=== PATIENT | female | born 1950 | race Caucasian/White ===

== ENCOUNTER 2021-08-05 08:34 | Outpatient (CLI) | payer MEDICARE | END 2021-08-05 08:35 | disposition home or self-care (01) | LOC: CSHWCC 08:34 | PROVIDERS: ATTEND Nurse Practitioner Family | DX: I83.12 Varicose veins of left lower extremity with inflammation (principal); S90.562D Insect bite (nonvenomous), left ankle, subsequent encounter; E11.622 Type 2 diabetes mellitus with other skin ulcer; L97.321 Non-pressure chronic ulcer of left ankle limited to breakdown of skin; L97.821 Non-pressure chronic ulcer of other part of left lower leg limited to breakdown of skin; E11.65 Type 2 diabetes mellitus with hyperglycemia; D64.9 Anemia, unspecified; E78.2 Mixed hyperlipidemia; G99.0 Autonomic neuropathy in diseases classified elsewhere; I10 Essential (primary) hypertension; I89.0 Lymphedema, not elsewhere classified; R60.0 Localized edema | CPT/HCPCS: 97139; G0463; 99213 ==

== ENCOUNTER 2021-08-06 14:22 | Outpatient (CLI) | payer MEDICARE | END 2021-08-06 14:23 | disposition home or self-care (01) | LOC: CSHULT 14:22 | PROVIDERS: ATTEND Student in an Organized Health Care Education/Training Program | DX: R60.0 Localized edema (principal) ==

== ENCOUNTER 2021-08-19 11:27 | Outpatient (CLI) | payer MEDICARE | END 2021-08-19 11:28 | disposition home or self-care (01) | LOC: CSHWCC 11:27 | PROVIDERS: ATTEND Nurse Practitioner Family | DX: I83.12 Varicose veins of left lower extremity with inflammation (principal); S80.822D Blister (nonthermal), left lower leg, subsequent encounter; S90.562D Insect bite (nonvenomous), left ankle, subsequent encounter; L97.321 Non-pressure chronic ulcer of left ankle limited to breakdown of skin; L97.821 Non-pressure chronic ulcer of other part of left lower leg limited to breakdown of skin; D64.9 Anemia, unspecified; E11.65 Type 2 diabetes mellitus with hyperglycemia; E78.2 Mixed hyperlipidemia; G99.0 Autonomic neuropathy in diseases classified elsewhere; I10 Essential (primary) hypertension; I89.0 Lymphedema, not elsewhere classified; R60.0 Localized edema ==

== ENCOUNTER 2021-09-20 09:00 | Emergency (ER) | payer MEDICARE ==
[2021-09-20 09:35] LABS: #Eosinphils 0.5 10x3/uL (0.0-0.5); #Monocytes 0.6 10x3/uL (0.0-1.1); #Neutrophils 3.8 10x3/uL (1.5-8.4); %Basophils 0.7 % (0.0-2.0); %Eosinophils 9.1 % (0.0-6.0); %Lymphocytes 11.4 % (18.0-47.0); %Neutrophils 68.6 % (40.0-75.0); Hemoglobin 9.6 g/dL (12.0-15.5); Mean Corpuscular HGB CONC 30.9 g/dL (32.0-36.0); Mean Corpuscular Hemoglobin 27.3 pg (27.0-33.0); Mean Corpuscular Volume 88.4 fl (81.6-98.3); Platelet Count 249 10x3/uL (150-450); RBC Distribution Width 16.2 % (11.5-14.5); Red Blood Cell (RBC) Count 3.52 10x6/uL (3.90-5.03); White Blood Cell (WBC) Count 5.5 10x3/uL (3.5-10.5)
[2021-09-20 09:50] LABS: ALT (SGPT) 17 U/L (8-55); AST (SGOT) 17 U/L (5-34); Albumin 3.3 g/dL (3.4-4.8); Alkaline Phosphatase 85 U/L (40-110); Anion Gap 16 mmol/L (10-20); BUN (Urea Nitrogen) 40 mg/dL (9.8-20.1); Bilirubin, Total 0.4 mg/dL (0.2-1.2); Calc. Creatinine Clearance 0 mL/min (70-130); Calcium 8.9 mg/dL (7.8-10.44); Carbon Dioxide 26 mmol/L (23-31); Chloride 104 mmol/L (98-107); Globulin 3.7 g/dL (2.4-3.5); Glucose 88 mg/dL (80-115); Potassium 3.7 mmol/L (3.5-5.1); Sodium 142 mmol/L (136-145)
== END 2021-09-20 10:30 | disposition home or self-care (01) ==
LOC: CSHERS 09:00
DX: I83.891 Varicose veins of right lower extremity with other complications (principal); E78.5 Hyperlipidemia, unspecified; E03.9 Hypothyroidism, unspecified; I10 Essential (primary) hypertension; E11.9 Type 2 diabetes mellitus without complications
CPT/HCPCS: 36415; 80053; 85025; 99283

== ENCOUNTER 2022-01-28 13:05 | Outpatient (CLI) | payer MEDICARE | END 2022-01-28 13:06 | disposition home or self-care (01) | LOC: CSHWCC 13:05 | PROVIDERS: ATTEND Nurse Practitioner Family | DX: I87.333 Chronic venous hypertension (idiopathic) with ulcer and inflammation of bilateral lower extremity (principal); L97.812 Non-pressure chronic ulcer of other part of right lower leg with fat layer exposed; L97.822 Non-pressure chronic ulcer of other part of left lower leg with fat layer exposed; R60.0 Localized edema; R21 Rash and other nonspecific skin eruption | CPT/HCPCS: 29581; 87206 ==

== ENCOUNTER 2022-02-11 09:53 | Outpatient (CLI) | payer MEDICARE | END 2022-02-11 09:54 | disposition home or self-care (01) | LOC: CSHWCC 09:53 | PROVIDERS: ATTEND Nurse Practitioner Family | DX: I87.332 Chronic venous hypertension (idiopathic) with ulcer and inflammation of left lower extremity (principal); L97.822 Non-pressure chronic ulcer of other part of left lower leg with fat layer exposed; R60.0 Localized edema ==

== ENCOUNTER 2022-02-25 08:19 | Outpatient (CLI) | payer MEDICARE | END 2022-02-25 08:20 | disposition home or self-care (01) | LOC: CSHWCC 08:19 | PROVIDERS: ATTEND Nurse Practitioner Family | DX: I87.333 Chronic venous hypertension (idiopathic) with ulcer and inflammation of bilateral lower extremity (principal); L97.812 Non-pressure chronic ulcer of other part of right lower leg with fat layer exposed; L97.822 Non-pressure chronic ulcer of other part of left lower leg with fat layer exposed; R60.0 Localized edema ==

== ENCOUNTER 2022-03-10 03:11 | Inpatient (IN) | payer MEDICARE ==
[2022-03-10] MEDS ORDERED: Ketorolac Tromethamine 30 MG/ML VIAL ONE (03:37)
[2022-03-10] MEDS ORDERED: Cefepime 2 GM VIAL ONE (03:46)
[2022-03-10] MEDS ORDERED: NOREPINEPHRINE 8 MG/250 ML-D5W 250 ML ONE (05:07)
[2022-03-10] MEDS ORDERED: NOREPINEPHRINE 8 MG/250 ML-D5W 250 ML IVPB SCH ×3 (07:15→16:15)
[2022-03-10 07:24] VITALS: BMI 43.2
[2022-03-10] MEDS ORDERED: VANCOMYCIN 2 GRAM/400 ML BAG 2 GM in Premix Bag 1 BAG IVPB SCH ×2 (07:45→08:00)
[2022-03-10] MEDS ORDERED: Aspirin Chewable 81 MG TAB PO SCH (08:00)
[2022-03-10 08:02] LABS: SARS-CoV-2 NAA Rapid Test Not Detected (NotDetected)
[2022-03-10 08:04] LABS: Bilirubin Neg (Negative); Blood, Urine 10 (Negative); Clarity Clear (Clear); Glucose, Urine (Dipstick) >=1000 mg/dL (Negative); Ketone, Urine 5 mg/dL (Negative); Leukocyte Negative (Negative); Nitrite Negative (Negative); Protein, Urine (Dipstick) 30 mg/dl (Neg-Trace); Urobilinogen Normal mg/dL (Less than 2)
[2022-03-10 08:05] LABS: Bacteria/HPF None Seen HPF (None Seen); RBC/HPF 0-3 HPF (0-3); Squamous Epithelial 0-3 HPF (0-3); WBC/HPF 0-3 HPF (0-3)
[2022-03-10 08:20] LABS: ALT (SGPT) 17 U/L (8-55); AST (SGOT) 24 U/L (5-34); Albumin 3.6 g/dL (3.4-4.8); Alkaline Phosphatase 96 U/L (40-110); Anion Gap 22 mmol/L (10-20); BUN (Urea Nitrogen) 34 mg/dL (9.8-20.1); Calc. Creatinine Clearance 61 mL/min (70-130); Calcium 9.6 mg/dL (7.8-10.44); Carbon Dioxide 22 mmol/L (23-31); Chloride 96 mmol/L (98-107); Estimated GFR 33; Globulin 3.9 g/dL (2.4-3.5); Glucose 266 mg/dL (83-110); Protein, Total 7.5 g/dL (5.8-8.1); Sodium 136 mmol/L (136-145)
[2022-03-10 08:21] LABS: Critical Call Chemistry NOT CRITICAL BUT CAL
[2022-03-10 08:23] LABS: Magnesium 1.7 mg/dL (1.6-2.6)
[2022-03-10 08:35] LABS: Glucose 246 mg/dL (83-110)
[2022-03-10 08:50] LABS: CKMB 7.7 ng/mL (0-6.6)
[2022-03-10 08:50] LABS: PTT 26.5 sec (22.0-33.0); Prothrombin Time 10.7 sec (9.5-12.1)
[2022-03-10] MEDS ORDERED: Furosemide 40 MG/4 ML VIAL SLOW IVP SCH (09:00)
[2022-03-10] MEDS ORDERED: Enoxaparin Sodium 40 MG/0.4 ML SYRINGE SC SCH (09:00)
[2022-03-10] MEDS: Lactated Ringer's 1,000 ML IV SCH ×2 (09:08→22:02)
[2022-03-10] MEDS: Pantoprazole 40 MG VIAL IVP SCH (09:08)
[2022-03-10] MEDS ORDERED: Communication Order-Pharmacy FS SCH (09:15)
[2022-03-10 09:34] LABS: CKMB 19.4 ng/mL (0-6.6)
[2022-03-10] MEDS ORDERED: Dextrose 50% Abboject 50 ML SYRINGE SLOW IVP PRN (09:38)
[2022-03-10] MEDS ORDERED: Dextrose 5% in Water 1,000 ML IV PRN (09:38)
[2022-03-10 10:17] LABS: Mean Corpuscular Volume 81.2 fl (81.6-98.3); Red Blood Cell (RBC) Count 3.83 10x6/uL (3.90-5.03); White Blood Cell (WBC) Count 18.5 10x3/uL (3.5-10.5)
[2022-03-10 10:18] LABS: MDiff Complete? YES; Manual Diff?? YES; Mean Corpuscular HGB CONC 32.2 g/dL (32.0-36.0); Mean Corpuscular Hemoglobin 26.1 pg (27.0-33.0); Mean Platelet Volume 8.7 fl (7.4-10.4); Platelet Count 394 10x3/uL (150-450); RBC Distribution Width 19.3 % (11.5-14.5)
[2022-03-10] MEDS ORDERED: Nitroglycerin 50 MG/250 ML BOT 250 ML ONE (10:56)
[2022-03-10] MEDS ORDERED: Heparin 10,000 UNITS/ 10 ML VIAL ONE (10:56)
[2022-03-10] MEDS ORDERED: Bivalirudin 250 MG VIAL ONE (10:57)
[2022-03-10] MEDS ORDERED: Adenosine 6 MG/2 ML VIAL ONE (10:57)
[2022-03-10] MEDS ORDERED: Verapamil 5 MG/2 ML VIAL ONE (10:57)
[2022-03-10] MEDS ORDERED: Lidocaine 1% 20 ML MDV ONE (10:58)
[2022-03-10] MEDS ORDERED: Midazolam HCl 2 mg/2 ml Vial ONE (10:59)
[2022-03-10] MEDS ORDERED: Fentanyl 100 MCG/2 ML VIAL ONE (10:59)
[2022-03-10 11:46] LABS: Band 26 % (5-11); Eosinophils 1 % (0-10); Lymphocytes 1 % (21-51); Monocytes 5 % (0-10); Neutrophil 65 % (42-75); Platelet Morphology Comment Appears Adequate; Reactive Lymphocytes 1 % (0-10)
[2022-03-10 11:47] LABS: Anisocytosis SLIGHT = 6-15 cells (100X) (0-5/hpf); Hypochromia SLIGHT = 6-15 cells (100X) (0-5/hpf); Macrocytosis SLIGHT = 6-15 cells (100X) (0-5/hpf); Microcytosis SLIGHT = 6-15 cells (100X) (0-5/hpf); Polychromasia SLIGHT = 2-3 cells (100X) (0-2/hpf)
[2022-03-10 11:48] LABS: Schistocytes SLIGHT = 2-5 cells (100X) (0-1/hpf); Toxic Granulation SLIGHT; Vacuoles SLIGHT
[2022-03-10] MEDS ORDERED: Nitroglycerin 0.4 MG TAB (25 Tab Bottle) SL PRN (11:54)
[2022-03-10] MEDS ORDERED: Sodium Chloride 0.9% 200 ML IV PRN (11:54)
[2022-03-10] MEDS ORDERED: Acetaminophen/Codeine 30-300mg Tablet PO PRN ×2 (11:54)
[2022-03-10] MEDS ORDERED: Vancomycin HCl 750 MG in Sodium Chloride 0.9% 250 ML 250 ML IVPB SCH (12:00)
[2022-03-10] MEDS: DOBUTamine 500 mg/250 ml 250 ML IVPB SCH ×2 (12:18→18:07)
[2022-03-10] MEDS: HumaLOG 300 UNITS/3 ML VIAL SC PRN (12:36)
[2022-03-10] MEDS ORDERED: Iopamidol 300 61% 100 ML VIAL FS ONE (13:48)
[2022-03-10 13:55] LABS: Lactic Acid 1.6 mmol/L (0.5-2.2)
[2022-03-10] MEDS: Gabapentin 100 MG CAP PO SCH ×2 (15:24→20:42)
[2022-03-10] MEDS: Pramipexole Di-HCl 1 MG TAB PO SCH ×2 (15:24→20:44)
[2022-03-10] MEDS: Cefepime 1 GM in Sodium Chloride 0.9% 100 ML IVPB SCH (15:26)
[2022-03-10 18:17] LABS: Actual Bicarbonate (HCO3a) 24.8 mEq/L (22-28); Base Excess (BEa) 0.4 mEq/L (-2.0 to +3.0); CO2 Tension 38.6 mmHg (35.0-45.0); Calcium, Ionized (arterial) 1.08 mmol/L (1.12-1.30); Carboxyhemoglobin (COHb) 0.1 gm% (0.0-3.0); Hemoglobin (Hb) 10.2 g/dL (12.0-16.0); O2 Tension (PaO2), arterial 179.9 mmHg (> 70.0); Puncture Site RRA; pH, Arterial 7.43 (7.35-7.45)
[2022-03-11] MEDS: DOBUTamine 500 mg/250 ml 250 ML IVPB SCH ×2 (00:10→08:19)
[2022-03-11] MEDS: Cefepime 1 GM in Sodium Chloride 0.9% 100 ML IVPB SCH ×2 (03:17→15:57)
[2022-03-11 03:37] LABS: #Monocytes 0.7 10x3/uL (0.0-1.1); #Neutrophils 10.4 10x3/uL (1.5-8.4); %Basophils 0.3 % (0.0-2.0); %Eosinophils 0.3 % (0.0-6.0); %Lymphocytes 3.5 % (18.0-47.0); %Monocytes 5.8 % (0.0-10.0); %Neutrophils 89.8 % (40.0-75.0); Mean Corpuscular HGB CONC 31.1 g/dL (32.0-36.0); Mean Corpuscular Hemoglobin 25.9 pg (27.0-33.0); Mean Corpuscular Volume 83.2 fl (81.6-98.3); Mean Platelet Volume 8.7 fl (7.4-10.4); Platelet Count 277 10x3/uL (150-450); RBC Distribution Width 19.4 % (11.5-14.5); Red Blood Cell (RBC) Count 3.09 10x6/uL (3.90-5.03); White Blood Cell (WBC) Count 11.6 10x3/uL (3.5-10.5)
[2022-03-11 03:52] LABS: ALT (SGPT) 47 U/L (8-55); AST (SGOT) 96 U/L (5-34); Albumin 2.9 g/dL (3.4-4.8); Alkaline Phosphatase 86 U/L (40-110); Anion Gap 15 mmol/L (10-20); BUN (Urea Nitrogen) 34 mg/dL (9.8-20.1); Bilirubin, Total 0.5 mg/dL (0.2-1.2); Calc. Creatinine Clearance 60 mL/min (70-130); Calcium 8.7 mg/dL (7.8-10.44); Carbon Dioxide 26 mmol/L (23-31); Chloride 98 mmol/L (98-107); Estimated GFR 32; Globulin 3.3 g/dL (2.4-3.5); Glucose 150 mg/dL (83-110); Potassium 3.6 mmol/L (3.5-5.1); Protein, Total 6.2 g/dL (5.8-8.1); Sodium 135 mmol/L (136-145)
[2022-03-11] MEDS: Pantoprazole 40 MG VIAL IVP SCH (08:07)
[2022-03-11] MEDS: Atorvastatin Calcium 40 MG TAB PO SCH (08:07)
[2022-03-11] MEDS: Aspirin Chewable 81 MG TAB PO SCH (08:07)
[2022-03-11] MEDS: Gabapentin 100 MG CAP PO SCH ×3 (08:08→21:03)
[2022-03-11] MEDS: Pramipexole Di-HCl 1 MG TAB PO SCH ×3 (08:08→21:03)
[2022-03-11] MEDS: Lactated Ringer's 1,000 ML IV SCH (08:09)
[2022-03-11] MEDS: Enoxaparin Sodium 40 MG/0.4 ML SYRINGE SC SCH (09:06)
[2022-03-11] MEDS ORDERED: VANCOMYCIN 1.25 GM/250 ML BAG 1.25 GM in Premix Bag 1 BAG IVPB SCH (10:00)
[2022-03-11] MEDS: HumaLOG 300 UNITS/3 ML VIAL SC PRN ×2 (11:36→16:09)
[2022-03-11] MEDS: diphenhydrAMINE 30 GM TUBE TOP PRN (16:43)
[2022-03-11] MEDS: Mag-Al 1200 mg/1200 mg/30 ML UDCUP PO SCH (23:02)
[2022-03-11 23:27] LABS: Anion Gap 13 mmol/L (10-20); BUN (Urea Nitrogen) 31 mg/dL (9.8-20.1); Calc. Creatinine Clearance 73 mL/min (70-130); Calcium 9.1 mg/dL (7.8-10.44); Carbon Dioxide 26 mmol/L (23-31); Chloride 98 mmol/L (98-107); Estimated GFR 40; Glucose 145 mg/dL (83-110); Magnesium 1.7 mg/dL (1.6-2.6); Potassium 3.3 mmol/L (3.5-5.1); Sodium 134 mmol/L (136-145)
[2022-03-12] MEDS ORDERED: Potassium Chloride 20 MEQ TAB PO SCH (00:15)
[2022-03-12] MEDS ORDERED: Magnesium Sulfate/D5W 1 GM/100 ML BAG IVPB SCH (00:15)
[2022-03-12] MEDS: Mag-Al 1200 mg/1200 mg/30 ML UDCUP PO SCH (03:20)
[2022-03-12] MEDS: Cefepime 1 GM in Sodium Chloride 0.9% 100 ML IVPB SCH ×2 (03:22→17:03)
[2022-03-12 03:48] LABS: ALV-art Gradient 132.125 mmHg (0-20); Actual Bicarbonate (HCO3a) 27.3 mEq/L (22-28); Base Excess (BEa) 2.1 mEq/L (-2.0 to +3.0); CO2 Tension 45.1 mmHg (35.0-45.0); Calcium, Ionized (arterial) 1.14 mmol/L (1.12-1.30); Carboxyhemoglobin (COHb) 0.1 gm% (0.0-3.0); Hemoglobin (Hb) 10.4 g/dL (12.0-16.0); O2 Tension (PaO2), arterial 96.7 mmHg (> 70.0); Potassium - ABG Lab 3.9 mmol/L (3.70-5.30); Puncture Site RRA
[2022-03-12 04:16] LABS: #Eosinphils 0.1 10x3/uL (0.0-0.5); #Monocytes 0.6 10x3/uL (0.0-1.1); #Neutrophils 8.4 10x3/uL (1.5-8.4); %Basophils 0.4 % (0.0-2.0); %Eosinophils 1.2 % (0.0-6.0); %Lymphocytes 4.4 % (18.0-47.0); %Monocytes 5.8 % (0.0-10.0); %Neutrophils 87.8 % (40.0-75.0); Hemoglobin 8.1 g/dL (12.0-15.5); Mean Corpuscular HGB CONC 30.8 g/dL (32.0-36.0); Mean Corpuscular Hemoglobin 25.7 pg (27.0-33.0); Mean Corpuscular Volume 83.5 fl (81.6-98.3); Mean Platelet Volume 9.1 fl (7.4-10.4); Platelet Count 284 10x3/uL (150-450); RBC Distribution Width 19.3 % (11.5-14.5); Red Blood Cell (RBC) Count 3.15 10x6/uL (3.90-5.03); White Blood Cell (WBC) Count 9.6 10x3/uL (3.5-10.5)
[2022-03-12 04:19] LABS: ALT (SGPT) 58 U/L (8-55); AST (SGOT) 89 U/L (5-34); Alkaline Phosphatase 98 U/L (40-110); Anion Gap 13 mmol/L (10-20); BUN (Urea Nitrogen) 29 mg/dL (9.8-20.1); Bilirubin, Total 0.5 mg/dL (0.2-1.2); Calc. Creatinine Clearance 77 mL/min (70-130); Calcium 8.9 mg/dL (7.8-10.44); Carbon Dioxide 28 mmol/L (23-31); Chloride 99 mmol/L (98-107); Estimated GFR 43; Globulin 3.4 g/dL (2.4-3.5); Glucose 145 mg/dL (83-110); Potassium 4.2 mmol/L (3.5-5.1); Protein, Total 6.4 g/dL (5.8-8.1); Sodium 136 mmol/L (136-145)
[2022-03-12] MEDS: Enoxaparin Sodium 40 MG/0.4 ML SYRINGE SC SCH (09:34)
[2022-03-12] MEDS: Gabapentin 100 MG CAP PO SCH ×3 (09:35→20:28)
[2022-03-12] MEDS: Pramipexole Di-HCl 1 MG TAB PO SCH ×3 (09:35→20:26)
[2022-03-12] MEDS: Atorvastatin Calcium 40 MG TAB PO SCH (09:36)
[2022-03-12] MEDS: Aspirin Chewable 81 MG TAB PO SCH (09:36)
[2022-03-12] MEDS: Pantoprazole 40 MG VIAL IVP SCH (09:36)
[2022-03-12] MEDS: Lactated Ringer's 1,000 ML IV SCH (09:50)
[2022-03-12] MEDS ORDERED: Bumetanide 1 MG/4 ML VIAL IVP SCH ×2 (11:00→14:30)
[2022-03-12] MEDS: HumaLOG 300 UNITS/3 ML VIAL SC PRN (12:10)
[2022-03-12] MEDS: Metoprolol Tartrate 5 MG/5 ML VIAL IVP SCH ×2 (21:05→21:15)
[2022-03-12 21:26] LABS: Anion Gap 13 mmol/L (10-20); BUN (Urea Nitrogen) 34 mg/dL (9.8-20.1); Calc. Creatinine Clearance 63 mL/min (70-130); Calcium 9.1 mg/dL (7.8-10.44); Carbon Dioxide 26 mmol/L (23-31); Chloride 97 mmol/L (98-107); Estimated GFR 34; Glucose 132 mg/dL (83-110); Magnesium 1.8 mg/dL (1.6-2.6); Potassium 3.9 mmol/L (3.5-5.1); Sodium 132 mmol/L (136-145)
[2022-03-12] MEDS ORDERED: Digoxin 0.5 MG/2 ML AMP SLOW IVP SCH (21:30)
[2022-03-12] MEDS: Digoxin 0.5 MG/2 ML AMP SLOW IVP SCH ×2 (21:45→22:04)
[2022-03-12] MEDS: Magnesium Oxide 400 MG TAB PO SCH (22:28)
[2022-03-13] MEDS: diphenhydrAMINE 30 GM TUBE TOP PRN ×2 (00:30→22:53)
[2022-03-13] MEDS ORDERED: Digoxin 0.5 MG/2 ML AMP SLOW IVP SCH (03:30)
[2022-03-13] MEDS: Cefepime 1 GM in Sodium Chloride 0.9% 100 ML IVPB SCH ×2 (04:26→18:17)
[2022-03-13 05:19] LABS: #Basophils 0.1 10x3/uL (0.0-0.2); #Eosinphils 0.1 10x3/uL (0.0-0.5); #Monocytes 0.9 10x3/uL (0.0-1.1); #Neutrophils 8.2 10x3/uL (1.5-8.4); %Basophils 0.6 % (0.0-2.0); %Eosinophils 0.7 % (0.0-6.0); %Lymphocytes 5.3 % (18.0-47.0); %Neutrophils 83.9 % (40.0-75.0); Hemoglobin 8.7 g/dL (12.0-15.5); Mean Corpuscular HGB CONC 30.7 g/dL (32.0-36.0); Mean Corpuscular Hemoglobin 26.3 pg (27.0-33.0); Mean Corpuscular Volume 85.5 fl (81.6-98.3); Mean Platelet Volume 9.2 fl (7.4-10.4); Platelet Count 308 10x3/uL (150-450); RBC Distribution Width 19.2 % (11.5-14.5); Red Blood Cell (RBC) Count 3.31 10x6/uL (3.90-5.03); White Blood Cell (WBC) Count 9.7 10x3/uL (3.5-10.5)
[2022-03-13 05:21] LABS: Anion Gap 12 mmol/L (10-20); BUN (Urea Nitrogen) 38 mg/dL (9.8-20.1); Calc. Creatinine Clearance 44 mL/min (70-130); Carbon Dioxide 30 mmol/L (23-31); Chloride 98 mmol/L (98-107); Estimated GFR 22; Glucose 106 mg/dL (83-110); Magnesium 2.1 mg/dL (1.6-2.6); Potassium 4.3 mmol/L (3.5-5.1); Sodium 136 mmol/L (136-145)
[2022-03-13] MEDS ORDERED: Carvedilol 3.125 MG TAB PO SCH (08:00)
[2022-03-13] MEDS: Magnesium Oxide 400 MG TAB PO SCH (09:14)
[2022-03-13] MEDS: Gabapentin 100 MG CAP PO SCH ×3 (09:14→21:25)
[2022-03-13] MEDS: Aspirin Chewable 81 MG TAB PO SCH (09:14)
[2022-03-13] MEDS: Digoxin 0.25 MG TAB PO SCH (09:14)
[2022-03-13] MEDS: Pantoprazole 40 MG VIAL IVP SCH (09:15)
[2022-03-13] MEDS: Atorvastatin Calcium 40 MG TAB PO SCH (09:15)
[2022-03-13] MEDS: Enoxaparin Sodium 40 MG/0.4 ML SYRINGE SC SCH (09:15)
[2022-03-13] MEDS: Pramipexole Di-HCl 1 MG TAB PO SCH ×3 (09:15→21:25)
[2022-03-13] MEDS ORDERED: Carvedilol 6.25 MG TAB PO SCH (11:00)
[2022-03-13] MEDS: Carvedilol 6.25 MG TAB PO SCH (18:18)
[2022-03-13] MEDS ORDERED: Albuterol Sulfate 2.5 mg/3 ml Neb ONE (20:20)
[2022-03-13] MEDS ORDERED: Ipratropium Bromide 2.5 ml Neb ONE (20:20)
[2022-03-13] MEDS ORDERED: Morphine 4 MG/ML VIAL ONE (20:26)
[2022-03-13] MEDS ORDERED: Morphine 2 MG/ML VIAL SLOW IVP SCH (20:45)
[2022-03-13] MEDS ORDERED: methylPREDNISolone Sod Succ 40 MG VIAL IVP SCH (21:15)
[2022-03-13 21:16] LABS: Actual Bicarbonate (HCO3a) 28.8 mEq/L (22-28); Base Excess (BEa) 2.2 mEq/L (-2.0 to +3.0); CO2 Tension 55.4 mmHg (35.0-45.0); Calcium, Ionized (arterial) 1.13 mmol/L (1.12-1.30); Carboxyhemoglobin (COHb) 0.3 gm% (0.0-3.0); Critical Notified By: CP.PH; Hemoglobin (Hb) 10.1 g/dL (12.0-16.0); O2 Tension (PaO2), arterial 64.5 mmHg (> 70.0); Potassium - ABG Lab 4.4 mmol/L (3.70-5.30); Puncture Site RRA; RapidComm Collect By CP.PH; pH, Arterial 7.33 (7.35-7.45)
[2022-03-14] MEDS ORDERED: diphenhydrAMINE 50 MG/ML VIAL IVP SCH ×2 (00:30→07:00)
[2022-03-14] MEDS ORDERED: diphenhydrAMINE 50 MG/ML VIAL ONE (00:32)
[2022-03-14] MEDS: Lorazepam 2 MG/ML VIAL SLOW IVP PRN ×2 (00:34→05:50)
[2022-03-14] MEDS ORDERED: methylPREDNISolone Sod Succ/PF 125 MG/2 ML VIAL IVP SCH (00:45)
[2022-03-14] MEDS: Hydrocortisone 1% Cream 30 GM TUBE TOP PRN ×2 (01:04→11:16)
[2022-03-14 04:06] LABS: #Monocytes 0.2 10x3/uL (0.0-1.1); #Neutrophils 8.9 10x3/uL (1.5-8.4); %Basophils 0.2 % (0.0-2.0); %Lymphocytes 2.2 % (18.0-47.0); %Monocytes 2.5 % (0.0-10.0); %Neutrophils 94.5 % (40.0-75.0); Hemoglobin 8.7 g/dL (12.0-15.5); Mean Corpuscular HGB CONC 30.9 g/dL (32.0-36.0); Mean Corpuscular Hemoglobin 25.8 pg (27.0-33.0); Mean Corpuscular Volume 83.7 fl (81.6-98.3); Mean Platelet Volume 8.8 fl (7.4-10.4); Platelet Count 296 10x3/uL (150-450); RBC Distribution Width 18.9 % (11.5-14.5); Red Blood Cell (RBC) Count 3.37 10x6/uL (3.90-5.03); White Blood Cell (WBC) Count 9.4 10x3/uL (3.5-10.5)
[2022-03-14] MEDS: Morphine 2 MG/ML VIAL SLOW IVP PRN ×2 (04:13→23:02)
[2022-03-14 04:21] LABS: Anion Gap 16 mmol/L (10-20); BUN (Urea Nitrogen) 50 mg/dL (9.8-20.1); Calc. Creatinine Clearance 28 mL/min (70-130); Calcium 8.9 mg/dL (7.8-10.44); Carbon Dioxide 25 mmol/L (23-31); Chloride 97 mmol/L (98-107); Estimated GFR 13; Glucose 177 mg/dL (83-110); Magnesium 2.3 mg/dL (1.6-2.6); Potassium 5.3 mmol/L (3.5-5.1); Sodium 133 mmol/L (136-145)
[2022-03-14] MEDS: Cefepime 1 GM in Sodium Chloride 0.9% 100 ML IVPB SCH (05:11)
[2022-03-14] MEDS: HumaLOG 300 UNITS/3 ML VIAL SC PRN (09:22)
[2022-03-14] MEDS: Carvedilol 6.25 MG TAB PO SCH ×2 (09:23→17:05)
[2022-03-14] MEDS: Aspirin Chewable 81 MG TAB PO SCH (09:24)
[2022-03-14] MEDS: Digoxin 0.25 MG TAB PO SCH (09:24)
[2022-03-14] MEDS: Atorvastatin Calcium 40 MG TAB PO SCH (09:24)
[2022-03-14] MEDS: Pramipexole Di-HCl 1 MG TAB PO SCH ×3 (09:25→20:56)
[2022-03-14] MEDS: Gabapentin 100 MG CAP PO SCH ×3 (09:25→20:55)
[2022-03-14] MEDS ORDERED: Dexmedetomidine In 0.9 % NaCl 100 ML IVPB SCH (10:15)
[2022-03-14] MEDS ORDERED: methylPREDNISolone Sod Succ 40 MG VIAL IVP SCH (10:15)
[2022-03-14] MEDS: Pantoprazole 40 MG VIAL IVP SCH (11:14)
[2022-03-14] MEDS: diphenhydrAMINE 30 GM TUBE TOP PRN (11:16)
[2022-03-14] MEDS: Enoxaparin Sodium 30 MG/0.3 ML SYRINGE SC SCH (11:22)
[2022-03-14 15:10] LABS: Anion Gap 17 mmol/L (10-20); BUN (Urea Nitrogen) 57 mg/dL (9.8-20.1); Calc. Creatinine Clearance 27 mL/min (70-130); Calcium 9.3 mg/dL (7.8-10.44); Carbon Dioxide 22 mmol/L (23-31); Chloride 96 mmol/L (98-107); Estimated GFR 12; Glucose 176 mg/dL (83-110); Sodium 130 mmol/L (136-145)
[2022-03-14] MEDS: diphenhydrAMINE 50 MG/ML VIAL IVP PRN (15:21)
[2022-03-14 19:44] LABS: Anion Gap 19 mmol/L (10-20); BUN (Urea Nitrogen) 59 mg/dL (9.8-20.1); Calc. Creatinine Clearance 27 mL/min (70-130); Calcium 9.4 mg/dL (7.8-10.44); Carbon Dioxide 20 mmol/L (23-31); Chloride 96 mmol/L (98-107); Estimated GFR 12; Glucose 146 mg/dL (83-110); Potassium 5.5 mmol/L (3.5-5.1); Sodium 129 mmol/L (136-145)
[2022-03-14] MEDS: methylPREDNISolone Sod Succ 40 MG VIAL IVP SCH (20:52)
[2022-03-15 01:40] LABS: Anion Gap 19 mmol/L (10-20); BUN (Urea Nitrogen) 63 mg/dL (9.8-20.1); Calc. Creatinine Clearance 28 mL/min (70-130); Calcium 9.6 mg/dL (7.8-10.44); Carbon Dioxide 21 mmol/L (23-31); Chloride 97 mmol/L (98-107); Estimated GFR 13; Glucose 141 mg/dL (83-110); Potassium 4.9 mmol/L (3.5-5.1); Sodium 132 mmol/L (136-145)
[2022-03-15 04:17] LABS: #Monocytes 0.4 10x3/uL (0.0-1.1); #Neutrophils 8.3 10x3/uL (1.5-8.4); %Lymphocytes 2.8 % (18.0-47.0); %Monocytes 4.3 % (0.0-10.0); %Neutrophils 92.2 % (40.0-75.0); Hemoglobin 9.2 g/dL (12.0-15.5); Mean Corpuscular HGB CONC 31.6 g/dL (32.0-36.0); Mean Corpuscular Hemoglobin 25.8 pg (27.0-33.0); Mean Corpuscular Volume 81.5 fl (81.6-98.3); Platelet Count 342 10x3/uL (150-450); RBC Distribution Width 18.5 % (11.5-14.5); Red Blood Cell (RBC) Count 3.57 10x6/uL (3.90-5.03); White Blood Cell (WBC) Count 8.9 10x3/uL (3.5-10.5)
[2022-03-15 04:23] LABS: Anion Gap 17 mmol/L (10-20); BUN (Urea Nitrogen) 67 mg/dL (9.8-20.1); Calc. Creatinine Clearance 28 mL/min (70-130); Calcium 9.6 mg/dL (7.8-10.44); Carbon Dioxide 25 mmol/L (23-31); Chloride 96 mmol/L (98-107); Estimated GFR 13; Glucose 167 mg/dL (83-110); Magnesium 2.5 mg/dL (1.6-2.6); Phosphorus 5.4 mg/dL (2.3-4.7); Potassium 4.8 mmol/L (3.5-5.1); Sodium 133 mmol/L (136-145)
[2022-03-15] MEDS: Aspirin Chewable 81 MG TAB PO SCH (10:05)
[2022-03-15] MEDS: Atorvastatin Calcium 40 MG TAB PO SCH (10:05)
[2022-03-15] MEDS: methylPREDNISolone Sod Succ 40 MG VIAL IVP SCH ×2 (10:12→20:27)
[2022-03-15] MEDS: Pantoprazole 40 MG VIAL IVP SCH (10:14)
[2022-03-15] MEDS: Gabapentin 100 MG CAP PO SCH ×3 (10:16→20:29)
[2022-03-15] MEDS: Pramipexole Di-HCl 1 MG TAB PO SCH ×3 (10:16→20:28)
[2022-03-15] MEDS: Carvedilol 6.25 MG TAB PO SCH ×2 (10:40→17:12)
[2022-03-15] MEDS: HumaLOG 300 UNITS/3 ML VIAL SC PRN ×3 (11:40→21:51)
[2022-03-15] MEDS ORDERED: Heparin 5,000 UNITS/ML VIAL SC SCH ×2 (12:00→21:00)
[2022-03-15] MEDS ORDERED: Apixaban 5 MG TAB PO SCH (14:00)
[2022-03-15] MEDS: Enoxaparin Sodium 30 MG/0.3 ML SYRINGE SC SCH (19:46)
[2022-03-15] MEDS: diphenhydrAMINE 50 MG/ML VIAL IVP PRN (20:28)
[2022-03-15] MEDS: Apixaban 5 MG TAB PO SCH (20:29)
[2022-03-15] MEDS: Lorazepam 2 MG/ML VIAL SLOW IVP PRN (21:30)
[2022-03-15] MEDS ORDERED: Morphine 2 MG/ML VIAL SLOW IVP PRN (22:20)
[2022-03-16] MEDS ORDERED: Albumin 25% 25 GM/100 ML BOT IVPB SCH (01:00)
[2022-03-16] MEDS ORDERED: NOREPINEPHRINE 8 MG/250 ML-D5W 250 ML IVPB SCH (01:00)
[2022-03-16] MEDS: diphenhydrAMINE 50 MG/ML VIAL IVP PRN ×2 (02:54→11:24)
[2022-03-16] MEDS ORDERED: Sterile Water 10 ML VIAL FS PRN (03:00)
[2022-03-16] MEDS ORDERED: Ziprasidone 20 MG VIAL IM SCH (03:00)
[2022-03-16 04:11] LABS: #Monocytes 0.3 10x3/uL (0.0-1.1); #Neutrophils 9.9 10x3/uL (1.5-8.4); %Basophils 0.1 % (0.0-2.0); %Lymphocytes 2.7 % (18.0-47.0); %Neutrophils 93.5 % (40.0-75.0); Hemoglobin 9.3 g/dL (12.0-15.5); Mean Corpuscular HGB CONC 31.8 g/dL (32.0-36.0); Mean Corpuscular Hemoglobin 25.6 pg (27.0-33.0); Mean Corpuscular Volume 80.4 fl (81.6-98.3); Platelet Count 410 10x3/uL (150-450); RBC Distribution Width 18.7 % (11.5-14.5); Red Blood Cell (RBC) Count 3.63 10x6/uL (3.90-5.03); White Blood Cell (WBC) Count 10.6 10x3/uL (3.5-10.5)
[2022-03-16 04:30] LABS: Anion Gap 16 mmol/L (10-20); BUN (Urea Nitrogen) 88 mg/dL (9.8-20.1); Calc. Creatinine Clearance 27 mL/min (70-130); Calcium 9.2 mg/dL (7.8-10.44); Carbon Dioxide 26 mmol/L (23-31); Chloride 97 mmol/L (98-107); Estimated GFR 12; Glucose 188 mg/dL (83-110); Magnesium 2.6 mg/dL (1.6-2.6); Potassium 4.3 mmol/L (3.5-5.1); Sodium 135 mmol/L (136-145)
[2022-03-16] MEDS ORDERED: cefTRIAXone Sodium 2,000 MG in Syringe 0 ML IVPB SCH (08:45)
[2022-03-16] MEDS ORDERED: cefTRIAXone\\ROCEPHIN 2 GM in Sodium Chloride 0.9% 100 ML IVPB SCH (09:00)
[2022-03-16] MEDS: methylPREDNISolone Sod Succ 40 MG VIAL IVP SCH ×2 (10:30→20:24)
[2022-03-16] MEDS: Pantoprazole 40 MG VIAL IVP SCH (10:30)
[2022-03-16] MEDS: Pramipexole Di-HCl 1 MG TAB PO SCH ×3 (10:54→20:25)
[2022-03-16] MEDS: Apixaban 5 MG TAB PO SCH ×2 (10:54→20:24)
[2022-03-16] MEDS: Atorvastatin Calcium 40 MG TAB PO SCH (10:54)
[2022-03-16] MEDS ORDERED: Bumetanide 1 MG/4 ML VIAL IM SCH (11:00)
[2022-03-16] MEDS: Carvedilol 6.25 MG TAB PO SCH ×2 (11:16→19:18)
[2022-03-16] MEDS: diphenhydrAMINE 30 GM TUBE TOP PRN (12:20)
[2022-03-16] MEDS: Hydrocortisone 1% Cream 30 GM TUBE TOP PRN (12:20)
[2022-03-16] MEDS: HumaLOG 300 UNITS/3 ML VIAL SC PRN ×2 (16:09→20:29)
[2022-03-16] MEDS: Gabapentin 100 MG CAP PO SCH (19:45)
[2022-03-16] MEDS: Ziprasidone 20 MG VIAL IM PRN (20:24)
[2022-03-16] MEDS ORDERED: Sterile Water 10 ML ONE (20:27)
[2022-03-17 04:12] LABS: #Eosinphils 0.1 10x3/uL (0.0-0.5); #Monocytes 0.3 10x3/uL (0.0-1.1); #Neutrophils 6.3 10x3/uL (1.5-8.4); %Eosinophils 1.8 % (0.0-6.0); %Lymphocytes 4.5 % (18.0-47.0); %Monocytes 4.1 % (0.0-10.0); %Neutrophils 89.2 % (40.0-75.0); Hemoglobin 8.6 g/dL (12.0-15.5); Mean Corpuscular HGB CONC 32.1 g/dL (32.0-36.0); Mean Corpuscular Hemoglobin 25.9 pg (27.0-33.0); Mean Corpuscular Volume 80.7 fl (81.6-98.3); Mean Platelet Volume 8.6 fl (7.4-10.4); Platelet Count 332 10x3/uL (150-450); Red Blood Cell (RBC) Count 3.32 10x6/uL (3.90-5.03)
[2022-03-17 06:14] LABS: Anion Gap 15 mmol/L (10-20); BUN (Urea Nitrogen) 100 mg/dL (9.8-20.1); Calc. Creatinine Clearance 30 mL/min (70-130); Calcium 8.9 mg/dL (7.8-10.44); Carbon Dioxide 28 mmol/L (23-31); Chloride 103 mmol/L (98-107); Estimated GFR 14; Glucose 159 mg/dL (83-110); Magnesium 2.8 mg/dL (1.6-2.6); Potassium 4.5 mmol/L (3.5-5.1); Sodium 141 mmol/L (136-145)
[2022-03-17] MEDS ORDERED: Carvedilol 3.125 MG TAB PO SCH (09:00)
[2022-03-17] MEDS: methylPREDNISolone Sod Succ 40 MG VIAL IVP SCH ×2 (09:42→19:58)
[2022-03-17] MEDS: HumaLOG 300 UNITS/3 ML VIAL SC PRN ×3 (09:46→22:03)
[2022-03-17] MEDS: Apixaban 5 MG TAB PO SCH ×2 (09:47→19:57)
[2022-03-17] MEDS: Atorvastatin Calcium 40 MG TAB PO SCH (09:47)
[2022-03-17] MEDS: Pramipexole Di-HCl 1 MG TAB PO SCH ×3 (09:47→19:57)
[2022-03-17] MEDS: Pantoprazole 40 MG VIAL IVP SCH (09:47)
[2022-03-17 12:44] LABS: Creatinine, Urine 65.29 mg/dL (47-110)
[2022-03-17] MEDS: Carvedilol 3.125 MG TAB PO SCH (17:08)
[2022-03-17] MEDS: Carvedilol 6.25 MG TAB PO SCH (19:36)
[2022-03-17] MEDS: Ziprasidone 20 MG VIAL IM PRN (21:02)
[2022-03-17] MEDS ORDERED: Sterile Water 10 ML ONE (21:03)
[2022-03-17] MEDS: Hydrocortisone 1% Cream 30 GM TUBE TOP PRN (21:08)
[2022-03-17] MEDS: diphenhydrAMINE 30 GM TUBE TOP PRN (21:08)
[2022-03-18 03:58] LABS: #Monocytes 0.3 10x3/uL (0.0-1.1); #Neutrophils 4.9 10x3/uL (1.5-8.4); %Lymphocytes 5.2 % (18.0-47.0); %Monocytes 5.6 % (0.0-10.0); %Neutrophils 88.1 % (40.0-75.0); Hemoglobin 8.9 g/dL (12.0-15.5); Mean Corpuscular HGB CONC 31.7 g/dL (32.0-36.0); Mean Corpuscular Hemoglobin 25.7 pg (27.0-33.0); Mean Corpuscular Volume 81.2 fl (81.6-98.3); Mean Platelet Volume 8.8 fl (7.4-10.4); Platelet Count 342 10x3/uL (150-450); RBC Distribution Width 19.3 % (11.5-14.5); Red Blood Cell (RBC) Count 3.46 10x6/uL (3.90-5.03); White Blood Cell (WBC) Count 5.6 10x3/uL (3.5-10.5)
[2022-03-18 04:20] LABS: Anion Gap 14 mmol/L (10-20); BUN (Urea Nitrogen) 98 mg/dL (9.8-20.1); Calc. Creatinine Clearance 41 mL/min (70-130); Calcium 8.7 mg/dL (7.8-10.44); Carbon Dioxide 30 mmol/L (23-31); Chloride 104 mmol/L (98-107); Estimated GFR 20; Glucose 184 mg/dL (83-110); Potassium 4.7 mmol/L (3.5-5.1); Sodium 143 mmol/L (136-145)
[2022-03-18] MEDS: Pantoprazole 40 MG VIAL IVP SCH (08:36)
[2022-03-18] MEDS: methylPREDNISolone Sod Succ 40 MG VIAL IVP SCH ×2 (08:36→21:11)
[2022-03-18] MEDS: Carvedilol 3.125 MG TAB PO SCH ×2 (08:37→17:21)
[2022-03-18] MEDS: Atorvastatin Calcium 40 MG TAB PO SCH (08:38)
[2022-03-18] MEDS: Apixaban 5 MG TAB PO SCH ×2 (08:38→21:11)
[2022-03-18] MEDS: Pramipexole Di-HCl 1 MG TAB PO SCH ×3 (08:38→21:11)
[2022-03-18] MEDS: HumaLOG 300 UNITS/3 ML VIAL SC PRN ×3 (08:50→17:51)
[2022-03-18] MEDS: Hydrocortisone 1% Cream 30 GM TUBE TOP PRN (11:38)
[2022-03-19] MEDS ORDERED: Acetaminophen 325 MG TAB PO SCH (02:15)
[2022-03-19] MEDS ORDERED: Sterile Water 10 ML ONE (04:54)
[2022-03-19] MEDS: Ziprasidone 20 MG VIAL IM PRN (05:00)
[2022-03-19] MEDS ORDERED: Pantoprazole 40 MG VIAL ONE (08:40)
[2022-03-19] MEDS: Pantoprazole 40 MG VIAL IVP SCH (08:42)
[2022-03-19] MEDS: methylPREDNISolone Sod Succ 40 MG VIAL IVP SCH (08:43)
[2022-03-19] MEDS: Carvedilol 3.125 MG TAB PO SCH ×2 (08:46→17:05)
[2022-03-19] MEDS: Atorvastatin Calcium 40 MG TAB PO SCH (08:47)
[2022-03-19] MEDS: Apixaban 5 MG TAB PO SCH ×2 (08:47→22:13)
[2022-03-19] MEDS: Pramipexole Di-HCl 1 MG TAB PO SCH ×3 (08:53→22:12)
[2022-03-19] MEDS: HumaLOG 300 UNITS/3 ML VIAL SC PRN ×2 (08:54→17:06)
[2022-03-19] MEDS: diphenhydrAMINE 50 MG/ML VIAL IVP PRN ×2 (09:06→23:59)
[2022-03-19 09:15] LABS: #Monocytes 0.6 10x3/uL (0.0-1.1); #Neutrophils 5.1 10x3/uL (1.5-8.4); %Basophils 0.2 % (0.0-2.0); %Lymphocytes 7.2 % (18.0-47.0); %Monocytes 9.3 % (0.0-10.0); %Neutrophils 82.2 % (40.0-75.0); Mean Corpuscular HGB CONC 31.3 g/dL (32.0-36.0); Mean Corpuscular Hemoglobin 25.6 pg (27.0-33.0); Mean Corpuscular Volume 81.6 fl (81.6-98.3); Mean Platelet Volume 8.6 fl (7.4-10.4); Platelet Count 343 10x3/uL (150-450); RBC Distribution Width 19.6 % (11.5-14.5); Red Blood Cell (RBC) Count 3.91 10x6/uL (3.90-5.03); White Blood Cell (WBC) Count 6.2 10x3/uL (3.5-10.5)
[2022-03-19 09:21] LABS: Anion Gap 15 mmol/L (10-20); BUN (Urea Nitrogen) 85 mg/dL (9.8-20.1); Calc. Creatinine Clearance 59 mL/min (70-130); Calcium 9.1 mg/dL (7.8-10.44); Carbon Dioxide 28 mmol/L (23-31); Chloride 107 mmol/L (98-107); Estimated GFR 31; Glucose 173 mg/dL (83-110); Potassium 4.5 mmol/L (3.5-5.1); Sodium 145 mmol/L (136-145)
[2022-03-19] MEDS: diphenhydrAMINE 30 GM TUBE TOP PRN (10:11)
[2022-03-19] MEDS: Hydrocortisone 1% Cream 30 GM TUBE TOP PRN (10:13)
[2022-03-20] MEDS: Apixaban 5 MG TAB PO SCH ×2 (09:55→20:49)
[2022-03-20] MEDS: Atorvastatin Calcium 40 MG TAB PO SCH (09:55)
[2022-03-20] MEDS: Pramipexole Di-HCl 1 MG TAB PO SCH ×3 (09:55→20:49)
[2022-03-20] MEDS: Carvedilol 3.125 MG TAB PO SCH ×2 (09:55→17:09)
[2022-03-20] MEDS: Pantoprazole 40 MG VIAL IVP SCH (09:56)
[2022-03-20] MEDS: methylPREDNISolone Sod Succ 40 MG VIAL IVP SCH (09:56)
[2022-03-20 10:22] LABS: Anion Gap 12 mmol/L (10-20); BUN (Urea Nitrogen) 64 mg/dL (9.8-20.1); Calc. Creatinine Clearance 78 mL/min (70-130); Calcium 8.9 mg/dL (7.8-10.44); Carbon Dioxide 31 mmol/L (23-31); Chloride 109 mmol/L (98-107); Estimated GFR 44; Glucose 131 mg/dL (83-110); Potassium 4.3 mmol/L (3.5-5.1); Sodium 148 mmol/L (136-145)
[2022-03-20 11:05] LABS: #Eosinphils 0.3 10x3/uL (0.0-0.5); #Monocytes 0.5 10x3/uL (0.0-1.1); #Neutrophils 6.5 10x3/uL (1.5-8.4); %Basophils 0.1 % (0.0-2.0); %Eosinophils 3.6 % (0.0-6.0); %Monocytes 6.3 % (0.0-10.0); %Neutrophils 80.7 % (40.0-75.0); Hemoglobin 9.9 g/dL (12.0-15.5); Mean Corpuscular HGB CONC 30.5 g/dL (32.0-36.0); Mean Corpuscular Hemoglobin 25.5 pg (27.0-33.0); Mean Corpuscular Volume 83.8 fl (81.6-98.3); Mean Platelet Volume 8.7 fl (7.4-10.4); Platelet Count 338 10x3/uL (150-450); RBC Distribution Width 20.2 % (11.5-14.5); Red Blood Cell (RBC) Count 3.88 10x6/uL (3.90-5.03)
[2022-03-20] MEDS: HumaLOG 300 UNITS/3 ML VIAL SC PRN ×2 (17:09→20:51)
[2022-03-21] MEDS: diphenhydrAMINE 30 GM TUBE TOP PRN (06:51)
[2022-03-21] MEDS: Hydrocortisone 1% Cream 30 GM TUBE TOP PRN (06:52)
[2022-03-21] MEDS: Apixaban 5 MG TAB PO SCH ×2 (09:59→20:30)
[2022-03-21] MEDS: Carvedilol 3.125 MG TAB PO SCH ×2 (09:59→17:37)
[2022-03-21] MEDS: Atorvastatin Calcium 40 MG TAB PO SCH (09:59)
[2022-03-21] MEDS: Pantoprazole 40 MG VIAL IVP SCH (10:00)
[2022-03-21] MEDS: methylPREDNISolone Sod Succ 40 MG VIAL IVP SCH (10:00)
[2022-03-21] MEDS: Pramipexole Di-HCl 1 MG TAB PO SCH ×3 (10:00→20:30)
[2022-03-21 10:54] LABS: Anion Gap 10 mmol/L (10-20); BUN (Urea Nitrogen) 47 mg/dL (9.8-20.1); Calc. Creatinine Clearance 94 mL/min (70-130); Calcium 8.8 mg/dL (7.8-10.44); Carbon Dioxide 31 mmol/L (23-31); Chloride 108 mmol/L (98-107); Estimated GFR 55; Glucose 108 mg/dL (83-110); Potassium 4.4 mmol/L (3.5-5.1); Sodium 145 mmol/L (136-145)
[2022-03-21] MEDS: HumaLOG 300 UNITS/3 ML VIAL SC PRN ×2 (17:38→20:56)
[2022-03-22 09:40] LABS: Anion Gap 11 mmol/L (10-20); BUN (Urea Nitrogen) 33 mg/dL (9.8-20.1); Calc. Creatinine Clearance 113 mL/min (70-130); Calcium 8.9 mg/dL (7.8-10.44); Carbon Dioxide 30 mmol/L (23-31); Chloride 107 mmol/L (98-107); Estimated GFR 68; Glucose 126 mg/dL (83-110); Potassium 4.2 mmol/L (3.5-5.1); Sodium 144 mmol/L (136-145)
[2022-03-22] MEDS: Pramipexole Di-HCl 1 MG TAB PO SCH ×3 (10:37→20:30)
[2022-03-22] MEDS: Atorvastatin Calcium 40 MG TAB PO SCH (10:37)
[2022-03-22] MEDS: Carvedilol 6.25 MG TAB PO SCH ×2 (10:38→16:14)
[2022-03-22] MEDS: Apixaban 5 MG TAB PO SCH ×2 (10:38→20:30)
[2022-03-22] MEDS: methylPREDNISolone Sod Succ 40 MG VIAL IVP SCH (10:38)
[2022-03-22] MEDS: Carvedilol 3.125 MG TAB PO SCH (10:42)
[2022-03-22] MEDS: HumaLOG 300 UNITS/3 ML VIAL SC PRN ×2 (16:15→20:51)
[2022-03-23] MEDS: Carvedilol 6.25 MG TAB PO SCH ×2 (08:54→17:23)
[2022-03-23] MEDS: Apixaban 5 MG TAB PO SCH ×2 (08:55→21:59)
[2022-03-23] MEDS: methylPREDNISolone Sod Succ 40 MG VIAL IVP SCH (08:55)
[2022-03-23] MEDS: Atorvastatin Calcium 40 MG TAB PO SCH (08:55)
[2022-03-23] MEDS: Pramipexole Di-HCl 1 MG TAB PO SCH ×3 (08:55→21:59)
[2022-03-23] MEDS: HumaLOG 300 UNITS/3 ML VIAL SC PRN ×3 (12:34→21:59)
[2022-03-24] MEDS: Carvedilol 6.25 MG TAB PO SCH ×2 (08:17→16:52)
[2022-03-24] MEDS: Pramipexole Di-HCl 1 MG TAB PO SCH ×3 (08:17→21:16)
[2022-03-24] MEDS: Atorvastatin Calcium 40 MG TAB PO SCH (08:17)
[2022-03-24] MEDS: Apixaban 5 MG TAB PO SCH ×2 (08:17→21:16)
[2022-03-24] MEDS: HumaLOG 300 UNITS/3 ML VIAL SC PRN ×2 (16:40→21:17)
[2022-03-25] MEDS: Pramipexole Di-HCl 1 MG TAB PO SCH ×2 (08:15→15:52)
[2022-03-25] MEDS: Apixaban 5 MG TAB PO SCH (08:15)
[2022-03-25] MEDS: Atorvastatin Calcium 40 MG TAB PO SCH (08:15)
[2022-03-25] MEDS: Carvedilol 6.25 MG TAB PO SCH (08:15)
[2022-03-25] MEDS ORDERED: Ondansetron PF 4 MG/2 ML Vial IVP PRN (10:48)
[2022-03-25] MEDS: HumaLOG 300 UNITS/3 ML VIAL SC PRN (12:09)
[2022-03-25 16:52] VITALS: BP 114/65; TEMP 99.2
== END 2022-03-25 16:52 | DRG 871 ==
LOC: CSHERS 03:11 → CSHIMCU 06:19 → CSHTELE 03-20 07:32
PROVIDERS: ADMIT Family Medicine; ATTEND Internal Medicine
PROC: 02HV33Z Insertion of Infusion Device into Superior Vena Cava, Percutaneous Approach (ICD-10-PCS; principal; 2022-03-10)
PROC: B548ZZA Ultrasonography of Superior Vena Cava, Guidance (ICD-10-PCS; 2022-03-10)
PROC: 3E043XZ Introduction of Vasopressor into Central Vein, Percutaneous Approach (ICD-10-PCS; 2022-03-10)
PROC: 5A09357 Assistance with Respiratory Ventilation, Less than 24 Consecutive Hours, Continuous Positive Airway Pressure (ICD-10-PCS; 2022-03-10)
PROC: 4A023N7 Measurement of Cardiac Sampling and Pressure, Left Heart, Percutaneous Approach (ICD-10-PCS; 2022-03-10)
PROC: B2111ZZ Fluoroscopy of Multiple Coronary Arteries using Low Osmolar Contrast (ICD-10-PCS; 2022-03-10)
PROC: B2151ZZ Fluoroscopy of Left Heart using Low Osmolar Contrast (ICD-10-PCS; 2022-03-10)
PROC: 3E03329 Introduction of Other Anti-infective into Peripheral Vein, Percutaneous Approach (ICD-10-PCS; 2022-03-10)
PROC: 5A09357 Assistance with Respiratory Ventilation, Less than 24 Consecutive Hours, Continuous Positive Airway Pressure (ICD-10-PCS; 2022-03-13)
DX: A40.3 Sepsis due to Streptococcus pneumoniae (principal); I21.4 Non-ST elevation (NSTEMI) myocardial infarction; J96.01 Acute respiratory failure with hypoxia; R65.21 Severe sepsis with septic shock; J15.4 Pneumonia due to other streptococci; I50.21 Acute systolic (congestive) heart failure; I42.9 Cardiomyopathy, unspecified; N17.9 Acute kidney failure, unspecified; I13.0 Hypertensive heart and chronic kidney disease with heart failure and stage 1 through stage 4 chronic kidney disease, or unspecified chronic kidney disease; N18.5 Chronic kidney disease, stage 5; E87.1 Hypo-osmolality and hyponatremia; G93.40 Encephalopathy, unspecified; I48.92 Unspecified atrial flutter; E78.5 Hyperlipidemia, unspecified; G24.3 Spasmodic torticollis; C50.911 Malignant neoplasm of unspecified site of right female breast; E66.9 Obesity, unspecified; E89.0 Postprocedural hypothyroidism; Z96.1 Presence of intraocular lens; R59.9 Enlarged lymph nodes, unspecified; E11.22 Type 2 diabetes mellitus with diabetic chronic kidney disease; D63.1 Anemia in chronic kidney disease; L30.9 Dermatitis, unspecified; L27.0 Generalized skin eruption due to drugs and medicaments taken internally; T50.1X5A Adverse effect of loop [high-ceiling] diuretics, initial encounter; E87.5 Hyperkalemia; I48.0 Paroxysmal atrial fibrillation; R41.0 Disorientation, unspecified; I35.0 Nonrheumatic aortic (valve) stenosis; Z20.822 Contact with and (suspected) exposure to COVID-19; Z88.8 Allergy status to other drugs, medicaments and biological substances; Z91.018 Allergy to other foods; Z79.4 Long term (current) use of insulin; Z98.51 Tubal ligation status; Z98.49 Cataract extraction status, unspecified eye; Z68.41 Body mass index [BMI] 40.0-44.9, adult; Z92.3 Personal history of irradiation; Z79.899 Other long term (current) drug therapy; Z98.890 Other specified postprocedural states
CPT/HCPCS: 36415; 36416; 36600; 51702; 71045; 76705; 76770; 80048; 80053; 81001; 82553; 82570; 82805; 82947; 83605; 83735; 83880; 84100; 84145; 84156; 84484; 85025; 85610; 85730; 87040; 87077; 87086; 87149; 87186; 93005; 93010; 93306; 93458; 94640; 94660; 94760; 96365; 96366; 96367; 96368; 96375; 97139; 99152; 99292; C1769; C1894; C9113; J0153; J0583; J0692; J1160; J1200; J1250; J1644; J1650; J1815; J1885; J1940; J1956; J2060; J2250; J2270; J2405; J2920; J2930; J3010; J3370; J3475; J3486; J3490; J7050; J7120; J7611; J7620; P9047; Q9967; U0002; U0003; U0005

== ENCOUNTER 2022-05-05 10:22 | Outpatient (CLI) | payer MEDICARE | END 2022-05-05 10:23 | disposition home or self-care (01) | LOC: CSHWCC 10:22 | PROVIDERS: ATTEND Preventive Medicine Undersea and Hyperbaric Medicine | DX: I87.332 Chronic venous hypertension (idiopathic) with ulcer and inflammation of left lower extremity (principal); I87.311 Chronic venous hypertension (idiopathic) with ulcer of right lower extremity; L97.822 Non-pressure chronic ulcer of other part of left lower leg with fat layer exposed; L97.812 Non-pressure chronic ulcer of other part of right lower leg with fat layer exposed; R60.0 Localized edema | CPT/HCPCS: 29581 ==

== ENCOUNTER 2022-05-13 12:03 | Emergency (ER) | payer MEDICARE ==
[2022-05-13] MEDS ORDERED: Ondansetron PF 4 MG/2 ML Vial ONE (13:18)
[2022-05-13 13:25] LABS: #Eosinphils 0.7 10x3/uL (0.0-0.5); #Monocytes 0.6 10x3/uL (0.0-1.1); %Basophils 0.6 % (0.0-2.0); %Monocytes 8.8 % (0.0-10.0); %Neutrophils 70.3 % (40.0-75.0); Hemoglobin 9.7 g/dL (12.0-15.5); Mean Corpuscular Hemoglobin 25.9 pg (27.0-33.0); Mean Platelet Volume 9.2 fl (7.4-10.4); Platelet Count 314 10x3/uL (150-450); RBC Distribution Width 18.8 % (11.5-14.5); Red Blood Cell (RBC) Count 3.74 10x6/uL (3.90-5.03); White Blood Cell (WBC) Count 7.1 10x3/uL (3.5-10.5)
[2022-05-13 13:50] LABS: ALT (SGPT) 16 U/L (8-55); AST (SGOT) 24 U/L (5-34); Albumin 3.4 g/dL (3.4-4.8); Alkaline Phosphatase 140 U/L (40-110); Anion Gap 15 mmol/L (10-20); BUN (Urea Nitrogen) 22 mg/dL (9.8-20.1); Calc. Creatinine Clearance 0 mL/min (70-130); Calcium 8.3 mg/dL (7.8-10.44); Carbon Dioxide 22 mmol/L (23-31); Chloride 103 mmol/L (98-107); Estimated GFR 50; Globulin 3.7 g/dL (2.4-3.5); Glucose 119 mg/dL (83-110); Lipase 6 U/L (8-78); Potassium 3.7 mmol/L (3.5-5.1); Protein, Total 7.1 g/dL (5.8-8.1); Sodium 136 mmol/L (136-145)
[2022-05-13 16:58] LABS: Bilirubin Neg (Negative); Blood, Urine 10 (Negative); Clarity Clear (Clear); Glucose, Urine (Dipstick) Normal (Negative); Ketone, Urine Negative (Negative); Leukocyte 100 (Negative); Nitrite Negative (Negative); Protein, Urine (Dipstick) 15 mg/dl (Neg-Trace); Specific Gravity, Urine 1.015 (1.005-1.030); Urobilinogen Normal mg/dL (Less than 2)
[2022-05-13 17:08] LABS: RBC/HPF 0-3 HPF (0-3); Squamous Epithelial 0-3 HPF (0-3)
[2022-05-13 17:09] LABS: Yeast-Hyphae Rare HPF (None Seen)
[2022-05-13 17:10] LABS: Bacteria/HPF Rare-Few HPF (None Seen)
[2022-05-13] MEDS ORDERED: cefTRIAXone\\ROCEPHIN 2 GM VIAL ONE (17:23)
== END 2022-05-13 17:56 | disposition home or self-care (01) ==
LOC: CSHERS 12:03
DX: N39.0 Urinary tract infection, site not specified (principal); D64.9 Anemia, unspecified; N17.9 Acute kidney failure, unspecified; R11.2 Nausea with vomiting, unspecified; E11.9 Type 2 diabetes mellitus without complications; E78.5 Hyperlipidemia, unspecified; I12.9 Hypertensive chronic kidney disease with stage 1 through stage 4 chronic kidney disease, or unspecified chronic kidney disease; N18.9 Chronic kidney disease, unspecified; I48.91 Unspecified atrial fibrillation
CPT/HCPCS: 74176; 80053; 81003; 81015; 83605; 83690; 84484; 85025; 87086; 93005; 96361; 96365; 96375; J0696; J2405

== ENCOUNTER 2022-05-19 09:46 | Outpatient (CLI) | payer MEDICARE | END 2022-05-19 09:47 | disposition home or self-care (01) | LOC: CSHWCC 09:46 | PROVIDERS: ATTEND Preventive Medicine Undersea and Hyperbaric Medicine | DX: I87.332 Chronic venous hypertension (idiopathic) with ulcer and inflammation of left lower extremity (principal); I87.311 Chronic venous hypertension (idiopathic) with ulcer of right lower extremity; L97.822 Non-pressure chronic ulcer of other part of left lower leg with fat layer exposed; L97.812 Non-pressure chronic ulcer of other part of right lower leg with fat layer exposed ==

== ENCOUNTER 2022-05-27 09:02 | Inpatient (IN) | payer MEDICARE ==
[2022-05-27] MEDS ORDERED: cefTRIAXone\\ROCEPHIN 2 GM VIAL ONE (10:48)
[2022-05-27 11:32] LABS: #Eosinphils 0.1 10x3/uL (0.0-0.5); #Monocytes 0.5 10x3/uL (0.0-1.1); #Neutrophils 9.3 10x3/uL (1.5-8.4); %Basophils 0.3 % (0.0-2.0); %Eosinophils 0.5 % (0.0-6.0); %Lymphocytes 4.4 % (18.0-47.0); %Neutrophils 89.3 % (40.0-75.0); Hemoglobin 8.4 g/dL (12.0-15.5); Mean Corpuscular HGB CONC 31.5 g/dL (32.0-36.0); Mean Corpuscular Hemoglobin 25.8 pg (27.0-33.0); Mean Corpuscular Volume 81.9 fl (81.6-98.3); Platelet Count 292 10x3/uL (150-450); RBC Distribution Width 19.2 % (11.5-14.5); Red Blood Cell (RBC) Count 3.26 10x6/uL (3.90-5.03); White Blood Cell (WBC) Count 10.4 10x3/uL (3.5-10.5)
[2022-05-27 11:51] LABS: ALT (SGPT) 24 U/L (8-55); AST (SGOT) 25 U/L (5-34); Albumin 3.1 g/dL (3.4-4.8); Alkaline Phosphatase 191 U/L (40-110); Anion Gap 14 mmol/L (10-20); BUN (Urea Nitrogen) 14 mg/dL (9.8-20.1); Bilirubin, Total 1.2 mg/dL (0.2-1.2); CK (CPK) 24 U/L (29-168); Calc. Creatinine Clearance 0 mL/min (70-130); Calcium 8.7 mg/dL (7.8-10.44); Carbon Dioxide 25 mmol/L (23-31); Chloride 100 mmol/L (98-107); Estimated GFR 54; Globulin 3.9 g/dL (2.4-3.5); Glucose 162 mg/dL (83-110); Potassium 3.7 mmol/L (3.5-5.1); Sodium 135 mmol/L (136-145)
[2022-05-27] MEDS ORDERED: Metolazone 5 MG TAB PO SCH (12:00)
[2022-05-27] MEDS ORDERED: Ondansetron PF 4 MG/2 ML Vial IVP PRN (12:43)
[2022-05-27] MEDS ORDERED: Ondansetron ODT 4 MG TAB PO PRN (12:43)
[2022-05-27 12:44] LABS: Bilirubin Neg (Negative); Blood, Urine Negative (Negative); Clarity Sl. Cloudy (Clear); Glucose, Urine (Dipstick) Normal (Negative); Ketone, Urine Negative (Negative); Leukocyte 25 (Negative); Nitrite Negative (Negative); Protein, Urine (Dipstick) 30 mg/dl (Neg-Trace); Urobilinogen Normal mg/dL (Less than 2)
[2022-05-27 13:07] LABS: RBC/HPF 0-3 HPF (0-3)
[2022-05-27 13:08] LABS: Bacteria/HPF 2+ HPF (None Seen); Mucous/LPF 3+ LPF (<2+)
[2022-05-27 13:09] LABS: White Blood Cell Cast 0-3 LPF (None Seen)
[2022-05-27 20:20] VITALS: BMI 51.5
[2022-05-27] MEDS ORDERED: Vancomycin 1 GM in Premix Bag 1 BAG IVPB SCH (21:00)
[2022-05-27] MEDS ORDERED: Apixaban 5 MG TAB PO SCH (22:30)
[2022-05-27] MEDS: Acetaminophen 325 MG TAB PO PRN (22:52)
[2022-05-27] MEDS: Hydrocortisone 1% Cream 30 GM TUBE TOP PRN (22:52)
[2022-05-28 06:04] LABS: #Eosinphils 0.2 10x3/uL (0.0-0.5); #Monocytes 0.6 10x3/uL (0.0-1.1); %Basophils 0.3 % (0.0-2.0); %Eosinophils 2.6 % (0.0-6.0); %Lymphocytes 4.4 % (18.0-47.0); %Monocytes 6.8 % (0.0-10.0); %Neutrophils 85.6 % (40.0-75.0); Hemoglobin 7.8 g/dL (12.0-15.5); Mean Corpuscular HGB CONC 32.4 g/dL (32.0-36.0); Mean Corpuscular Volume 80.3 fl (81.6-98.3); Mean Platelet Volume 8.8 fl (7.4-10.4); Platelet Count 258 10x3/uL (150-450); RBC Distribution Width 19.2 % (11.5-14.5); White Blood Cell (WBC) Count 9.3 10x3/uL (3.5-10.5)
[2022-05-28 06:05] LABS: Anion Gap 17 mmol/L (10-20); BUN (Urea Nitrogen) 15 mg/dL (9.8-20.1); Calc. Creatinine Clearance 116 mL/min (70-130); Calcium 8.5 mg/dL (7.8-10.44); Carbon Dioxide 23 mmol/L (23-31); Chloride 101 mmol/L (98-107); Estimated GFR 59; Glucose 117 mg/dL (83-110); Potassium 3.6 mmol/L (3.5-5.1); Sodium 137 mmol/L (136-145)
[2022-05-28] MEDS: Apixaban 5 MG TAB PO SCH ×2 (09:39→20:24)
[2022-05-28] MEDS: Carvedilol 6.25 MG TAB PO SCH ×2 (09:39→16:17)
[2022-05-28] MEDS: Atorvastatin Calcium 40 MG TAB PO SCH (09:40)
[2022-05-28] MEDS: Pramipexole Di-HCl 1 MG TAB PO SCH ×3 (09:40→20:24)
[2022-05-28] MEDS ORDERED: VANCOMYCIN 1.75 GM/350 ML BAG 1.75 GM in Premix Bag 1 BAG IVPB SCH (12:00)
[2022-05-28] MEDS: Hydrocortisone 1% Cream 30 GM TUBE TOP PRN (22:38)
[2022-05-28] MEDS: Acetaminophen 325 MG TAB PO PRN (23:48)
[2022-05-29 04:36] LABS: #Eosinphils 0.3 10x3/uL (0.0-0.5); #Monocytes 0.6 10x3/uL (0.0-1.1); #Neutrophils 6.3 10x3/uL (1.5-8.4); %Basophils 0.4 % (0.0-2.0); %Eosinophils 4.4 % (0.0-6.0); %Lymphocytes 7.1 % (18.0-47.0); %Monocytes 7.1 % (0.0-10.0); %Neutrophils 80.7 % (40.0-75.0); Hemoglobin 8.2 g/dL (12.0-15.5); Mean Corpuscular HGB CONC 31.2 g/dL (32.0-36.0); Mean Corpuscular Hemoglobin 25.5 pg (27.0-33.0); Mean Corpuscular Volume 81.7 fl (81.6-98.3); Platelet Count 300 10x3/uL (150-450); RBC Distribution Width 18.8 % (11.5-14.5); Red Blood Cell (RBC) Count 3.22 10x6/uL (3.90-5.03); White Blood Cell (WBC) Count 7.7 10x3/uL (3.5-10.5)
[2022-05-29 04:45] LABS: Anion Gap 15 mmol/L (10-20); BUN (Urea Nitrogen) 15 mg/dL (9.8-20.1); Calc. Creatinine Clearance 119 mL/min (70-130); Carbon Dioxide 27 mmol/L (23-31); Chloride 97 mmol/L (98-107); Estimated GFR 61; Glucose 125 mg/dL (83-110); Potassium 3.5 mmol/L (3.5-5.1); Sodium 135 mmol/L (136-145)
[2022-05-29] MEDS ORDERED: Metolazone 2.5 MG TAB PO SCH (09:00)
[2022-05-29] MEDS: Pramipexole Di-HCl 1 MG TAB PO SCH (09:37)
[2022-05-29] MEDS: Carvedilol 6.25 MG TAB PO SCH (09:38)
[2022-05-29] MEDS: Atorvastatin Calcium 40 MG TAB PO SCH (09:38)
[2022-05-29] MEDS: Apixaban 5 MG TAB PO SCH (09:38)
[2022-05-29] MEDS: Albuterol Sulfate 2.5 mg/3 ml Neb NEB SCH ×2 (09:49→14:19)
[2022-05-29 11:22] LABS: Vancomycin, Trough 17.6 ug/mL
[2022-05-29] MEDS ORDERED: Vancomycin 1.5 GRAM/300 ML BAG 1.5 GM in Premix Bag 1 BAG IVPB SCH (12:00)
[2022-05-29] MEDS ORDERED: Doxycycline 100 MG CAP PO SCH (14:30)
[2022-05-29] MEDS ORDERED: Ciprofloxacin 500 MG TAB PO SCH (14:30)
[2022-05-30] MEDS ORDERED: Ciprofloxacin 500 MG TAB PO SCH (06:00)
[2022-05-30] MEDS ORDERED: Doxycycline 100 MG CAP PO SCH (09:00)
[2022-05-31 10:50] VITALS: BP 105/67; TEMP 97.5
== END 2022-05-29 17:50 | disposition home or self-care (01) | DRG 602 ==
LOC: CSHERS 09:02 → CSHTELE 17:50
PROVIDERS: ADMIT Student in an Organized Health Care Education/Training Program; ATTEND Family Medicine
DX: L03.116 Cellulitis of left lower limb (principal); I50.33 Acute on chronic diastolic (congestive) heart failure; I13.0 Hypertensive heart and chronic kidney disease with heart failure and stage 1 through stage 4 chronic kidney disease, or unspecified chronic kidney disease; I48.19 Other persistent atrial fibrillation; Z68.43 Body mass index [BMI] 50.0-59.9, adult; E11.9 Type 2 diabetes mellitus without complications; E66.9 Obesity, unspecified; E78.5 Hyperlipidemia, unspecified; N18.9 Chronic kidney disease, unspecified; E66.01 Morbid (severe) obesity due to excess calories; I87.2 Venous insufficiency (chronic) (peripheral); Z20.822 Contact with and (suspected) exposure to COVID-19; Z88.8 Allergy status to other drugs, medicaments and biological substances; Z88.1 Allergy status to other antibiotic agents; Z91.040 Latex allergy status; Z91.013 Allergy to seafood; Z85.3 Personal history of malignant neoplasm of breast; Z98.890 Other specified postprocedural states; Z98.51 Tubal ligation status
CPT/HCPCS: 36415; 71045; 80048; 80053; 80202; 81003; 81015; 82550; 83880; 85025; 87040; 87086; 93005; 94640; 94760; 96374; 96375; J0696; J3370; J7611; Q0162; U0003; U0005

== ENCOUNTER 2022-06-17 10:24 | Outpatient (CLI) | payer MEDICARE | END 2022-06-17 10:25 | disposition home or self-care (01) | LOC: CSHWCC 10:24 | PROVIDERS: ATTEND Nurse Practitioner Family | DX: I87.313 Chronic venous hypertension (idiopathic) with ulcer of bilateral lower extremity (principal); L97.212 Non-pressure chronic ulcer of right calf with fat layer exposed; L97.822 Non-pressure chronic ulcer of other part of left lower leg with fat layer exposed; R60.0 Localized edema ==

== ENCOUNTER 2022-07-26 09:57 | Outpatient (CLI) | payer MEDICARE | END 2022-07-26 09:58 | disposition home or self-care (01) | LOC: CSHWCC 09:57 | PROVIDERS: ATTEND Nurse Practitioner Family | DX: I87.331 Chronic venous hypertension (idiopathic) with ulcer and inflammation of right lower extremity (principal); I87.312 Chronic venous hypertension (idiopathic) with ulcer of left lower extremity; L97.811 Non-pressure chronic ulcer of other part of right lower leg limited to breakdown of skin; L97.822 Non-pressure chronic ulcer of other part of left lower leg with fat layer exposed; R60.0 Localized edema | CPT/HCPCS: 29581 ==

== ENCOUNTER 2022-07-29 08:18 | Outpatient (CLI) | payer MEDICARE | END 2022-07-29 08:19 | disposition home or self-care (01) | LOC: CSHWCC 08:18 | PROVIDERS: ATTEND Nurse Practitioner Family | DX: I87.312 Chronic venous hypertension (idiopathic) with ulcer of left lower extremity (principal); L97.822 Non-pressure chronic ulcer of other part of left lower leg with fat layer exposed; R60.0 Localized edema ==

== ENCOUNTER 2022-08-03 10:10 | Outpatient (CLI) | payer MEDICARE | END 2022-08-03 10:11 | disposition home or self-care (01) | LOC: CSHWCC 10:10 | PROVIDERS: ATTEND Nurse Practitioner Family | DX: I87.312 Chronic venous hypertension (idiopathic) with ulcer of left lower extremity (principal); L97.822 Non-pressure chronic ulcer of other part of left lower leg with fat layer exposed; R60.0 Localized edema ==

== ENCOUNTER 2022-08-03 15:18 | Emergency (ER) | payer MEDICARE ==
[2022-08-03 16:08] LABS: #Basophils 0.1 10x3/uL (0.0-0.2); #Eosinphils 0.1 10x3/uL (0.0-0.5); #Monocytes 0.3 10x3/uL (0.0-1.1); #Neutrophils 3.7 10x3/uL (1.5-8.4); %Basophils 1.3 % (0.0-2.0); %Eosinophils 3.1 % (0.0-6.0); %Lymphocytes 6.4 % (18.0-47.0); %Monocytes 6.8 % (0.0-10.0); %Neutrophils 82.2 % (40.0-75.0); Mean Corpuscular HGB CONC 32.3 g/dL (32.0-36.0); Mean Corpuscular Hemoglobin 25.9 pg (27.0-33.0); Mean Corpuscular Volume 80.3 fl (81.6-98.3); Mean Platelet Volume 8.9 fl (7.4-10.4); Platelet Count 199 10x3/uL (150-450); RBC Distribution Width 18.9 % (11.5-14.5); Red Blood Cell (RBC) Count 3.86 10x6/uL (3.90-5.03); White Blood Cell (WBC) Count 4.6 10x3/uL (3.5-10.5)
[2022-08-03 16:17] LABS: INR-International Normal Ratio 1.2; PTT 33.9 sec (22.0-33.0); Prothrombin Time 13.3 sec (9.5-12.1)
[2022-08-03 16:18] LABS: Albumin 3.1 g/dL (3.4-4.8); Alkaline Phosphatase 152 U/L (40-110); Anion Gap 12 mmol/L (10-20); BUN (Urea Nitrogen) 21 mg/dL (9.8-20.1); Bilirubin, Total 1.7 mg/dL (0.2-1.2); Calc. Creatinine Clearance 0 mL/min (70-130); Calcium 8.9 mg/dL (7.8-10.44); Carbon Dioxide 30 mmol/L (23-31); Chloride 95 mmol/L (98-107); Estimated GFR 67; Globulin 3.4 g/dL (2.4-3.5); Glucose 112 mg/dL (83-110); Potassium 3.4 mmol/L (3.5-5.1); Protein, Total 6.5 g/dL (5.8-8.1); Sodium 134 mmol/L (136-145)
[2022-08-03 16:19] LABS: ALT (SGPT) 19 U/L (8-55); AST (SGOT) 30 U/L (5-34); CK (CPK) 58 U/L (29-168)
[2022-08-03] MEDS ORDERED: methylPREDNISolone Sod Succ/PF 125 MG/2 ML VIAL ONE (17:15)
[2022-08-03] MEDS ORDERED: Fentanyl 100 MCG/2 ML VIAL ONE ×2 (17:16→19:51)
[2022-08-03] MEDS ORDERED: Famotidine/PF 20 mg/2ml Vial ONE (17:16)
[2022-08-03] MEDS ORDERED: diphenhydrAMINE 50 MG/ML VIAL ONE (17:16)
[2022-08-03 17:18] LABS: Bilirubin Neg (Negative); Blood, Urine 25 (Negative); Clarity Clear (Clear); Glucose, Urine (Dipstick) Normal (Negative); Ketone, Urine Negative (Negative); Leukocyte 25 (Negative); Nitrite Negative (Negative); Protein, Urine (Dipstick) 30 mg/dl (Neg-Trace); Urobilinogen Normal mg/dL (Less than 2); pH, Urine 6.5 (5.0-9.0)
[2022-08-03 17:24] LABS: Bacteria/HPF None Seen HPF (None Seen); RBC/HPF 0-3 HPF (0-3); WBC/HPF 0-3 HPF (0-3)
[2022-08-03 19:50] LABS: SARS-CoV-2 NAA Rapid Test Not Detected (NotDetected)
== END 2022-08-03 20:38 | disposition short-term general hospital (02) ==
LOC: CSHERS 15:18
DX: S82.252A Displaced comminuted fracture of shaft of left tibia, initial encounter for closed fracture (principal); E11.22 Type 2 diabetes mellitus with diabetic chronic kidney disease; I12.9 Hypertensive chronic kidney disease with stage 1 through stage 4 chronic kidney disease, or unspecified chronic kidney disease; N18.9 Chronic kidney disease, unspecified; E78.5 Hyperlipidemia, unspecified; W18.39XA Other fall on same level, initial encounter; Z20.822 Contact with and (suspected) exposure to COVID-19
CPT/HCPCS: 0240U; 70450; 71045; 72170; 73562; 73590; 73706; 80053; 82550; 83605; 84484; 85025; 85610; 85730; 93005; 29515; 81003; 81015; 96374; 96375; 96376; G0390; J1200; J2930; J3010; S0028

== ENCOUNTER 2022-08-18 06:06 | Inpatient (IN) | payer MEDICARE ==
[2022-08-18] MEDS: Sodium Chloride 0.9% 1,000 ML IV SCH ×2 (06:39→08:41)
[2022-08-18] MEDS ORDERED: Ondansetron ODT 4 MG TAB PO PRN (08:15)
[2022-08-18] MEDS ORDERED: Ondansetron PF 4 MG/2 ML Vial IVP PRN (08:15)
[2022-08-18] MEDS ORDERED: Dextrose 5% in Water 1,000 ML IV PRN (08:17)
[2022-08-18] MEDS ORDERED: HumaLOG 300 UNITS/3 ML VIAL SC PRN ×2 (08:17)
[2022-08-18] MEDS ORDERED: Dextrose 50% Abboject 50 ML SYRINGE SLOW IVP PRN (08:17)
[2022-08-18] MEDS ORDERED: Hydrocortisone 1% Cream 30 GM TUBE TOP PRN (08:47)
[2022-08-18 09:00] LABS: #Eosinphils 0.2 10x3/uL (0.0-0.5); #Monocytes 0.4 10x3/uL (0.0-1.1); #Neutrophils 2.7 10x3/uL (1.5-8.4); %Basophils 0.8 % (0.0-2.0); %Eosinophils 5.3 % (0.0-6.0); %Lymphocytes 10.6 % (18.0-47.0); %Monocytes 11.4 % (0.0-10.0); %Neutrophils 71.6 % (40.0-75.0); Hemoglobin 10.2 g/dL (12.0-15.5); Mean Corpuscular HGB CONC 34.7 g/dL (32.0-36.0); Mean Platelet Volume 8.9 fl (7.4-10.4); Platelet Count 199 10x3/uL (150-450); RBC Distribution Width 19.1 % (11.5-14.5); Red Blood Cell (RBC) Count 3.92 10x6/uL (3.90-5.03); White Blood Cell (WBC) Count 3.8 10x3/uL (3.5-10.5)
[2022-08-18 09:23] LABS: Anion Gap 12 mmol/L (10-20); BUN (Urea Nitrogen) 7 mg/dL (9.8-20.1); Calc. Creatinine Clearance 149 mL/min (70-130); Calcium 8.7 mg/dL (7.8-10.44); Carbon Dioxide 29 mmol/L (23-31); Chloride 82 mmol/L (98-107); Estimated GFR 89; Glucose 85 mg/dL (83-110); Potassium 3.3 mmol/L (3.5-5.1); Sodium 120 mmol/L (136-145)
[2022-08-18 09:35] LABS: Magnesium 1.2 mg/dL (1.6-2.6)
[2022-08-18] MEDS: Apixaban 5 MG TAB PO SCH ×2 (09:57→21:00)
[2022-08-18] MEDS: Atorvastatin Calcium 40 MG TAB PO SCH (09:57)
[2022-08-18] MEDS: Sodium Chloride 1 GM TAB PO SCH ×3 (09:57→21:01)
[2022-08-18] MEDS: Metolazone 2.5 MG TAB PO SCH ×2 (09:57→10:09)
[2022-08-18] MEDS ORDERED: Magnesium 2 GM/50 ML(in water) 2 GM in Premix Bag 1 BAG IVPB SCH (10:00)
[2022-08-18] MEDS ORDERED: Potassium Chloride 20 MEQ TAB PO SCH (12:00)
[2022-08-18] MEDS: Carvedilol 6.25 MG TAB PO SCH (17:47)
[2022-08-18] MEDS: Acetaminophen 500 MG TAB PO PRN (18:35)
[2022-08-18] MEDS: guaiFENesin/Codeine Phosphate 100 mg/10 mg 5 ml UD Cup PO PRN (21:11)
[2022-08-19] MEDS: Hydrocortisone 1% Cream 30 GM TUBE TOP PRN (02:55)
[2022-08-19] MEDS: Acetaminophen 500 MG TAB PO PRN (03:02)
[2022-08-19] MEDS: Sodium Chloride 0.9% 1,000 ML IV SCH ×2 (03:06→04:48)
[2022-08-19 06:20] LABS: #Basophils 0.1 10x3/uL (0.0-0.2); #Eosinphils 0.2 10x3/uL (0.0-0.5); #Monocytes 0.4 10x3/uL (0.0-1.1); #Neutrophils 2.2 10x3/uL (1.5-8.4); %Basophils 1.6 % (0.0-2.0); %Eosinophils 5.6 % (0.0-6.0); %Lymphocytes 11.6 % (18.0-47.0); %Monocytes 11.3 % (0.0-10.0); %Neutrophils 69.6 % (40.0-75.0); Hemoglobin 9.7 g/dL (12.0-15.5); Mean Corpuscular HGB CONC 33.8 g/dL (32.0-36.0); Mean Corpuscular Volume 76.9 fl (81.6-98.3); Mean Platelet Volume 8.8 fl (7.4-10.4); Platelet Count 186 10x3/uL (150-450); Red Blood Cell (RBC) Count 3.73 10x6/uL (3.90-5.03); White Blood Cell (WBC) Count 3.2 10x3/uL (3.5-10.5)
[2022-08-19] MEDS: guaiFENesin/Codeine Phosphate 100 mg/10 mg 5 ml UD Cup PO PRN ×2 (06:34→22:11)
[2022-08-19 06:40] LABS: Anion Gap 12 mmol/L (10-20); BUN (Urea Nitrogen) 7 mg/dL (9.8-20.1); Calc. Creatinine Clearance 143 mL/min (70-130); Calcium 8.4 mg/dL (7.8-10.44); Carbon Dioxide 30 mmol/L (23-31); Chloride 86 mmol/L (98-107); Estimated GFR 85; Glucose 80 mg/dL (83-110); Potassium 3.6 mmol/L (3.5-5.1); Sodium 124 mmol/L (136-145)
[2022-08-19] MEDS: Carvedilol 6.25 MG TAB PO SCH ×2 (08:36→18:04)
[2022-08-19] MEDS: Apixaban 5 MG TAB PO SCH ×2 (08:36→21:00)
[2022-08-19] MEDS: Sodium Chloride 1 GM TAB PO SCH ×3 (08:36→21:00)
[2022-08-19] MEDS: Atorvastatin Calcium 40 MG TAB PO SCH (08:36)
[2022-08-19] MEDS ORDERED: Pramipexole Di-HCl 0.25 MG TAB PO SCH (10:30)
[2022-08-19 12:37] LABS: SARS-CoV-2 NAA Rapid Test Not Detected (NotDetected)
[2022-08-19 14:36] LABS: Sodium 123 mmol/L (136-145)
[2022-08-19] MEDS: Pramipexole Di-HCl 0.25 MG TAB PO SCH (21:00)
[2022-08-20] MEDS: Ipratropium/Albuterol 3 ML NEB NEB PRN (01:34)
[2022-08-20 06:18] LABS: #Basophils 0.1 10x3/uL (0.0-0.2); #Eosinphils 0.2 10x3/uL (0.0-0.5); #Monocytes 0.4 10x3/uL (0.0-1.1); #Neutrophils 1.9 10x3/uL (1.5-8.4); %Basophils 1.7 % (0.0-2.0); %Eosinophils 7.2 % (0.0-6.0); %Lymphocytes 13.4 % (18.0-47.0); %Monocytes 12.3 % (0.0-10.0); %Neutrophils 65.1 % (40.0-75.0); Hemoglobin 9.8 g/dL (12.0-15.5); Mean Corpuscular HGB CONC 33.4 g/dL (32.0-36.0); Mean Corpuscular Hemoglobin 26.1 pg (27.0-33.0); Mean Corpuscular Volume 78.1 fl (81.6-98.3); Platelet Count 179 10x3/uL (150-450); RBC Distribution Width 19.2 % (11.5-14.5); Red Blood Cell (RBC) Count 3.75 10x6/uL (3.90-5.03); White Blood Cell (WBC) Count 2.9 10x3/uL (3.5-10.5)
[2022-08-20 06:24] LABS: Anion Gap 13 mmol/L (10-20); BUN (Urea Nitrogen) 7 mg/dL (9.8-20.1); Calc. Creatinine Clearance 143 mL/min (70-130); Calcium 8.7 mg/dL (7.8-10.44); Carbon Dioxide 30 mmol/L (23-31); Chloride 87 mmol/L (98-107); Estimated GFR 85; Glucose 82 mg/dL (83-110); Potassium 3.5 mmol/L (3.5-5.1); Sodium 126 mmol/L (136-145)
[2022-08-20] MEDS: Carvedilol 6.25 MG TAB PO SCH ×2 (08:51→17:53)
[2022-08-20] MEDS: Atorvastatin Calcium 40 MG TAB PO SCH (08:51)
[2022-08-20] MEDS: Metolazone 2.5 MG TAB PO SCH (08:51)
[2022-08-20] MEDS: Apixaban 5 MG TAB PO SCH ×2 (08:51→21:50)
[2022-08-20] MEDS: Pramipexole Di-HCl 0.25 MG TAB PO SCH ×2 (08:52→21:50)
[2022-08-20] MEDS: Sodium Chloride 1 GM TAB PO SCH ×3 (08:54→21:50)
[2022-08-21 05:01] LABS: Anion Gap 10 mmol/L (10-20); BUN (Urea Nitrogen) 8 mg/dL (9.8-20.1); Calc. Creatinine Clearance 143 mL/min (70-130); Calcium 8.6 mg/dL (7.8-10.44); Carbon Dioxide 30 mmol/L (23-31); Chloride 89 mmol/L (98-107); Estimated GFR 85; Glucose 90 mg/dL (83-110); Potassium 3.4 mmol/L (3.5-5.1); Sodium 126 mmol/L (136-145)
[2022-08-21 05:05] LABS: #Basophils 0.1 10x3/uL (0.0-0.2); #Eosinphils 0.2 10x3/uL (0.0-0.5); #Monocytes 0.3 10x3/uL (0.0-1.1); #Neutrophils 1.7 10x3/uL (1.5-8.4); %Basophils 1.9 % (0.0-2.0); %Eosinophils 6.1 % (0.0-6.0); %Neutrophils 65.6 % (40.0-75.0); Hemoglobin 9.3 g/dL (12.0-15.5); Mean Corpuscular HGB CONC 33.2 g/dL (32.0-36.0); Mean Corpuscular Hemoglobin 25.8 pg (27.0-33.0); Mean Corpuscular Volume 77.8 fl (81.6-98.3); Mean Platelet Volume 8.8 fl (7.4-10.4); Platelet Count 162 10x3/uL (150-450); RBC Distribution Width 19.4 % (11.5-14.5); White Blood Cell (WBC) Count 2.6 10x3/uL (3.5-10.5)
[2022-08-21] MEDS: Acetaminophen 500 MG TAB PO PRN (06:19)
[2022-08-21] MEDS: Hydrocortisone 1% Cream 30 GM TUBE TOP PRN (06:19)
[2022-08-21] MEDS: Metolazone 2.5 MG TAB PO SCH (08:47)
[2022-08-21] MEDS: Pramipexole Di-HCl 0.25 MG TAB PO SCH ×2 (08:47→20:23)
[2022-08-21] MEDS: Atorvastatin Calcium 40 MG TAB PO SCH (08:47)
[2022-08-21] MEDS: Carvedilol 6.25 MG TAB PO SCH ×2 (08:48→16:46)
[2022-08-21] MEDS: Apixaban 5 MG TAB PO SCH ×2 (08:48→20:23)
[2022-08-21] MEDS: Sodium Chloride 1 GM TAB PO SCH ×3 (08:49→20:23)
[2022-08-21] MEDS ORDERED: Potassium Chloride 20 MEQ TAB PO SCH (09:00)
[2022-08-21] MEDS: guaiFENesin/Codeine Phosphate 100 mg/10 mg 5 ml UD Cup PO PRN (23:56)
[2022-08-22 05:49] LABS: #Basophils 0.1 10x3/uL (0.0-0.2); #Eosinphils 0.2 10x3/uL (0.0-0.5); #Monocytes 0.3 10x3/uL (0.0-1.1); #Neutrophils 1.9 10x3/uL (1.5-8.4); %Basophils 1.7 % (0.0-2.0); %Eosinophils 6.8 % (0.0-6.0); %Monocytes 11.3 % (0.0-10.0); %Neutrophils 64.9 % (40.0-75.0); Hemoglobin 9.7 g/dL (12.0-15.5); Mean Corpuscular HGB CONC 32.9 g/dL (32.0-36.0); Mean Corpuscular Hemoglobin 25.7 pg (27.0-33.0); Mean Platelet Volume 9.5 fl (7.4-10.4); Platelet Count 158 10x3/uL (150-450); RBC Distribution Width 19.6 % (11.5-14.5); Red Blood Cell (RBC) Count 3.78 10x6/uL (3.90-5.03); White Blood Cell (WBC) Count 2.9 10x3/uL (3.5-10.5)
[2022-08-22 05:53] LABS: Anion Gap 11 mmol/L (10-20); BUN (Urea Nitrogen) 9 mg/dL (9.8-20.1); Calc. Creatinine Clearance 134 mL/min (70-130); Calcium 8.7 mg/dL (7.8-10.44); Carbon Dioxide 31 mmol/L (23-31); Chloride 90 mmol/L (98-107); Estimated GFR 80; Glucose 86 mg/dL (83-110); Potassium 3.6 mmol/L (3.5-5.1); Sodium 128 mmol/L (136-145)
[2022-08-22 06:31] VITALS: BMI 43.6
[2022-08-22] MEDS: Carvedilol 6.25 MG TAB PO SCH ×2 (08:36→15:53)
[2022-08-22] MEDS: Metolazone 2.5 MG TAB PO SCH (08:36)
[2022-08-22] MEDS: Apixaban 5 MG TAB PO SCH ×2 (08:36→20:07)
[2022-08-22] MEDS: Pramipexole Di-HCl 0.25 MG TAB PO SCH ×2 (08:36→20:06)
[2022-08-22] MEDS: Atorvastatin Calcium 40 MG TAB PO SCH (08:39)
[2022-08-22] MEDS: Sodium Chloride 1 GM TAB PO SCH ×3 (08:39→20:06)
[2022-08-23 05:57] LABS: #Eosinphils 0.2 10x3/uL (0.0-0.5); #Monocytes 0.4 10x3/uL (0.0-1.1); #Neutrophils 1.6 10x3/uL (1.5-8.4); %Basophils 1.5 % (0.0-2.0); %Eosinophils 7.6 % (0.0-6.0); %Lymphocytes 14.9 % (18.0-47.0); %Monocytes 14.5 % (0.0-10.0); %Neutrophils 61.5 % (40.0-75.0); Hemoglobin 9.4 g/dL (12.0-15.5); Mean Corpuscular HGB CONC 33.2 g/dL (32.0-36.0); Mean Corpuscular Volume 78.2 fl (81.6-98.3); Platelet Count 139 10x3/uL (150-450); RBC Distribution Width 19.7 % (11.5-14.5); Red Blood Cell (RBC) Count 3.62 10x6/uL (3.90-5.03); White Blood Cell (WBC) Count 2.6 10x3/uL (3.5-10.5)
[2022-08-23 06:12] LABS: Anion Gap 11 mmol/L (10-20); BUN (Urea Nitrogen) 10 mg/dL (9.8-20.1); Calc. Creatinine Clearance 134 mL/min (70-130); Calcium 8.7 mg/dL (7.8-10.44); Carbon Dioxide 31 mmol/L (23-31); Chloride 91 mmol/L (98-107); Estimated GFR 82; Glucose 95 mg/dL (83-110); Potassium 3.5 mmol/L (3.5-5.1); Sodium 129 mmol/L (136-145)
[2022-08-23] MEDS: Metolazone 2.5 MG TAB PO SCH (08:52)
[2022-08-23] MEDS: Apixaban 5 MG TAB PO SCH ×2 (08:52→21:36)
[2022-08-23] MEDS: Pramipexole Di-HCl 0.25 MG TAB PO SCH ×2 (08:52→21:36)
[2022-08-23] MEDS: Carvedilol 6.25 MG TAB PO SCH ×2 (08:52→16:26)
[2022-08-23] MEDS: Atorvastatin Calcium 40 MG TAB PO SCH (08:52)
[2022-08-23] MEDS: Sodium Chloride 1 GM TAB PO SCH ×4 (08:53→21:36)
[2022-08-24 08:30] LABS: Anion Gap 10 mmol/L (10-20); BUN (Urea Nitrogen) 11 mg/dL (9.8-20.1); Calc. Creatinine Clearance 127 mL/min (70-130); Calcium 8.9 mg/dL (7.8-10.44); Carbon Dioxide 31 mmol/L (23-31); Chloride 92 mmol/L (98-107); Estimated GFR 79; Glucose 88 mg/dL (83-110); Potassium 3.4 mmol/L (3.5-5.1); Sodium 130 mmol/L (136-145)
[2022-08-24] MEDS: Carvedilol 6.25 MG TAB PO SCH ×2 (09:29→16:40)
[2022-08-24] MEDS: Atorvastatin Calcium 40 MG TAB PO SCH (09:29)
[2022-08-24] MEDS: Pramipexole Di-HCl 0.25 MG TAB PO SCH ×2 (09:29→20:23)
[2022-08-24] MEDS: Apixaban 5 MG TAB PO SCH ×2 (09:29→20:23)
[2022-08-24] MEDS ORDERED: Potassium Chloride 20 MEQ TAB PO SCH (09:30)
[2022-08-24] MEDS: Metolazone 2.5 MG TAB PO SCH (09:30)
[2022-08-24] MEDS: Sodium Chloride 1 GM TAB PO SCH ×2 (16:40→21:40)
[2022-08-24] MEDS: Acetaminophen 500 MG TAB PO PRN (20:23)
[2022-08-24] MEDS: Ipratropium/Albuterol 3 ML NEB NEB PRN (21:16)
[2022-08-25] MEDS: Acetaminophen 325 MG TAB PO PRN ×2 (05:24→21:27)
[2022-08-25] MEDS: Sodium Chloride 1 GM TAB PO SCH ×3 (09:06→21:28)
[2022-08-25] MEDS: Atorvastatin Calcium 40 MG TAB PO SCH (09:06)
[2022-08-25] MEDS: Pramipexole Di-HCl 0.25 MG TAB PO SCH ×2 (09:06→21:27)
[2022-08-25] MEDS: Apixaban 5 MG TAB PO SCH ×2 (09:06→21:27)
[2022-08-25] MEDS: Carvedilol 6.25 MG TAB PO SCH ×2 (09:06→17:28)
[2022-08-25 09:15] LABS: Anion Gap 12 mmol/L (10-20); BUN (Urea Nitrogen) 11 mg/dL (9.8-20.1); Calc. Creatinine Clearance 134 mL/min (70-130); Calcium 8.9 mg/dL (7.8-10.44); Carbon Dioxide 27 mmol/L (23-31); Chloride 93 mmol/L (98-107); Estimated GFR 84; Glucose 109 mg/dL (83-110); Potassium 3.8 mmol/L (3.5-5.1); Sodium 128 mmol/L (136-145)
[2022-08-26] MEDS: Acetaminophen 500 MG TAB PO PRN (04:40)
[2022-08-26 08:51] LABS: Anion Gap 11 mmol/L (10-20); BUN (Urea Nitrogen) 10 mg/dL (9.8-20.1); Calc. Creatinine Clearance 137 mL/min (70-130); Calcium 8.9 mg/dL (7.8-10.44); Carbon Dioxide 29 mmol/L (23-31); Chloride 95 mmol/L (98-107); Estimated GFR 86; Glucose 80 mg/dL (83-110); Potassium 3.9 mmol/L (3.5-5.1); Sodium 131 mmol/L (136-145)
[2022-08-26] MEDS: Carvedilol 6.25 MG TAB PO SCH ×2 (08:51→16:08)
[2022-08-26] MEDS: Sodium Chloride 1 GM TAB PO SCH ×3 (08:51→20:23)
[2022-08-26] MEDS: Pramipexole Di-HCl 0.25 MG TAB PO SCH ×2 (08:51→20:23)
[2022-08-26] MEDS: Apixaban 5 MG TAB PO SCH ×2 (08:51→20:23)
[2022-08-26] MEDS: Atorvastatin Calcium 40 MG TAB PO SCH (08:51)
[2022-08-26] MEDS: Metolazone 2.5 MG TAB PO SCH (08:51)
[2022-08-26] MEDS ORDERED: Zinc Sulfate 220 MG CAP PO SCH (16:00)
[2022-08-27 04:57] LABS: Anion Gap 11 mmol/L (10-20); BUN (Urea Nitrogen) 12 mg/dL (9.8-20.1); Calc. Creatinine Clearance 130 mL/min (70-130); Calcium 8.7 mg/dL (7.8-10.44); Carbon Dioxide 29 mmol/L (23-31); Chloride 95 mmol/L (98-107); Estimated GFR 81; Glucose 120 mg/dL (83-110); Potassium 3.5 mmol/L (3.5-5.1); Sodium 131 mmol/L (136-145)
[2022-08-27] MEDS: Apixaban 5 MG TAB PO SCH ×2 (09:41→20:30)
[2022-08-27] MEDS: Atorvastatin Calcium 40 MG TAB PO SCH (09:41)
[2022-08-27] MEDS: Sodium Chloride 1 GM TAB PO SCH ×3 (09:41→20:30)
[2022-08-27] MEDS: Carvedilol 6.25 MG TAB PO SCH ×2 (09:41→16:15)
[2022-08-27] MEDS: Zinc Sulfate 220 MG CAP PO SCH (09:41)
[2022-08-27] MEDS: Pramipexole Di-HCl 0.25 MG TAB PO SCH ×2 (09:42→20:30)
[2022-08-28] MEDS: Acetaminophen 500 MG TAB PO PRN (01:01)
[2022-08-28] MEDS: Atorvastatin Calcium 40 MG TAB PO SCH (09:24)
[2022-08-28] MEDS: Sodium Chloride 1 GM TAB PO SCH ×3 (09:25→21:33)
[2022-08-28] MEDS: Zinc Sulfate 220 MG CAP PO SCH (09:25)
[2022-08-28] MEDS: Pramipexole Di-HCl 0.25 MG TAB PO SCH ×2 (09:25→21:33)
[2022-08-28] MEDS: Carvedilol 6.25 MG TAB PO SCH ×2 (09:25→16:09)
[2022-08-28] MEDS: Apixaban 5 MG TAB PO SCH ×2 (09:25→21:33)
[2022-08-28] MEDS: Metolazone 2.5 MG TAB PO SCH (10:00)
[2022-08-29] MEDS: Acetaminophen 500 MG TAB PO PRN (01:32)
[2022-08-29 03:57] LABS: Anion Gap 11 mmol/L (10-20); BUN (Urea Nitrogen) 11 mg/dL (9.8-20.1); Calc. Creatinine Clearance 127 mL/min (70-130); Calcium 8.6 mg/dL (7.8-10.44); Carbon Dioxide 28 mmol/L (23-31); Chloride 97 mmol/L (98-107); Estimated GFR 84; Glucose 114 mg/dL (83-110); Potassium 3.5 mmol/L (3.5-5.1); Sodium 132 mmol/L (136-145)
[2022-08-29] MEDS: Zinc Sulfate 220 MG CAP PO SCH (09:11)
[2022-08-29] MEDS: Sodium Chloride 1 GM TAB PO SCH (09:11)
[2022-08-29] MEDS: Atorvastatin Calcium 40 MG TAB PO SCH (09:11)
[2022-08-29] MEDS: Apixaban 5 MG TAB PO SCH (09:11)
[2022-08-29] MEDS: Pramipexole Di-HCl 0.25 MG TAB PO SCH (09:11)
[2022-08-29] MEDS: Carvedilol 6.25 MG TAB PO SCH (09:11)
[2022-08-29 12:31] VITALS: BP 121/54; TEMP 98
== END 2022-08-29 14:33 | DRG 644 ==
LOC: CSHTELE 06:06
PROVIDERS: ADMIT Student in an Organized Health Care Education/Training Program; ATTEND Family Medicine
DX: E22.2 Syndrome of inappropriate secretion of antidiuretic hormone (principal); I13.0 Hypertensive heart and chronic kidney disease with heart failure and stage 1 through stage 4 chronic kidney disease, or unspecified chronic kidney disease; I51.81 Takotsubo syndrome; I50.32 Chronic diastolic (congestive) heart failure; Z68.41 Body mass index [BMI] 40.0-44.9, adult; I48.20 Chronic atrial fibrillation, unspecified; E78.5 Hyperlipidemia, unspecified; E66.01 Morbid (severe) obesity due to excess calories; D63.1 Anemia in chronic kidney disease; N18.32 Chronic kidney disease, stage 3b; Z20.822 Contact with and (suspected) exposure to COVID-19; Z91.040 Latex allergy status; Z91.013 Allergy to seafood; Z91.09 Other allergy status, other than to drugs and biological substances; Z79.01 Long term (current) use of anticoagulants; Z79.899 Other long term (current) drug therapy; Z85.3 Personal history of malignant neoplasm of breast; Z98.890 Other specified postprocedural states
CPT/HCPCS: 36415; 36416; 71045; 80048; 83735; 83930; 83935; 84300; 85025; 87811; 93306; 94640; 94760; 97139; J3475; J7050; J7620; U0002

== ENCOUNTER 2022-11-17 01:58 | Emergency (ER) | payer MEDICARE ==
[2022-11-17 02:38] LABS: #Basophils 0.1 10x3/uL (0.0-0.2); #Eosinphils 0.3 10x3/uL (0.0-0.5); #Monocytes 0.5 10x3/uL (0.0-1.1); #Neutrophils 1.9 10x3/uL (1.5-8.4); %Basophils 1.5 % (0.0-2.0); %Eosinophils 9.2 % (0.0-6.0); %Monocytes 14.1 % (0.0-10.0); %Neutrophils 59.2 % (40.0-75.0); Hemoglobin 9.7 g/dL (12.0-15.5); Mean Corpuscular HGB CONC 31.1 g/dL (32.0-36.0); Mean Corpuscular Hemoglobin 26.6 pg (27.0-33.0); Mean Corpuscular Volume 85.7 fl (81.6-98.3); Mean Platelet Volume 9.5 fl (7.4-10.4); Platelet Count 171 10x3/uL (150-450); RBC Distribution Width 21.3 % (11.5-14.5); Red Blood Cell (RBC) Count 3.64 10x6/uL (3.90-5.03); White Blood Cell (WBC) Count 3.3 10x3/uL (3.5-10.5)
[2022-11-17 02:41] LABS: ALT (SGPT) 14 U/L (8-55); AST (SGOT) 28 U/L (5-34); Albumin 3.2 g/dL (3.4-4.8); Alkaline Phosphatase 256 U/L (40-110); Anion Gap 14 mmol/L (10-20); BUN (Urea Nitrogen) 26 mg/dL (9.8-20.1); Bilirubin, Total 1.6 mg/dL (0.2-1.2); Calc. Creatinine Clearance 0 mL/min (70-130); Calcium 9.1 mg/dL (7.8-10.44); Carbon Dioxide 24 mmol/L (23-31); Chloride 104 mmol/L (98-107); Estimated GFR 47; Globulin 3.9 g/dL (2.4-3.5); Glucose 98 mg/dL (83-110); Potassium 3.5 mmol/L (3.5-5.1); Protein, Total 7.1 g/dL (5.8-8.1); Sodium 138 mmol/L (136-145)
== END 2022-11-17 03:03 | disposition home or self-care (01) ==
LOC: CSHERS 01:58
DX: R41.0 Disorientation, unspecified (principal); I13.0 Hypertensive heart and chronic kidney disease with heart failure and stage 1 through stage 4 chronic kidney disease, or unspecified chronic kidney disease; I50.9 Heart failure, unspecified; E78.5 Hyperlipidemia, unspecified; N18.9 Chronic kidney disease, unspecified; I48.91 Unspecified atrial fibrillation; E11.22 Type 2 diabetes mellitus with diabetic chronic kidney disease; Z79.01 Long term (current) use of anticoagulants; Z79.899 Other long term (current) drug therapy
CPT/HCPCS: 36415; 80053; 85025; 99285

== ENCOUNTER 2022-11-19 16:05 | Inpatient (IN) | payer MEDICARE ==
[~2022-11-19 16:05] MED LIST: Iopamidol 370 76% 100 ML VIAL ONE
[2022-11-19 17:28] LABS: #Eosinphils 0.2 10x3/uL (0.0-0.5); #Monocytes 0.6 10x3/uL (0.0-1.1); #Neutrophils 2.6 10x3/uL (1.5-8.4); %Eosinophils 5.6 % (0.0-6.0); %Lymphocytes 12.7 % (18.0-47.0); %Monocytes 13.9 % (0.0-10.0); %Neutrophils 66.5 % (40.0-75.0); Hemoglobin 9.6 g/dL (12.0-15.5); Mean Corpuscular HGB CONC 31.3 g/dL (32.0-36.0); Mean Corpuscular Hemoglobin 26.8 pg (27.0-33.0); Mean Corpuscular Volume 85.8 fl (81.6-98.3); Mean Platelet Volume 10.1 fl (7.4-10.4); Platelet Count 174 10x3/uL (150-450); RBC Distribution Width 21.2 % (11.5-14.5); Red Blood Cell (RBC) Count 3.58 10x6/uL (3.90-5.03)
[2022-11-19 17:28] LABS: Actual Bicarbonate (HCO3a) 22.4 mEq/L (22-28); Base Excess (BEa) -2.9 mEq/L (-2.0 to +3.0); CO2 Tension 40.9 mmHg (35.0-45.0); Calcium, Ionized (arterial) 1.21 mmol/L (1.12-1.30); Carboxyhemoglobin (COHb) 0.3 gm% (0.0-3.0); Hemoglobin (Hb) 10.5 g/dL (12.0-16.0); O2 Tension (PaO2), arterial 125.2 mmHg (> 70.0); Potassium - ABG Lab 3.3 mmol/L (3.70-5.30); Puncture Site LRA; pH, Arterial 7.36 (7.35-7.45)
[2022-11-19 17:32] LABS: ALV-art Gradient 51.835 mmHg (0-20)
[2022-11-19] MEDS ORDERED: Famotidine/PF 20 mg/2ml Vial ONE (17:35)
[2022-11-19] MEDS ORDERED: methylPREDNISolone Sod Succ/PF 125 MG/2 ML VIAL ONE (17:35)
[2022-11-19] MEDS ORDERED: diphenhydrAMINE 50 MG/ML VIAL ONE (17:35)
[2022-11-19 17:43] LABS: Acetaminophen Less than 10.0 mcg/mL (10.0-30.0); Alcohol Less than 10 mg/dL (Less than 10); Salicylate Less than 8.0 mg/dL (15.0-30.0)
[2022-11-19 17:48] LABS: ALT (SGPT) 15 U/L (8-55); AST (SGOT) 28 U/L (5-34); Albumin 3.2 g/dL (3.4-4.8); Alkaline Phosphatase 238 U/L (40-110); Anion Gap 13 mmol/L (10-20); BUN (Urea Nitrogen) 25 mg/dL (9.8-20.1); Bilirubin, Total 1.7 mg/dL (0.2-1.2); CK (CPK) 31 U/L (29-168); Calc. Creatinine Clearance 0 mL/min (70-130); Calcium 8.6 mg/dL (7.8-10.44); Carbon Dioxide 27 mmol/L (23-31); Chloride 106 mmol/L (98-107); Estimated GFR 52; Globulin 3.4 g/dL (2.4-3.5); Glucose 115 mg/dL (83-110); Lipase 7 U/L (8-78); Potassium 3.5 mmol/L (3.5-5.1); Protein, Total 6.6 g/dL (5.8-8.1); Sodium 142 mmol/L (136-145)
[2022-11-19] MEDS ORDERED: Ondansetron PF 4 MG/2 ML Vial IVP PRN (19:40)
[2022-11-19] MEDS ORDERED: Acetaminophen 325 MG TAB PO PRN (19:40)
[2022-11-19] MEDS ORDERED: Senokot S 8.6-50 MG TAB PO PRN (19:40)
[2022-11-19] MEDS ORDERED: Guaifenesin DM 100-10/5 ML UDCUP PO PRN (19:40)
[2022-11-19] MEDS ORDERED: Calcium Carbonate 500 MG ChewTAB PO PRN (19:40)
[2022-11-19] MEDS ORDERED: Ipratropium/Albuterol 3 ML NEB ONE (19:57)
[2022-11-19] MEDS ORDERED: Bumetanide 1 MG/4 ML VIAL IVP SCH (20:00)
[2022-11-19] MEDS ORDERED: Dextrose 5% in Water 1,000 ML IV PRN (20:03)
[2022-11-19] MEDS ORDERED: Dextrose 50% Abboject 50 ML SYRINGE SLOW IVP PRN (20:03)
[2022-11-19] MEDS ORDERED: HumaLOG 300 UNITS/3 ML VIAL SC PRN (20:03)
[2022-11-19] MEDS ORDERED: Famotidine 20 MG TAB PO SCH (21:00)
[2022-11-19] MEDS ORDERED: Apixaban 5 MG TAB PO SCH (21:00)
[2022-11-19 21:35] LABS: Bilirubin Neg (Negative); Blood, Urine 150 (Negative); Clarity Clear (Clear); Glucose, Urine (Dipstick) Normal (Negative); Ketone, Urine Negative (Negative); Leukocyte 500 (Negative); Nitrite Positive (Negative); Protein, Urine (Dipstick) 30 mg/dl (Neg-Trace); Urobilinogen Normal mg/dL (Less than 2)
[2022-11-19 21:43] LABS: Amphetamine Not Detected (NotDetected); Barbiturates Screen Not Detected (NotDetected); Benzodiazepine Screen Not Detected (NotDetected); Cocaine Metabolite Screen Not Detected (NotDetected); Methadone Not Detected (NotDetected); Methamphetamine Not Detected (NotDetected); Opiate Screen Not Detected (NotDetected); Oxycodone Screen Not Detected (NotDetected); Phencyclidine (PCP) Not Detected (NotDetected); THC/Cannabinoid Screen Not Detected (NotDetected); Tricyclic Screen Not Detected (NotDetected)
[2022-11-19 21:45] LABS: Squamous Epithelial 0-3 HPF (0-3)
[2022-11-19 21:46] LABS: Bacteria/HPF 3+ HPF (None Seen)
[2022-11-19 22:21] LABS: SARS-CoV-2 NAA Rapid Test Not Detected (NotDetected)
[2022-11-20] MEDS: Diclofenac 1% 100 GM GEL TP SCH ×5 (00:25→21:30)
[2022-11-20] MEDS: Hydrocortisone 1% Cream 30 GM TUBE TOP SCH ×3 (00:26→21:20)
[2022-11-20] MEDS ORDERED: Metoprolol Tartrate 5 MG/5 ML VIAL IVP SCH (03:00)
[2022-11-20 03:37] LABS: %Basophils 0.3 % (0.0-2.0); %Lymphocytes 7.9 % (18.0-47.0); %Monocytes 1.2 % (0.0-10.0); %Neutrophils 90.6 % (40.0-75.0); Hemoglobin 10.5 g/dL (12.0-15.5); Mean Corpuscular HGB CONC 31.3 g/dL (32.0-36.0); Mean Corpuscular Hemoglobin 26.7 pg (27.0-33.0); Mean Corpuscular Volume 85.2 fl (81.6-98.3); Mean Platelet Volume 9.9 fl (7.4-10.4); Platelet Count 176 10x3/uL (150-450); RBC Distribution Width 21.3 % (11.5-14.5); Red Blood Cell (RBC) Count 3.93 10x6/uL (3.90-5.03); White Blood Cell (WBC) Count 3.3 10x3/uL (3.5-10.5)
[2022-11-20 03:51] LABS: Anion Gap 15 mmol/L (10-20); BUN (Urea Nitrogen) 25 mg/dL (9.8-20.1); Calc. Creatinine Clearance 94 mL/min (70-130); Calcium 9.3 mg/dL (7.8-10.44); Carbon Dioxide 24 mmol/L (23-31); Chloride 104 mmol/L (98-107); Estimated GFR 52; Glucose 145 mg/dL (83-110); Potassium 3.4 mmol/L (3.5-5.1); Sodium 140 mmol/L (136-145)
[2022-11-20 04:13] LABS: Free T4 (Free Thyroxine) 1.12 ng/dL (0.70-1.48); Thyroid Stimulating Hormone 1.2605 uIU/mL (0.35-4.94)
[2022-11-20] MEDS: Bumetanide 1 MG/4 ML VIAL IVP SCH ×2 (06:42→13:38)
[2022-11-20] MEDS: Ipratropium/Albuterol 3 ML NEB NEB PRN ×2 (07:30→19:40)
[2022-11-20] MEDS ORDERED: Metolazone 2.5 MG TAB PO SCH (08:30)
[2022-11-20] MEDS ORDERED: Famotidine/PF 20 mg/2ml Vial SLOW IVP SCH (09:00)
[2022-11-20] MEDS ORDERED: Electrolyte Replacement Protocol 1 EACH FS SCH (09:30)
[2022-11-20] MEDS: Atorvastatin Calcium 40 MG TAB PO SCH (09:32)
[2022-11-20] MEDS: Carvedilol 6.25 MG TAB PO SCH ×2 (09:32→17:09)
[2022-11-20] MEDS ORDERED: Potassium Bicarbonate/Cit Ac 20 MEQ TAB PO SCH (12:00)
[2022-11-20] MEDS ORDERED: Potassium Chloride 20 MEQ TAB PO SCH (13:30)
[2022-11-20 14:23] LABS: Magnesium 1.7 mg/dL (1.6-2.6)
[2022-11-20] MEDS ORDERED: Magnesium 2 GM/50 ML(in water) 2 GM in Premix Bag 1 BAG IVPB SCH (14:45)
[2022-11-20] MEDS: cefTRIAXone\\ROCEPHIN 1 GM in Sodium Chloride 0.9% 100 ML IVPB SCH (15:08)
[2022-11-20] MEDS: Pramipexole Di-HCl 1 MG TAB PO SCH ×2 (15:09→21:09)
[2022-11-20 16:21] LABS: Potassium 3.3 mmol/L (3.5-5.1)
[2022-11-20] MEDS: Sodium Chloride 0.65% Nasal 44 ML BOT EA NARE SCH ×2 (16:21→21:10)
[2022-11-20] MEDS: Multivit, Therapeutic 1 TAB PO SCH (21:09)
[2022-11-20] MEDS: Cyanocobalamin (Vitamin B-12) 1,000 MCG TAB PO SCH (21:10)
[2022-11-20] MEDS: Apixaban 5 MG TAB PO SCH (21:10)
[2022-11-20] MEDS: Folic Acid 1 MG TAB PO SCH (21:10)
[2022-11-20] MEDS: Famotidine 20 MG TAB PO SCH (21:10)
[2022-11-20] MEDS: Cholecalciferol 1,000 UNITS (25 MCG) TAB PO SCH (21:10)
[2022-11-21 03:48] LABS: #Monocytes 0.5 10x3/uL (0.0-1.1); #Neutrophils 2.8 10x3/uL (1.5-8.4); %Basophils 0.3 % (0.0-2.0); %Lymphocytes 12.4 % (18.0-47.0); %Monocytes 13.7 % (0.0-10.0); %Neutrophils 73.3 % (40.0-75.0); Mean Corpuscular Hemoglobin 26.7 pg (27.0-33.0); Mean Corpuscular Volume 83.4 fl (81.6-98.3); Mean Platelet Volume 9.7 fl (7.4-10.4); Platelet Count 164 10x3/uL (150-450); RBC Distribution Width 21.2 % (11.5-14.5); Red Blood Cell (RBC) Count 3.37 10x6/uL (3.90-5.03); White Blood Cell (WBC) Count 3.9 10x3/uL (3.5-10.5)
[2022-11-21 03:50] LABS: ALT (SGPT) 11 U/L (8-55); AST (SGOT) 21 U/L (5-34); Alkaline Phosphatase 194 U/L (40-110); Anion Gap 14 mmol/L (10-20); BUN (Urea Nitrogen) 37 mg/dL (9.8-20.1); Bilirubin, Total 1.2 mg/dL (0.2-1.2); Calc. Creatinine Clearance 73 mL/min (70-130); Calcium 8.8 mg/dL (7.8-10.44); Carbon Dioxide 25 mmol/L (23-31); Chloride 102 mmol/L (98-107); Estimated GFR 38; Globulin 3.4 g/dL (2.4-3.5); Glucose 100 mg/dL (83-110); Magnesium 1.9 mg/dL (1.6-2.6); Phosphorus 3.5 mg/dL (2.3-4.7); Potassium 3.1 mmol/L (3.5-5.1); Protein, Total 6.4 g/dL (5.8-8.1); Sodium 138 mmol/L (136-145)
[2022-11-21] MEDS: Bumetanide 1 MG/4 ML VIAL IVP SCH ×2 (06:04→13:03)
[2022-11-21] MEDS ORDERED: Magnesium 2 GM/50 ML(in water) 2 GM in Premix Bag 1 BAG IVPB SCH (08:00)
[2022-11-21] MEDS ORDERED: Potassium Chloride 20 MEQ TAB PO SCH ×2 (08:00→16:15)
[2022-11-21] MEDS: pyridOXINE 50 MG (B6) TAB PO SCH (09:01)
[2022-11-21] MEDS: Apixaban 5 MG TAB PO SCH ×2 (09:01→21:49)
[2022-11-21] MEDS: Carvedilol 6.25 MG TAB PO SCH ×2 (09:02→16:32)
[2022-11-21] MEDS: Famotidine 20 MG TAB PO SCH (09:02)
[2022-11-21] MEDS: Atorvastatin Calcium 40 MG TAB PO SCH (09:02)
[2022-11-21] MEDS: Pramipexole Di-HCl 1 MG TAB PO SCH ×3 (09:03→21:52)
[2022-11-21] MEDS: Diclofenac 1% 100 GM GEL TP SCH ×2 (09:03→13:01)
[2022-11-21] MEDS: Sodium Chloride 0.65% Nasal 44 ML BOT EA NARE SCH ×3 (09:06→21:52)
[2022-11-21] MEDS: Hydrocortisone 1% Cream 30 GM TUBE TOP SCH (09:06)
[2022-11-21] MEDS ORDERED: Spironolactone 25 MG TAB PO SCH (12:00)
[2022-11-21] MEDS: cefTRIAXone\\ROCEPHIN 1 GM in Sodium Chloride 0.9% 100 ML IVPB SCH (13:34)
[2022-11-21] MEDS: Albumin 25% 25 GM/100 ML BOT IVPB SCH ×2 (15:51→21:49)
[2022-11-21 16:03] LABS: Anion Gap 15 mmol/L (10-20); BUN (Urea Nitrogen) 39 mg/dL (9.8-20.1); Calc. Creatinine Clearance 66 mL/min (70-130); Calcium 8.9 mg/dL (7.8-10.44); Carbon Dioxide 26 mmol/L (23-31); Chloride 100 mmol/L (98-107); Estimated GFR 35; Glucose 141 mg/dL (83-110); Potassium 3.2 mmol/L (3.5-5.1); Sodium 138 mmol/L (136-145)
[2022-11-21] MEDS: Cholecalciferol 1,000 UNITS (25 MCG) TAB PO SCH (21:49)
[2022-11-21] MEDS: Folic Acid 1 MG TAB PO SCH (21:49)
[2022-11-21] MEDS: Multivit, Therapeutic 1 TAB PO SCH (21:49)
[2022-11-21] MEDS: Cyanocobalamin (Vitamin B-12) 1,000 MCG TAB PO SCH (21:49)
[2022-11-22 04:29] LABS: #Basophils 0.1 10x3/uL (0.0-0.2); #Eosinphils 0.2 10x3/uL (0.0-0.5); #Monocytes 0.5 10x3/uL (0.0-1.1); #Neutrophils 2.1 10x3/uL (1.5-8.4); %Basophils 1.7 % (0.0-2.0); %Eosinophils 5.8 % (0.0-6.0); %Lymphocytes 17.1 % (18.0-47.0); %Monocytes 14.7 % (0.0-10.0); %Neutrophils 60.7 % (40.0-75.0); Hemoglobin 9.4 g/dL (12.0-15.5); Mean Corpuscular HGB CONC 32.3 g/dL (32.0-36.0); Mean Corpuscular Hemoglobin 26.6 pg (27.0-33.0); Mean Corpuscular Volume 82.4 fl (81.6-98.3); Mean Platelet Volume 9.6 fl (7.4-10.4); Platelet Count 170 10x3/uL (150-450); RBC Distribution Width 21.1 % (11.5-14.5); Red Blood Cell (RBC) Count 3.53 10x6/uL (3.90-5.03); White Blood Cell (WBC) Count 3.5 10x3/uL (3.5-10.5)
[2022-11-22 04:37] LABS: ALT (SGPT) 12 U/L (8-55); AST (SGOT) 25 U/L (5-34); Albumin 3.4 g/dL (3.4-4.8); Alkaline Phosphatase 202 U/L (40-110); Anion Gap 15 mmol/L (10-20); BUN (Urea Nitrogen) 40 mg/dL (9.8-20.1); Bilirubin, Total 1.1 mg/dL (0.2-1.2); Calc. Creatinine Clearance 69 mL/min (70-130); Carbon Dioxide 27 mmol/L (23-31); Chloride 100 mmol/L (98-107); Estimated GFR 38; Globulin 3.5 g/dL (2.4-3.5); Glucose 121 mg/dL (83-110); Magnesium 2.1 mg/dL (1.6-2.6); Potassium 3.7 mmol/L (3.5-5.1); Protein, Total 6.9 g/dL (5.8-8.1); Sodium 138 mmol/L (136-145)
[2022-11-22] MEDS: Apixaban 5 MG TAB PO SCH ×2 (07:49→20:18)
[2022-11-22] MEDS: Spironolactone 25 MG TAB PO SCH (07:49)
[2022-11-22] MEDS: Carvedilol 6.25 MG TAB PO SCH ×2 (07:49→16:18)
[2022-11-22] MEDS: Famotidine 20 MG TAB PO SCH (07:50)
[2022-11-22] MEDS: Atorvastatin Calcium 40 MG TAB PO SCH (07:50)
[2022-11-22] MEDS: pyridOXINE 50 MG (B6) TAB PO SCH (07:50)
[2022-11-22] MEDS: Pramipexole Di-HCl 1 MG TAB PO SCH ×3 (07:50→20:52)
[2022-11-22] MEDS: Bumetanide 1 MG/4 ML VIAL IVP SCH (08:42)
[2022-11-22 08:57] VITALS: BMI 43.1
[2022-11-22] MEDS ORDERED: Lisinopril 2.5 MG TAB PO SCH (09:00)
[2022-11-22] MEDS: Sodium Chloride 0.65% Nasal 44 ML BOT EA NARE SCH ×3 (10:48→20:17)
[2022-11-22] MEDS: cefTRIAXone\\ROCEPHIN 1 GM in Sodium Chloride 0.9% 100 ML IVPB SCH (14:15)
[2022-11-22] MEDS ORDERED: Potassium Chloride 20 MEQ TAB PO SCH (17:45)
[2022-11-22] MEDS: Cholecalciferol 1,000 UNITS (25 MCG) TAB PO SCH (20:18)
[2022-11-22] MEDS: Cyanocobalamin (Vitamin B-12) 1,000 MCG TAB PO SCH (20:18)
[2022-11-22] MEDS: Multivit, Therapeutic 1 TAB PO SCH (20:18)
[2022-11-22] MEDS: Folic Acid 1 MG TAB PO SCH (20:18)
[2022-11-23 05:28] LABS: ALT (SGPT) 12 U/L (8-55); AST (SGOT) 28 U/L (5-34); Albumin 3.1 g/dL (3.4-4.8); Alkaline Phosphatase 191 U/L (40-110); Anion Gap 13 mmol/L (10-20); BUN (Urea Nitrogen) 38 mg/dL (9.8-20.1); Calc. Creatinine Clearance 0 mL/min (70-130); Calcium 8.6 mg/dL (7.8-10.44); Carbon Dioxide 29 mmol/L (23-31); Chloride 99 mmol/L (98-107); Estimated GFR 47; Globulin 3.2 g/dL (2.4-3.5); Glucose 128 mg/dL (83-110); Protein, Total 6.3 g/dL (5.8-8.1); Sodium 137 mmol/L (136-145)
[2022-11-23 05:38] LABS: Hemoglobin 9.3 g/dL (12.0-15.5); Mean Corpuscular HGB CONC 32.5 g/dL (32.0-36.0); Mean Corpuscular Hemoglobin 26.9 pg (27.0-33.0); Mean Corpuscular Volume 82.7 fl (81.6-98.3); Mean Platelet Volume 9.9 fl (7.4-10.4); Platelet Count 165 10x3/uL (150-450); RBC Distribution Width 20.7 % (11.5-14.5); Red Blood Cell (RBC) Count 3.46 10x6/uL (3.90-5.03)
[2022-11-23 05:40] LABS: MDiff Complete? YES
[2022-11-23 06:26] LABS: Band 1 % (5-11); Eosinophils 14 % (0-10); Lymphocytes 17 % (21-51); Monocytes 18 % (0-10); Neutrophil 50 % (42-75)
[2022-11-23 06:28] LABS: Platelet Morphology Comment Appears Adequate
[2022-11-23 06:29] LABS: Hypochromia SLIGHT = 6-15 cells (100X) (0-5/hpf)
[2022-11-23] MEDS: Atorvastatin Calcium 40 MG TAB PO SCH (08:48)
[2022-11-23] MEDS: Sodium Chloride 0.65% Nasal 44 ML BOT EA NARE SCH ×3 (08:48→20:33)
[2022-11-23] MEDS: pyridOXINE 50 MG (B6) TAB PO SCH (08:48)
[2022-11-23] MEDS: Apixaban 5 MG TAB PO SCH ×2 (08:49→20:27)
[2022-11-23] MEDS: Carvedilol 6.25 MG TAB PO SCH ×2 (08:49→16:52)
[2022-11-23] MEDS: Pramipexole Di-HCl 1 MG TAB PO SCH ×3 (08:49→20:27)
[2022-11-23] MEDS: Famotidine 20 MG TAB PO SCH (08:49)
[2022-11-23] MEDS: Spironolactone 25 MG TAB PO SCH (08:49)
[2022-11-23] MEDS: Bumetanide 1 MG/4 ML VIAL IVP SCH (11:15)
[2022-11-23] MEDS: cefTRIAXone\\ROCEPHIN 1 GM in Sodium Chloride 0.9% 100 ML IVPB SCH (13:33)
[2022-11-23] MEDS: Cyanocobalamin (Vitamin B-12) 1,000 MCG TAB PO SCH (20:27)
[2022-11-23] MEDS: Cholecalciferol 1,000 UNITS (25 MCG) TAB PO SCH (20:27)
[2022-11-23] MEDS: Folic Acid 1 MG TAB PO SCH (20:27)
[2022-11-23] MEDS: Multivit, Therapeutic 1 TAB PO SCH (20:27)
[2022-11-23] MEDS: Nystatin Powder 15 GM BOT TOP SCH (22:29)
[2022-11-24 06:28] LABS: Anion Gap 15 mmol/L (10-20); BUN (Urea Nitrogen) 34 mg/dL (9.8-20.1); Calc. Creatinine Clearance 0 mL/min (70-130); Calcium 8.7 mg/dL (7.8-10.44); Carbon Dioxide 28 mmol/L (23-31); Chloride 98 mmol/L (98-107); Estimated GFR 54; Glucose 102 mg/dL (83-110); Magnesium 1.8 mg/dL (1.6-2.6); Potassium 3.9 mmol/L (3.5-5.1); Sodium 137 mmol/L (136-145)
[2022-11-24 07:17] LABS: #Eosinphils 0.5 10x3/uL (0.0-0.5); #Monocytes 0.6 10x3/uL (0.0-1.1); #Neutrophils 2.3 10x3/uL (1.5-8.4); %Eosinophils 11.2 % (0.0-6.0); %Monocytes 13.7 % (0.0-10.0); %Neutrophils 57.9 % (40.0-75.0); Hemoglobin 9.8 g/dL (12.0-15.5); Mean Corpuscular HGB CONC 32.5 g/dL (32.0-36.0); Mean Corpuscular Hemoglobin 26.6 pg (27.0-33.0); Mean Corpuscular Volume 82.1 fl (81.6-98.3); Mean Platelet Volume 9.8 fl (7.4-10.4); Platelet Count 179 10x3/uL (150-450); RBC Distribution Width 20.5 % (11.5-14.5); Red Blood Cell (RBC) Count 3.68 10x6/uL (3.90-5.03)
[2022-11-24] MEDS ORDERED: Magnesium 2 GM/50 ML(in water) 2 GM in Premix Bag 1 BAG IVPB SCH (08:00)
[2022-11-24] MEDS: Spironolactone 25 MG TAB PO SCH (08:21)
[2022-11-24] MEDS: Apixaban 5 MG TAB PO SCH (08:49)
[2022-11-24] MEDS: Atorvastatin Calcium 40 MG TAB PO SCH (08:49)
[2022-11-24] MEDS: Pramipexole Di-HCl 1 MG TAB PO SCH ×2 (08:50→15:25)
[2022-11-24] MEDS: Carvedilol 6.25 MG TAB PO SCH ×2 (08:50→17:00)
[2022-11-24] MEDS: pyridOXINE 50 MG (B6) TAB PO SCH (08:51)
[2022-11-24] MEDS: Sodium Chloride 0.65% Nasal 44 ML BOT EA NARE SCH ×2 (08:51→15:26)
[2022-11-24] MEDS ORDERED: Cefdinir 300 MG CAP PO SCH (09:00)
[2022-11-24] MEDS ORDERED: Famotidine 20 MG TAB PO SCH (09:00)
[2022-11-24] MEDS: Nystatin Powder 15 GM BOT TOP SCH (09:00)
[2022-11-24] MEDS ORDERED: Saccharomyces boulardii 250 MG CAP PO SCH (14:00)
[2022-11-24 17:09] VITALS: TEMP 97.6
[2022-11-24 20:56] VITALS: BP 108/66
== END 2022-11-24 19:20 | DRG 70 ==
LOC: CSHERS 16:05 → CSHICU 22:42 → CSHTELE 11-23 12:09
PROVIDERS: ADMIT Student in an Organized Health Care Education/Training Program; ATTEND Internal Medicine
PROC: 4A033R1 Measurement of Arterial Saturation, Peripheral, Percutaneous Approach (ICD-10-PCS; principal; 2022-11-19)
DX: G93.41 Metabolic encephalopathy (principal); I50.23 Acute on chronic systolic (congestive) heart failure; J96.01 Acute respiratory failure with hypoxia; R47.01 Aphasia; I48.20 Chronic atrial fibrillation, unspecified; N39.0 Urinary tract infection, site not specified; L97.829 Non-pressure chronic ulcer of other part of left lower leg with unspecified severity; L97.819 Non-pressure chronic ulcer of other part of right lower leg with unspecified severity; I13.0 Hypertensive heart and chronic kidney disease with heart failure and stage 1 through stage 4 chronic kidney disease, or unspecified chronic kidney disease; Z68.41 Body mass index [BMI] 40.0-44.9, adult; Z66 Do not resuscitate; E66.01 Morbid (severe) obesity due to excess calories; I08.2 Rheumatic disorders of both aortic and tricuspid valves; E87.6 Hypokalemia; E83.42 Hypomagnesemia; E11.622 Type 2 diabetes mellitus with other skin ulcer; N18.30 Chronic kidney disease, stage 3 unspecified; E11.22 Type 2 diabetes mellitus with diabetic chronic kidney disease; E89.0 Postprocedural hypothyroidism; E78.5 Hyperlipidemia, unspecified; D63.1 Anemia in chronic kidney disease; Z20.822 Contact with and (suspected) exposure to COVID-19; I87.8 Other specified disorders of veins; E04.1 Nontoxic single thyroid nodule; Z74.01 Bed confinement status; Z88.8 Allergy status to other drugs, medicaments and biological substances; Z91.040 Latex allergy status; Z91.013 Allergy to seafood; Z88.1 Allergy status to other antibiotic agents; Z79.899 Other long term (current) drug therapy; Z85.3 Personal history of malignant neoplasm of breast; Z98.51 Tubal ligation status; Z79.01 Long term (current) use of anticoagulants
CPT/HCPCS: 36415; 36416; 36600; 70450; 70496; 70498; 70551; 71045; 80048; 80053; 80306; 80307; 81003; 81015; 82140; 82550; 82805; 83690; 83735; 83880; 84100; 84439; 84443; 84484; 85025; 87077; 87086; 87186; 93005; 93306; 94660; 94760; 94762; 96374; 96375; 97139; 99285; J0696; J1200; J1650; J1815; J2930; J3475; J3490; J7620; P9047; Q9967; S0028; U0002

== ENCOUNTER 2023-02-16 10:54 | Inpatient (IN) | payer MEDICARE ==
[2023-02-16 11:29] LABS: #Basophils 0.1 10x3/uL (0.0-0.2); #Eosinphils 0.2 10x3/uL (0.0-0.5); #Monocytes 0.5 10x3/uL (0.0-1.1); #Neutrophils 5.1 10x3/uL (1.5-8.4); %Eosinophils 3.2 % (0.0-6.0); %Lymphocytes 5.9 % (18.0-47.0); %Monocytes 8.3 % (0.0-10.0); %Neutrophils 81.4 % (40.0-75.0); Hemoglobin 9.2 g/dL (12.0-15.5); Mean Corpuscular HGB CONC 32.9 g/dL (32.0-36.0); Mean Corpuscular Hemoglobin 27.7 pg (27.0-33.0); Mean Corpuscular Volume 84.3 fl (81.6-98.3); Mean Platelet Volume 9.6 fl (7.4-10.4); Platelet Count 161 10x3/uL (150-450); RBC Distribution Width 20.2 % (11.5-14.5); Red Blood Cell (RBC) Count 3.32 10x6/uL (3.90-5.03); White Blood Cell (WBC) Count 6.3 10x3/uL (3.5-10.5)
[2023-02-16 11:52] LABS: ALT (SGPT) 16 U/L (8-55); AST (SGOT) 31 U/L (5-34); Albumin 3.3 g/dL (3.4-4.8); Alkaline Phosphatase 254 U/L (40-110); Anion Gap 12 mmol/L (10-20); BUN (Urea Nitrogen) 30 mg/dL (9.8-20.1); Bilirubin, Total 2.7 mg/dL (0.2-1.2); CK (CPK) 26 U/L (29-168); Calc. Creatinine Clearance 0 mL/min (70-130); Calcium 8.9 mg/dL (7.8-10.44); Carbon Dioxide 28 mmol/L (23-31); Chloride 101 mmol/L (98-107); Estimated GFR 41; Globulin 3.3 g/dL (2.4-3.5); Glucose 117 mg/dL (83-110); Lipase 16 U/L (8-78); Magnesium 1.8 mg/dL (1.6-2.6); Potassium 3.8 mmol/L (3.5-5.1); Protein, Total 6.6 g/dL (5.8-8.1); Sodium 137 mmol/L (136-145)
[2023-02-16] MEDS ORDERED: Famotidine/PF 20 mg/2ml Vial ONE (12:42)
[2023-02-16] MEDS ORDERED: diphenhydrAMINE 50 MG/ML VIAL ONE (12:42)
[2023-02-16] MEDS ORDERED: methylPREDNISolone Sod Succ 40 MG VIAL ONE ×2 (12:43→18:48)
[2023-02-16] MEDS ORDERED: Morphine 2 MG/ML VIAL ONE (15:01)
[2023-02-16 15:04] LABS: Actual Bicarbonate (HCO3v) 29.2 mEq/L (22-28); Base Excess 3.3 mEq/L (-2 - +2); Calcium, Ionized (venous) 1.11 mmol/L (1.16-1.32); Chloride (VBG) 100 mmol/L (98-106); Hematocrit-VBG 31 % (36.0-47.0); Hemoglobin (Hb) 10.6 g/dL (11.7-16.1); Potassium (VBG) 3.98 mmol/L (3.70-5.30); Puncture Site Other Site; Sodium 136.7 mmol/L (133-146); pH (venous) 7.378 (7.32-7.43)
[2023-02-16] MEDS ORDERED: Ipratropium/Albuterol 3 ML NEB ONE (15:09)
[2023-02-16 15:18] LABS: Troponin I 0.012 ng/mL (< 0.028)
[2023-02-16] MEDS ORDERED: Acetaminophen 500 MG TAB ONE (15:37)
[2023-02-16] MEDS ORDERED: Metoprolol Tartrate 5 MG/5 ML VIAL ONE (15:38)
[2023-02-16] MEDS ORDERED: Vancomycin 1 GM VIAL ONE (16:22)
[2023-02-16] MEDS ORDERED: dilTIAZem 25 MG/5 ML VIAL ONE (16:22)
[2023-02-16] MEDS ORDERED: Senokot S 8.6-50 MG TAB PO PRN (16:55)
[2023-02-16] MEDS ORDERED: Calcium Carbonate 500 MG ChewTAB PO PRN (16:55)
[2023-02-16] MEDS ORDERED: Acetaminophen 325 MG TAB PO PRN (16:55)
[2023-02-16] MEDS ORDERED: Ondansetron PF 4 MG/2 ML Vial IVP PRN (16:55)
[2023-02-16] MEDS ORDERED: Bumetanide 1 MG/4 ML VIAL IVP SCH (17:00)
[2023-02-16] MEDS ORDERED: Metoprolol Tartrate 5 MG/5 ML VIAL IVP PRN (18:13)
[2023-02-16] MEDS ORDERED: Dextrose 5% in Water 1,000 ML IV PRN (18:19)
[2023-02-16] MEDS ORDERED: Glucagon 1 MG/ML KIT IM PRN (18:19)
[2023-02-16] MEDS ORDERED: Dextrose 50% Abboject 50 ML SYRINGE SLOW IVP PRN (18:19)
[2023-02-16] MEDS ORDERED: cefTRIAXone (ROCEPHIN) 2 GM VIAL ONE (18:48)
[2023-02-16] MEDS: methylPREDNISolone Sod Succ 40 MG VIAL IVP SCH (19:27)
[2023-02-16] MEDS ORDERED: Carvedilol 6.25 MG TAB PO SCH (20:00)
[2023-02-16] MEDS ORDERED: Metolazone 5 MG TAB PO SCH (20:00)
[2023-02-16] MEDS ORDERED: Famotidine 20 MG TAB PO SCH (21:00)
[2023-02-16] MEDS ORDERED: Apixaban 5 MG TAB ONE (21:27)
[2023-02-16] MEDS: Pramipexole Di-HCl 0.25 MG TAB PO SCH (21:29)
[2023-02-16] MEDS: Apixaban 5 MG TAB PO SCH (21:29)
[2023-02-16] MEDS: Ipratropium/Albuterol 3 ML NEB NEB PRN (23:57)
[2023-02-17 00:46] LABS: Bilirubin Neg (Negative); Blood, Urine 25 (Negative); Clarity Slightly Cloudy (Clear); Glucose, Urine (Dipstick) Normal (Negative); Ketone, Urine Negative (Negative); Leukocyte 500 (Negative); Nitrite Negative (Negative); Protein, Urine (Dipstick) 30 mg/dl (Neg-Trace)
[2023-02-17 00:56] LABS: Bacteria/HPF 1+ HPF (None Seen); CAUTI Indications for Culture Alt mental st,lethar
[2023-02-17 00:57] LABS: Urine Culture Reflex Yes Yes
[2023-02-17] MEDS: methylPREDNISolone Sod Succ 40 MG VIAL IVP SCH ×4 (01:56→20:44)
[2023-02-17] MEDS ORDERED: Hydrocortisone 1% Cream 30 GM TUBE TOP PRN (03:10)
[2023-02-17 05:43] LABS: ALT (SGPT) 16 U/L (8-55); AST (SGOT) 29 U/L (5-34); Albumin 3.2 g/dL (3.4-4.8); Alkaline Phosphatase 224 U/L (40-110); Anion Gap 13 mmol/L (10-20); BUN (Urea Nitrogen) 33 mg/dL (9.8-20.1); Bilirubin, Total 2.2 mg/dL (0.2-1.2); Calc. Creatinine Clearance 76 mL/min (70-130); Calcium 8.9 mg/dL (7.8-10.44); Carbon Dioxide 25 mmol/L (23-31); Chloride 102 mmol/L (98-107); Estimated GFR 38; Globulin 3.4 g/dL (2.4-3.5); Glucose 198 mg/dL (83-110); Magnesium 1.8 mg/dL (1.6-2.6); Potassium 3.7 mmol/L (3.5-5.1); Protein, Total 6.6 g/dL (5.8-8.1); Sodium 136 mmol/L (136-145)
[2023-02-17 06:26] LABS: Band 19 % (5-11); Hemoglobin 9.5 g/dL (12.0-15.5); Lymphocytes 1 % (21-51); Mean Corpuscular HGB CONC 32.4 g/dL (32.0-36.0); Mean Corpuscular Hemoglobin 27.5 pg (27.0-33.0); Mean Corpuscular Volume 84.7 fl (81.6-98.3); Mean Platelet Volume 9.7 fl (7.4-10.4); Monocytes 1 % (0-10); Platelet Count 151 10x3/uL (150-450); RBC Distribution Width 20.3 % (11.5-14.5); Red Blood Cell (RBC) Count 3.46 10x6/uL (3.90-5.03); White Blood Cell (WBC) Count 8.9 10x3/uL (3.5-10.5)
[2023-02-17 06:28] LABS: Hypochromia SLIGHT = 6-15 cells (100X) (0-5/hpf); MDiff Complete? YES; Neutrophil 79 % (42-75)
[2023-02-17 06:29] LABS: Elliptocytes SLIGHT = 2-5 cells (100X) (0-1/hpf); Platelet Adequacy Comment Appears Adequate
[2023-02-17] MEDS: Folic Acid 1 MG TAB PO SCH (08:50)
[2023-02-17] MEDS: Apixaban 5 MG TAB PO SCH ×2 (08:50→20:45)
[2023-02-17] MEDS: Atorvastatin Calcium 40 MG TAB PO SCH (08:50)
[2023-02-17] MEDS: Pramipexole Di-HCl 0.25 MG TAB PO SCH ×3 (08:50→20:45)
[2023-02-17] MEDS: Carvedilol 6.25 MG TAB PO SCH ×2 (08:50→16:56)
[2023-02-17] MEDS: Ipratropium/Albuterol 3 ML NEB NEB PRN (09:33)
[2023-02-17] MEDS ORDERED: Metolazone 5 MG TAB PO SCH (09:45)
[2023-02-17] MEDS: HumaLOG 300 UNITS/3 ML VIAL SC PRN ×2 (11:34→16:56)
[2023-02-17] MEDS ORDERED: Digoxin 0.125 MG TAB PO SCH (13:00)
[2023-02-17] MEDS ORDERED: cefTRIAXone\\ROCEPHIN 2 GM in Sodium Chloride 0.9% 100 ML IVPB SCH (18:00)
[2023-02-17] MEDS: cefTRIAXone\\ROCEPHIN 2 GM in Sodium Chloride 0.9% 100 ML IVPB SCH (20:44)
[2023-02-17] MEDS: Famotidine 20 MG TAB PO SCH (20:45)
[2023-02-18] MEDS: methylPREDNISolone Sod Succ 40 MG VIAL IVP SCH ×3 (02:55→21:16)
[2023-02-18 05:12] LABS: #Eosinphils 0.2 10x3/uL (0.0-0.5); #Monocytes 0.2 10x3/uL (0.0-1.1); #Neutrophils 7.1 10x3/uL (1.5-8.4); %Eosinophils 2.1 % (0.0-6.0); %Lymphocytes 3.5 % (18.0-47.0); %Monocytes 2.6 % (0.0-10.0); %Neutrophils 91.7 % (40.0-75.0); Hemoglobin 9.7 g/dL (12.0-15.5); Mean Corpuscular HGB CONC 32.8 g/dL (32.0-36.0); Mean Corpuscular Hemoglobin 27.4 pg (27.0-33.0); Mean Corpuscular Volume 83.6 fl (81.6-98.3); Mean Platelet Volume 10.5 fl (7.4-10.4); Platelet Count 154 10x3/uL (150-450); RBC Distribution Width 20.3 % (11.5-14.5); Red Blood Cell (RBC) Count 3.54 10x6/uL (3.90-5.03); White Blood Cell (WBC) Count 7.7 10x3/uL (3.5-10.5)
[2023-02-18 05:26] LABS: Anion Gap 15 mmol/L (10-20); BUN (Urea Nitrogen) 43 mg/dL (9.8-20.1); Calc. Creatinine Clearance 69 mL/min (70-130); Calcium 8.9 mg/dL (7.8-10.44); Carbon Dioxide 23 mmol/L (23-31); Chloride 101 mmol/L (98-107); Estimated GFR 36; Glucose 168 mg/dL (83-110); Magnesium 1.9 mg/dL (1.6-2.6); Potassium 3.8 mmol/L (3.5-5.1); Sodium 135 mmol/L (136-145)
[2023-02-18] MEDS ORDERED: Magnesium 2 GM/50 ML(in water) 2 GM in Premix Bag 1 BAG IVPB SCH (08:15)
[2023-02-18] MEDS: Atorvastatin Calcium 40 MG TAB PO SCH (09:50)
[2023-02-18] MEDS: Pramipexole Di-HCl 0.25 MG TAB PO SCH ×3 (09:50→21:15)
[2023-02-18] MEDS: Digoxin 0.125 MG TAB PO SCH (09:50)
[2023-02-18] MEDS: Carvedilol 6.25 MG TAB PO SCH ×2 (09:51→16:37)
[2023-02-18] MEDS: Folic Acid 1 MG TAB PO SCH (09:51)
[2023-02-18] MEDS: Apixaban 5 MG TAB PO SCH ×2 (09:51→21:15)
[2023-02-18] MEDS: HumaLOG 300 UNITS/3 ML VIAL SC PRN ×2 (13:35→16:39)
[2023-02-18] MEDS: Metolazone 2.5 MG TAB PO SCH (16:37)
[2023-02-18] MEDS: cefTRIAXone\\ROCEPHIN 2 GM in Sodium Chloride 0.9% 100 ML IVPB SCH (21:11)
[2023-02-18] MEDS: Famotidine 20 MG TAB PO SCH (21:15)
[2023-02-18] MEDS: Clindamycin/D5W 900 MG in Premix Bag 1 BAG IVPB SCH (21:16)
[2023-02-19] MEDS: Ipratropium/Albuterol 3 ML NEB NEB PRN (04:41)
[2023-02-19] MEDS: Clindamycin/D5W 900 MG in Premix Bag 1 BAG IVPB SCH ×3 (06:03→22:30)
[2023-02-19 09:49] LABS: Anion Gap 13 mmol/L (10-20); BUN (Urea Nitrogen) 51 mg/dL (9.8-20.1); Calc. Creatinine Clearance 70 mL/min (70-130); Calcium 8.7 mg/dL (7.8-10.44); Carbon Dioxide 25 mmol/L (23-31); Chloride 99 mmol/L (98-107); Estimated GFR 35; Glucose 204 mg/dL (83-110); Potassium 3.9 mmol/L (3.5-5.1); Sodium 133 mmol/L (136-145)
[2023-02-19] MEDS: Apixaban 5 MG TAB PO SCH ×2 (10:05→22:30)
[2023-02-19] MEDS: Atorvastatin Calcium 40 MG TAB PO SCH (10:05)
[2023-02-19] MEDS: Folic Acid 1 MG TAB PO SCH (10:05)
[2023-02-19] MEDS: Carvedilol 6.25 MG TAB PO SCH ×2 (10:05→16:22)
[2023-02-19] MEDS: Pramipexole Di-HCl 0.25 MG TAB PO SCH ×3 (10:05→22:29)
[2023-02-19] MEDS: methylPREDNISolone Sod Succ 40 MG VIAL IVP SCH (10:05)
[2023-02-19] MEDS: Digoxin 0.125 MG TAB PO SCH (10:06)
[2023-02-19] MEDS: HumaLOG 300 UNITS/3 ML VIAL SC PRN ×2 (13:01→16:25)
[2023-02-19] MEDS: cefTRIAXone\\ROCEPHIN 2 GM in Sodium Chloride 0.9% 100 ML IVPB SCH (22:29)
[2023-02-19] MEDS: Famotidine 20 MG TAB PO SCH (22:30)
[2023-02-20] MEDS: Ipratropium/Albuterol 3 ML NEB NEB PRN (00:47)
[2023-02-20] MEDS: Clindamycin/D5W 900 MG in Premix Bag 1 BAG IVPB SCH ×2 (06:29→15:27)
[2023-02-20 06:59] LABS: #Monocytes 0.5 10x3/uL (0.0-1.1); #Neutrophils 4.8 10x3/uL (1.5-8.4); %Lymphocytes 4.6 % (18.0-47.0); %Monocytes 9.4 % (0.0-10.0); %Neutrophils 85.6 % (40.0-75.0); Mean Corpuscular Hemoglobin 27.5 pg (27.0-33.0); Mean Corpuscular Volume 83.5 fl (81.6-98.3); Mean Platelet Volume 10.1 fl (7.4-10.4); Platelet Count 146 10x3/uL (150-450); Red Blood Cell (RBC) Count 3.63 10x6/uL (3.90-5.03); White Blood Cell (WBC) Count 5.6 10x3/uL (3.5-10.5)
[2023-02-20 07:12] LABS: Anion Gap 16 mmol/L (10-20); BUN (Urea Nitrogen) 54 mg/dL (9.8-20.1); Calc. Creatinine Clearance 66 mL/min (70-130); Calcium 8.5 mg/dL (7.8-10.44); Carbon Dioxide 24 mmol/L (23-31); Chloride 99 mmol/L (98-107); Estimated GFR 33; Glucose 144 mg/dL (83-110); Potassium 4.3 mmol/L (3.5-5.1); Sodium 135 mmol/L (136-145)
[2023-02-20] MEDS ORDERED: Carvedilol 6.25 MG TAB ONE (11:07)
[2023-02-20] MEDS: Apixaban 5 MG TAB PO SCH (11:21)
[2023-02-20] MEDS: Folic Acid 1 MG TAB PO SCH (11:21)
[2023-02-20] MEDS: Carvedilol 6.25 MG TAB PO SCH ×2 (11:22→16:49)
[2023-02-20] MEDS: Atorvastatin Calcium 40 MG TAB PO SCH (11:22)
[2023-02-20] MEDS: predniSONE 20 MG TAB PO SCH (11:22)
[2023-02-20] MEDS: Pramipexole Di-HCl 0.25 MG TAB PO SCH ×2 (11:30→15:30)
[2023-02-20] MEDS: Metolazone 2.5 MG TAB PO SCH (16:49)
[2023-02-20] MEDS: HumaLOG 300 UNITS/3 ML VIAL SC PRN (17:35)
[2023-02-21] MEDS: Pramipexole Di-HCl 0.25 MG TAB PO SCH ×4 (00:05→21:07)
[2023-02-21] MEDS: cefTRIAXone\\ROCEPHIN 2 GM in Sodium Chloride 0.9% 100 ML IVPB SCH ×2 (00:05→21:08)
[2023-02-21] MEDS: Famotidine 20 MG TAB PO SCH ×2 (00:06→21:07)
[2023-02-21] MEDS: Apixaban 5 MG TAB PO SCH ×3 (00:06→21:07)
[2023-02-21] MEDS: Clindamycin/D5W 900 MG in Premix Bag 1 BAG IVPB SCH ×4 (00:06→22:40)
[2023-02-21] MEDS: HumaLOG 300 UNITS/3 ML VIAL SC PRN (00:13)
[2023-02-21 05:58] LABS: Hemoglobin 9.9 g/dL (12.0-15.5); MDiff Complete? YES; Mean Corpuscular HGB CONC 32.7 g/dL (32.0-36.0); Mean Corpuscular Hemoglobin 27.3 pg (27.0-33.0); Mean Corpuscular Volume 83.5 fl (81.6-98.3); Mean Platelet Volume 10.5 fl (7.4-10.4); Platelet Count 152 10x3/uL (150-450); RBC Distribution Width 19.9 % (11.5-14.5); Red Blood Cell (RBC) Count 3.63 10x6/uL (3.90-5.03); White Blood Cell (WBC) Count 4.6 10x3/uL (3.5-10.5)
[2023-02-21 06:13] LABS: Anion Gap 14 mmol/L (10-20); BUN (Urea Nitrogen) 57 mg/dL (9.8-20.1); Calc. Creatinine Clearance 68 mL/min (70-130); Calcium 8.5 mg/dL (7.8-10.44); Carbon Dioxide 26 mmol/L (23-31); Chloride 100 mmol/L (98-107); Estimated GFR 34; Glucose 113 mg/dL (83-110); Potassium 4.2 mmol/L (3.5-5.1); Sodium 136 mmol/L (136-145)
[2023-02-21 06:18] LABS: Anisocytosis SLIGHT = 6-15 cells (100X) (0-5/hpf); Band 3 % (5-11); Hypochromia SLIGHT = 6-15 cells (100X) (0-5/hpf); Lymphocytes 9 % (21-51); Monocytes 9 % (0-10); Neutrophil 79 % (42-75); Ovalocytes SLIGHT = 2-5 cells (100X) (0-1/hpf)
[2023-02-21 06:19] LABS: Platelet Adequacy Comment Appears Adequate
[2023-02-21] MEDS: Ipratropium/Albuterol 3 ML NEB NEB PRN (07:10)
[2023-02-21] MEDS: Atorvastatin Calcium 40 MG TAB PO SCH (08:59)
[2023-02-21] MEDS: Folic Acid 1 MG TAB PO SCH (09:00)
[2023-02-21] MEDS: Carvedilol 6.25 MG TAB PO SCH ×2 (09:00→16:46)
[2023-02-21] MEDS: predniSONE 20 MG TAB PO SCH (09:03)
[2023-02-22 05:43] LABS: Hemoglobin 9.6 g/dL (12.0-15.5); Mean Corpuscular HGB CONC 32.5 g/dL (32.0-36.0); Mean Corpuscular Hemoglobin 27.1 pg (27.0-33.0); Mean Corpuscular Volume 83.3 fl (81.6-98.3); Mean Platelet Volume 10.3 fl (7.4-10.4); Platelet Count 143 10x3/uL (150-450); RBC Distribution Width 19.9 % (11.5-14.5); Red Blood Cell (RBC) Count 3.54 10x6/uL (3.90-5.03)
[2023-02-22 05:44] LABS: MDiff Complete? YES
[2023-02-22 05:59] LABS: Anion Gap 15 mmol/L (10-20); BUN (Urea Nitrogen) 57 mg/dL (9.8-20.1); Calc. Creatinine Clearance 75 mL/min (70-130); Calcium 8.4 mg/dL (7.8-10.44); Carbon Dioxide 26 mmol/L (23-31); Chloride 98 mmol/L (98-107); Estimated GFR 38; Glucose 112 mg/dL (83-110); Potassium 4.3 mmol/L (3.5-5.1); Sodium 135 mmol/L (136-145)
[2023-02-22 06:16] LABS: Band 1 % (5-11); Eosinophils 5 % (0-10); Lymphocytes 13 % (21-51); Monocytes 5 % (0-10); Neutrophil 75 % (42-75); Reactive Lymphocytes 1 % (0-10)
[2023-02-22 06:17] LABS: Anisocytosis SLIGHT = 6-15 cells (100X) (0-5/hpf); Hypochromia SLIGHT = 6-15 cells (100X) (0-5/hpf); Ovalocytes SLIGHT = 2-5 cells (100X) (0-1/hpf); Tear Drops SLIGHT = 2-5 cells (100X) (0-1/hpf)
[2023-02-22 06:18] LABS: Platelet Adequacy Comment Appears Decreased
[2023-02-22] MEDS: Clindamycin/D5W 900 MG in Premix Bag 1 BAG IVPB SCH ×3 (06:24→21:54)
[2023-02-22] MEDS: Pramipexole Di-HCl 0.25 MG TAB PO SCH ×3 (11:01→21:57)
[2023-02-22] MEDS: Atorvastatin Calcium 40 MG TAB PO SCH (11:02)
[2023-02-22] MEDS: Apixaban 5 MG TAB PO SCH ×2 (11:02→21:58)
[2023-02-22] MEDS: Carvedilol 6.25 MG TAB PO SCH ×2 (11:02→17:33)
[2023-02-22] MEDS: Folic Acid 1 MG TAB PO SCH (11:02)
[2023-02-22] MEDS: predniSONE 20 MG TAB PO SCH (11:02)
[2023-02-22] MEDS: Famotidine 20 MG TAB PO SCH ×2 (11:03→21:57)
[2023-02-22] MEDS: HumaLOG 300 UNITS/3 ML VIAL SC PRN (17:25)
[2023-02-22] MEDS: Metolazone 2.5 MG TAB PO SCH (17:33)
[2023-02-22] MEDS: cefTRIAXone\\ROCEPHIN 2 GM in Sodium Chloride 0.9% 100 ML IVPB SCH (21:25)
[2023-02-23] MEDS: Clindamycin/D5W 900 MG in Premix Bag 1 BAG IVPB SCH (06:17)
[2023-02-23] MEDS: Famotidine 20 MG TAB PO SCH ×2 (08:19→20:24)
[2023-02-23] MEDS: Pramipexole Di-HCl 0.25 MG TAB PO SCH ×3 (08:19→20:23)
[2023-02-23] MEDS: Atorvastatin Calcium 40 MG TAB PO SCH (08:19)
[2023-02-23] MEDS: Folic Acid 1 MG TAB PO SCH (08:19)
[2023-02-23] MEDS: Apixaban 5 MG TAB PO SCH ×2 (08:19→20:23)
[2023-02-23] MEDS: Carvedilol 6.25 MG TAB PO SCH ×2 (08:19→17:46)
[2023-02-23] MEDS: predniSONE 20 MG TAB PO SCH (08:19)
[2023-02-23] MEDS: HumaLOG 300 UNITS/3 ML VIAL SC PRN ×2 (11:30→20:30)
[2023-02-23] MEDS: cefTRIAXone\\ROCEPHIN 2 GM in Sodium Chloride 0.9% 100 ML IVPB SCH (20:22)
[2023-02-24 08:12] LABS: #Eosinphils 0.3 10x3/uL (0.0-0.5); #Monocytes 0.7 10x3/uL (0.0-1.1); #Neutrophils 3.7 10x3/uL (1.5-8.4); %Basophils 0.2 % (0.0-2.0); %Eosinophils 5.6 % (0.0-6.0); %Lymphocytes 11.3 % (18.0-47.0); %Monocytes 13.5 % (0.0-10.0); Hemoglobin 10.4 g/dL (12.0-15.5); Mean Corpuscular HGB CONC 34.1 g/dL (32.0-36.0); Mean Corpuscular Hemoglobin 27.6 pg (27.0-33.0); Mean Corpuscular Volume 80.9 fl (81.6-98.3); Mean Platelet Volume 11.3 fl (7.4-10.4); Platelet Count 149 10x3/uL (150-450); RBC Distribution Width 19.7 % (11.5-14.5); Red Blood Cell (RBC) Count 3.77 10x6/uL (3.90-5.03); White Blood Cell (WBC) Count 5.3 10x3/uL (3.5-10.5)
[2023-02-24 08:18] LABS: Anion Gap 10 mmol/L (10-20); BUN (Urea Nitrogen) 50 mg/dL (9.8-20.1); Calc. Creatinine Clearance 88 mL/min (70-130); Calcium 8.8 mg/dL (7.8-10.44); Carbon Dioxide 31 mmol/L (23-31); Chloride 98 mmol/L (98-107); Estimated GFR 46; Glucose 108 mg/dL (83-110); Potassium 3.9 mmol/L (3.5-5.1); Sodium 135 mmol/L (136-145)
[2023-02-24] MEDS: Apixaban 5 MG TAB PO SCH ×2 (09:02→20:37)
[2023-02-24] MEDS: predniSONE 20 MG TAB PO SCH (09:02)
[2023-02-24] MEDS: Folic Acid 1 MG TAB PO SCH (09:02)
[2023-02-24] MEDS: Famotidine 20 MG TAB PO SCH ×2 (09:02→20:37)
[2023-02-24] MEDS: Carvedilol 6.25 MG TAB PO SCH ×2 (09:02→15:31)
[2023-02-24] MEDS: Atorvastatin Calcium 40 MG TAB PO SCH (09:02)
[2023-02-24] MEDS: Pramipexole Di-HCl 0.25 MG TAB PO SCH ×3 (09:02→20:37)
[2023-02-24] MEDS: Metolazone 2.5 MG TAB PO SCH (15:31)
[2023-02-24] MEDS: cefTRIAXone\\ROCEPHIN 2 GM in Sodium Chloride 0.9% 100 ML IVPB SCH (20:37)
[2023-02-25] MEDS: Apixaban 5 MG TAB PO SCH (09:10)
[2023-02-25] MEDS: Folic Acid 1 MG TAB PO SCH (09:11)
[2023-02-25] MEDS: predniSONE 20 MG TAB PO SCH (09:11)
[2023-02-25] MEDS: Famotidine 20 MG TAB PO SCH (09:11)
[2023-02-25] MEDS: Carvedilol 6.25 MG TAB PO SCH ×2 (09:11→18:02)
[2023-02-25] MEDS: Pramipexole Di-HCl 0.25 MG TAB PO SCH ×2 (09:12→15:17)
[2023-02-25] MEDS: Atorvastatin Calcium 40 MG TAB PO SCH (09:12)
[2023-02-25] MEDS ORDERED: Nystatin Powder 15 GM BOT TOP PRN (12:03)
[2023-02-25 13:46] VITALS: BMI 48.0
[2023-02-25 18:04] VITALS: BP 117/71; TEMP 97.5
== END 2023-02-25 18:30 | DRG 291 ==
LOC: SUATTDRO 10:54 → CSHERS 10:54 → INTOOBSV 17:01 → CSHERHOLD 17:01 → CSHTELE 22:27 → OBSVTOIN 02-18 14:34
PROVIDERS: ADMIT Internal Medicine; ATTEND Internal Medicine
PROC: 4A133R1 Monitoring of Arterial Saturation, Peripheral, Percutaneous Approach (ICD-10-PCS; 2023-02-16)
PROC: 5A09357 Assistance with Respiratory Ventilation, Less than 24 Consecutive Hours, Continuous Positive Airway Pressure (ICD-10-PCS; 2023-02-20)
PROC: 02HV33Z Insertion of Infusion Device into Superior Vena Cava, Percutaneous Approach (ICD-10-PCS; principal; 2023-02-25)
PROC: B518ZZA Fluoroscopy of Superior Vena Cava, Guidance (ICD-10-PCS; 2023-02-25)
DX: I13.0 Hypertensive heart and chronic kidney disease with heart failure and stage 1 through stage 4 chronic kidney disease, or unspecified chronic kidney disease (principal); I50.43 Acute on chronic combined systolic (congestive) and diastolic (congestive) heart failure; J96.01 Acute respiratory failure with hypoxia; R78.81 Bacteremia; I48.11 Longstanding persistent atrial fibrillation; N17.9 Acute kidney failure, unspecified; L97.919 Non-pressure chronic ulcer of unspecified part of right lower leg with unspecified severity; L03.115 Cellulitis of right lower limb; Z68.42 Body mass index [BMI] 45.0-49.9, adult; E11.22 Type 2 diabetes mellitus with diabetic chronic kidney disease; N18.30 Chronic kidney disease, stage 3 unspecified; G25.81 Restless legs syndrome; E78.5 Hyperlipidemia, unspecified; B95.5 Unspecified streptococcus as the cause of diseases classified elsewhere; L53.9 Erythematous condition, unspecified; E66.01 Morbid (severe) obesity due to excess calories; G24.3 Spasmodic torticollis; E83.42 Hypomagnesemia; E87.6 Hypokalemia; G47.10 Hypersomnia, unspecified; Z91.013 Allergy to seafood; Z91.040 Latex allergy status; Z88.8 Allergy status to other drugs, medicaments and biological substances; Z88.1 Allergy status to other antibiotic agents; Z79.2 Long term (current) use of antibiotics; Z79.899 Other long term (current) drug therapy; Z90.89 Acquired absence of other organs; Z98.890 Other specified postprocedural states; Z85.3 Personal history of malignant neoplasm of breast; D63.1 Anemia in chronic kidney disease
CPT/HCPCS: 36415; 36416; 36569; 71275; 80048; 80053; 81001; 82550; 82805; 83605; 83690; 83735; 83880; 84145; 84484; 85025; 85379; 86140; 87040; 87077; 87086; 87149; 87186; 93005; 93306; 93970; 94640; 94660; 94760; 94762; 94799; 96374; 96375; 96376; 97139; C1751; G0378; J0696; J1200; J1815; J2272; J2920; J3370; J3475; J3490; J7512; J7620; Q9967; S0028

== ENCOUNTER 2023-03-01 18:41 | Emergency (ER) | payer MEDICARE ==
[2023-03-01 20:41] LABS: INR-International Normal Ratio 1.2; PTT 32.7 sec (22.0-33.0); Prothrombin Time 12.7 sec (9.5-12.1)
[2023-03-01 20:42] LABS: ALT (SGPT) 31 U/L (8-55); AST (SGOT) 37 U/L (5-34); Albumin 3.2 g/dL (3.4-4.8); Alkaline Phosphatase 239 U/L (40-110); Anion Gap 12 mmol/L (10-20); BUN (Urea Nitrogen) 30 mg/dL (9.8-20.1); Bilirubin, Total 1.6 mg/dL (0.2-1.2); Calc. Creatinine Clearance 0 mL/min (70-130); Carbon Dioxide 32 mmol/L (23-31); Chloride 101 mmol/L (98-107); Estimated GFR 61; Globulin 3.3 g/dL (2.4-3.5); Glucose 124 mg/dL (83-110); Protein, Total 6.5 g/dL (5.8-8.1); Sodium 141 mmol/L (136-145)
[2023-03-01 20:44] LABS: #Eosinphils 0.4 10x3/uL (0.0-0.5); #Monocytes 0.6 10x3/uL (0.0-1.1); #Neutrophils 2.8 10x3/uL (1.5-8.4); %Basophils 0.9 % (0.0-2.0); %Eosinophils 7.9 % (0.0-6.0); %Lymphocytes 12.7 % (18.0-47.0); %Monocytes 14.3 % (0.0-10.0); Hemoglobin 9.5 g/dL (12.0-15.5); Mean Corpuscular HGB CONC 32.1 g/dL (32.0-36.0); Mean Corpuscular Hemoglobin 26.9 pg (27.0-33.0); Mean Corpuscular Volume 83.9 fl (81.6-98.3); Mean Platelet Volume 10.5 fl (7.4-10.4); Platelet Count 131 10x3/uL (150-450); RBC Distribution Width 20.1 % (11.5-14.5); Red Blood Cell (RBC) Count 3.53 10x6/uL (3.90-5.03); White Blood Cell (WBC) Count 4.4 10x3/uL (3.5-10.5)
== END 2023-03-01 21:51 | disposition home or self-care (01) ==
LOC: CSHERS 18:41
DX: R22.32 Localized swelling, mass and lump, left upper limb (principal); E78.5 Hyperlipidemia, unspecified; I13.0 Hypertensive heart and chronic kidney disease with heart failure and stage 1 through stage 4 chronic kidney disease, or unspecified chronic kidney disease; I50.9 Heart failure, unspecified; N18.9 Chronic kidney disease, unspecified; E11.9 Type 2 diabetes mellitus without complications
CPT/HCPCS: 36415; 80053; 85025; 85610; 85730

== ENCOUNTER 2023-03-23 15:47 | Inpatient (IN) | payer MEDICARE ==
[2023-03-23 17:31] LABS: Hematocrit 28.3 % (34.9-44.5); Hemoglobin 8.8 g/dL (12.0-15.5); Mean Corpuscular HGB CONC 31.1 g/dL (32.0-36.0); Mean Corpuscular Hemoglobin 26.8 pg (27.0-33.0); Mean Corpuscular Volume 86.3 fl (81.6-98.3); Mean Platelet Volume 10.7 fl (7.4-10.4); Platelet Count 145 10x3/uL (150-450); RBC Distribution Width 20.6 % (11.5-14.5); Red Blood Cell (RBC) Count 3.28 10x6/uL (3.90-5.03); White Blood Cell (WBC) Count 2.4 10x3/uL (3.5-10.5)
[2023-03-23 17:32] LABS: ALT (SGPT) 20 U/L (8-55); AST (SGOT) 41 U/L (5-34); Alkaline Phosphatase 271 U/L (40-110); Anion Gap 14 mmol/L (10-20); BUN (Urea Nitrogen) 37 mg/dL (9.8-20.1); Bilirubin, Total 2.1 mg/dL (0.2-1.2); Calc. Creatinine Clearance 0 mL/min (70-130); Calcium 8.7 mg/dL (7.8-10.44); Carbon Dioxide 22 mmol/L (23-31); Chloride 101 mmol/L (98-107); Estimated GFR 35; Globulin 3.5 g/dL (2.4-3.5); Glucose 116 mg/dL (83-110); Potassium 4.4 mmol/L (3.5-5.1); Protein, Total 6.5 g/dL (5.8-8.1); Sodium 133 mmol/L (136-145)
[2023-03-23 17:57] LABS: Band 2 % (5-11); Eosinophils 8 % (0-10); Lymphocytes 12 % (21-51); Monocytes 16 % (0-10)
[2023-03-23 17:58] LABS: Anisocytosis SLIGHT = 6-15 cells (100X) (0-5/hpf); Microcytosis SLIGHT = 6-15 cells (100X) (0-5/hpf); Poikilocytosis SLIGHT = 6-15 cells (100X) (0-5/hpf)
[2023-03-23 17:59] LABS: Elliptocytes SLIGHT = 2-5 cells (100X) (0-1/hpf); Ovalocytes SLIGHT = 2-5 cells (100X) (0-1/hpf); Polychromasia SLIGHT = 2-3 cells (100X) (0-2/hpf)
[2023-03-23 18:00] LABS: Hypochromia SLIGHT = 6-15 cells (100X) (0-5/hpf); Large Platelets SLIGHT (None Seen); Platelet Adequacy Comment Appears Adequate
[2023-03-23 18:01] LABS: Burr Cells SLIGHT = 2-5 cells (100X) (0-1/hpf)
[2023-03-23 18:02] LABS: MDiff Complete? YES; Neutrophil 55 % (42-75)
[2023-03-23] MEDS ORDERED: traMADol HCl 50 MG TAB PO PRN ×2 (19:56)
[2023-03-23] MEDS ORDERED: Albumin 25% 100 ML ONE (19:57)
[2023-03-23] MEDS ORDERED: Milk Of Magnesia 30 ML UDCUP PO PRN (19:58)
[2023-03-23] MEDS ORDERED: Ondansetron ODT 4 MG TAB PO PRN (19:58)
[2023-03-23] MEDS ORDERED: Metolazone 5 MG TAB PO SCH (20:00)
[2023-03-23] MEDS ORDERED: HumaLOG 300 UNITS/3 ML VIAL SC PRN (20:00)
[2023-03-23] MEDS ORDERED: Spironolactone 25 MG TAB PO SCH (20:00)
[2023-03-23] MEDS ORDERED: Ipratropium/Albuterol 3 ML NEB NEB SCH (20:00)
[2023-03-23] MEDS ORDERED: Dextrose 5% in Water 1,000 ML IV PRN (20:00)
[2023-03-23] MEDS ORDERED: Dextrose 50% Abboject 50 ML SYRINGE SLOW IVP PRN (20:00)
[2023-03-23] MEDS ORDERED: Glucagon 1 MG/ML KIT IM PRN (20:00)
[2023-03-23] MEDS ORDERED: Nystatin Powder 15 GM BOT TOP SCH (21:00)
[2023-03-23] MEDS ORDERED: Famotidine 20 MG TAB PO SCH (21:00)
[2023-03-23] MEDS: Pramipexole Di-HCl 1 MG TAB PO SCH (22:24)
[2023-03-23] MEDS: Apixaban 5 MG TAB PO SCH (22:25)
[2023-03-23] MEDS: Multivit, Therapeutic 1 TAB PO SCH (22:25)
[2023-03-23] MEDS: Acetaminophen 325 MG TAB PO PRN (22:28)
[2023-03-23] MEDS ORDERED: acetaZOLAMIDE Sodium 500 mg Vial IVP SCH (22:30)
[2023-03-23] MEDS ORDERED: Nystatin Cream 15 GM TUBE TOP SCH (22:30)
[2023-03-23] MEDS ORDERED: Sterile Water 10 ML ONE (22:42)
[2023-03-24] MEDS: Ipratropium/Albuterol 3 ML NEB NEB PRN ×3 (03:43→21:05)
[2023-03-24 04:01] VITALS: BMI 54.1
[2023-03-24 04:18] LABS: Hematocrit 28.6 % (34.9-44.5); Hemoglobin 8.8 g/dL (12.0-15.5); Mean Corpuscular HGB CONC 30.8 g/dL (32.0-36.0); Mean Corpuscular Hemoglobin 26.9 pg (27.0-33.0); Mean Corpuscular Volume 87.5 fl (81.6-98.3); Mean Platelet Volume 10.5 fl (7.4-10.4); Platelet Count 145 10x3/uL (150-450); RBC Distribution Width 20.6 % (11.5-14.5); Red Blood Cell (RBC) Count 3.27 10x6/uL (3.90-5.03); White Blood Cell (WBC) Count 2.3 10x3/uL (3.5-10.5)
[2023-03-24 04:36] LABS: ALT (SGPT) 19 U/L (8-55); AST (SGOT) 41 U/L (5-34); Albumin 3.3 g/dL (3.4-4.8); Alkaline Phosphatase 278 U/L (40-110); Anion Gap 14 mmol/L (10-20); BUN (Urea Nitrogen) 38 mg/dL (9.8-20.1); Bilirubin, Total 2.2 mg/dL (0.2-1.2); Calc. Creatinine Clearance 79 mL/min (70-130); Calcium 8.6 mg/dL (7.8-10.44); Carbon Dioxide 25 mmol/L (23-31); Chloride 99 mmol/L (98-107); Estimated GFR 34; Globulin 3.3 g/dL (2.4-3.5); Glucose 94 mg/dL (83-110); Potassium 4.5 mmol/L (3.5-5.1); Protein, Total 6.6 g/dL (5.8-8.1); Sodium 133 mmol/L (136-145)
[2023-03-24 05:18] LABS: MDiff Complete? YES; Platelet Adequacy Comment Appears Adequate
[2023-03-24 05:19] LABS: RBC Morph Comment Within Normal Limits
[2023-03-24 05:22] LABS: Band 4 % (5-11); Eosinophils 8 % (0-10); Lymphocytes 25 % (21-51); Metamyelocyte 1 % (0-0); Monocytes 21 % (0-10); Neutrophil 41 % (42-75)
[2023-03-24] MEDS: Folic Acid 1 MG TAB PO SCH (08:33)
[2023-03-24] MEDS: Apixaban 5 MG TAB PO SCH ×2 (08:33→21:15)
[2023-03-24] MEDS: Cholecalciferol 1,000 UNITS (25 MCG) TAB PO SCH (08:33)
[2023-03-24] MEDS: Cyanocobalamin (Vitamin B-12) 1,000 MCG TAB PO SCH (08:33)
[2023-03-24] MEDS: Spironolactone 25 MG TAB PO SCH (08:34)
[2023-03-24] MEDS: Metolazone 5 MG TAB PO SCH (08:34)
[2023-03-24] MEDS: Pramipexole Di-HCl 1 MG TAB PO SCH ×3 (08:35→21:16)
[2023-03-24] MEDS: Atorvastatin Calcium 40 MG TAB PO SCH (08:35)
[2023-03-24] MEDS: Nystatin Cream 15 GM TUBE TOP SCH ×2 (08:45→21:16)
[2023-03-24] MEDS ORDERED: Albumin 25% 25 GM/100 ML BOT IVPB SCH (12:30)
[2023-03-24] MEDS: Acetaminophen 325 MG TAB PO PRN (13:15)
[2023-03-24 13:56] LABS: Bilirubin 1+ (Negative); Blood, Urine 250 (Negative); Glucose, Urine (Dipstick) Normal (Negative); Ketone, Urine 5 mg/dL (Negative); Leukocyte 100 (Negative); Nitrite Negative (Negative); Protein, Urine (Dipstick) 30 mg/dl (Neg-Trace)
[2023-03-24 14:02] LABS: Clarity Slightly Cloudy (Clear)
[2023-03-24 14:07] LABS: Renal Epithelial 0-3 HPF (None Seen)
[2023-03-24 14:09] LABS: Bacteria/HPF 3+ HPF (None Seen); Mucous/LPF 2+ LPF (<2+)
[2023-03-24 14:11] LABS: Calcium Oxalate Crystals Rare HPF (None Seen)
[2023-03-24 14:33] LABS: INR-International Normal Ratio 1.5; PTT 47.6 sec (22.0-33.0); Prothrombin Time 15.6 sec (9.5-12.1)
[2023-03-24 14:36] LABS: Phosphorus 3.9 mg/dL (2.3-4.7)
[2023-03-24] MEDS ORDERED: Famotidine 20 MG TAB PO SCH (21:00)
[2023-03-24] MEDS: Multivit, Therapeutic 1 TAB PO SCH (21:16)
[2023-03-24] MEDS ORDERED: Ipratropium/Albuterol 3 ML NEB NEB PRN (21:35)
[2023-03-24] MEDS ORDERED: Ipratropium/Albuterol 3 ML NEB NEB SCH (22:00)
[2023-03-24] MEDS ORDERED: methylPREDNISolone Sod Succ/PF 125 MG/2 ML VIAL IVP SCH (22:00)
[2023-03-24 22:06] LABS: Hematocrit 28.3 % (34.9-44.5); Hemoglobin 8.7 g/dL (12.0-15.5); Mean Corpuscular HGB CONC 30.7 g/dL (32.0-36.0); Mean Corpuscular Volume 87.9 fl (81.6-98.3); Mean Platelet Volume 10.4 fl (7.4-10.4); Platelet Count 146 10x3/uL (150-450); RBC Distribution Width 20.6 % (11.5-14.5); Red Blood Cell (RBC) Count 3.22 10x6/uL (3.90-5.03); White Blood Cell (WBC) Count 2.3 10x3/uL (3.5-10.5)
[2023-03-24 22:07] LABS: MDiff Complete? YES
[2023-03-24 22:22] LABS: Anion Gap 15 mmol/L (10-20); BUN (Urea Nitrogen) 40 mg/dL (9.8-20.1); Calc. Creatinine Clearance 72 mL/min (70-130); Calcium 8.7 mg/dL (7.8-10.44); Carbon Dioxide 26 mmol/L (23-31); Chloride 100 mmol/L (98-107); Estimated GFR 31; Glucose 97 mg/dL (83-110); Potassium 4.7 mmol/L (3.5-5.1); Sodium 136 mmol/L (136-145)
[2023-03-24] MEDS: Pantoprazole 40 MG VIAL IVP SCH (22:24)
[2023-03-24 23:26] LABS: Platelet Adequacy Comment Appears Decreased; RBC Morph Comment Within Normal Limits
[2023-03-24 23:29] LABS: Band 5 % (5-11); Eosinophils 9 % (0-10); Lymphocytes 21 % (21-51); Monocytes 21 % (0-10); Neutrophil 44 % (42-75)
[2023-03-25 05:26] LABS: #Monocytes 0.1 10x3/uL (0.0-1.1); #Neutrophils 2.2 10x3/uL (1.5-8.4); %Basophils 1.2 % (0.0-2.0); %Eosinophils 0.4 % (0.0-6.0); %Lymphocytes 7.6 % (18.0-47.0); %Monocytes 2.8 % (0.0-10.0); %Neutrophils 87.6 % (40.0-75.0); Hemoglobin 9.1 g/dL (12.0-15.5); Mean Corpuscular HGB CONC 30.3 g/dL (32.0-36.0); Mean Corpuscular Hemoglobin 26.8 pg (27.0-33.0); Mean Corpuscular Volume 88.2 fl (81.6-98.3); Mean Platelet Volume 11.2 fl (7.4-10.4); Platelet Count 149 10x3/uL (150-450); RBC Distribution Width 20.4 % (11.5-14.5); White Blood Cell (WBC) Count 2.5 10x3/uL (3.5-10.5)
[2023-03-25 05:30] LABS: INR-International Normal Ratio 1.4; PTT 47.2 sec (22.0-33.0); Prothrombin Time 15.4 sec (9.5-12.1)
[2023-03-25 05:36] LABS: ALT (SGPT) 21 U/L (8-55); AST (SGOT) 43 U/L (5-34); Albumin 3.5 g/dL (3.4-4.8); Alkaline Phosphatase 276 U/L (40-110); Anion Gap 15 mmol/L (10-20); BUN (Urea Nitrogen) 41 mg/dL (9.8-20.1); Bilirubin, Total 2.6 mg/dL (0.2-1.2); Calc. Creatinine Clearance 69 mL/min (70-130); Carbon Dioxide 25 mmol/L (23-31); Chloride 100 mmol/L (98-107); Estimated GFR 29; Globulin 3.5 g/dL (2.4-3.5); Glucose 106 mg/dL (83-110); Magnesium 2.2 mg/dL (1.6-2.6); Phosphorus 4.5 mg/dL (2.3-4.7); Potassium 5.2 mmol/L (3.5-5.1); Sodium 135 mmol/L (136-145)
[2023-03-25] MEDS ORDERED: dilTIAZem 25 MG/5 ML VIAL SLOW IVP SCH (06:30)
[2023-03-25] MEDS: Mometasone/Formoterol 200/5 60 PUFF INH SCH ×2 (06:30→19:15)
[2023-03-25] MEDS ORDERED: Albumin 25% 25 GM/100 ML BOT IVPB SCH (06:30)
[2023-03-25] MEDS: Spironolactone 25 MG TAB PO SCH (08:32)
[2023-03-25] MEDS: Cholecalciferol 1,000 UNITS (25 MCG) TAB PO SCH (08:33)
[2023-03-25] MEDS: Apixaban 5 MG TAB PO SCH ×2 (08:33→21:00)
[2023-03-25] MEDS: Metolazone 5 MG TAB PO SCH (08:33)
[2023-03-25] MEDS: Folic Acid 1 MG TAB PO SCH (08:33)
[2023-03-25] MEDS: Atorvastatin Calcium 40 MG TAB PO SCH (08:34)
[2023-03-25] MEDS: Pramipexole Di-HCl 1 MG TAB PO SCH ×4 (08:34→23:25)
[2023-03-25] MEDS: Cyanocobalamin (Vitamin B-12) 1,000 MCG TAB PO SCH (08:35)
[2023-03-25] MEDS: Nystatin Cream 15 GM TUBE TOP SCH ×2 (08:40→21:00)
[2023-03-25] MEDS ORDERED: LOKELMA 10 GM PACKET PO SCH (08:45)
[2023-03-25 09:06] LABS: Actual Bicarbonate (HCO3v) 25.8 mEq/L (22-28); Base Excess 0.1 mEq/L (-2 - +2); Calcium, Ionized (venous) 1.07 mmol/L (1.16-1.32); Chloride (VBG) 101 mmol/L (98-106); Hematocrit-VBG 30 % (36.0-47.0); Hemoglobin (Hb) 10.3 g/dL (11.7-16.1); Potassium (VBG) 4.96 mmol/L (3.70-5.30); Puncture Site Other Site; RapidComm Collect By CBN; Sodium 133.3 mmol/L (133-146); pH (venous) 7.363 (7.32-7.43)
[2023-03-25 09:08] LABS: Actual Bicarbonate (HCO3v) 27.6 mEq/L (22-28); Base Excess 0.3 mEq/L (-2 - +2); Chloride (VBG) 99 mmol/L (98-106); Hematocrit-VBG 28 % (36.0-47.0); Hemoglobin (Hb) 9.6 g/dL (11.7-16.1); Potassium (VBG) 4.55 mmol/L (3.70-5.30); Puncture Site Other Site; RapidComm Collect By CBN; Sodium 133.1 mmol/L (133-146); pH (venous) 7.289 (7.32-7.43)
[2023-03-25] MEDS: acetaZOLAMIDE Sodium 500 MG in Sodium Chloride 0.9% 50 ML IVPB SCH (09:09)
[2023-03-25] MEDS: Pantoprazole 40 MG VIAL IVP SCH ×2 (09:12→20:59)
[2023-03-25] MEDS ORDERED: Sodium Chloride 0.9% 500 ML IV SCH (11:15)
[2023-03-25 11:29] LABS: Actual Bicarbonate (HCO3v) 22.9 mEq/L (22-28); Base Excess -2.5 mEq/L (-2 - +2); Calcium, Ionized (venous) 1.06 mmol/L (1.16-1.32); Chloride (VBG) 99 mmol/L (98-106); Hematocrit-VBG 29 % (36.0-47.0); Hemoglobin (Hb) 9.8 g/dL (11.7-16.1); Potassium (VBG) 4.84 mmol/L (3.70-5.30); Puncture Site Other Site; RapidComm Collect By CBN; Sodium 133.5 mmol/L (133-146)
[2023-03-25 11:59] LABS: Troponin I Less than 0.010 ng/mL (< 0.028)
[2023-03-25] MEDS: Albumin 25% 25 GM/100 ML BOT IVPB SCH ×3 (12:23→23:09)
[2023-03-25] MEDS: cefTRIAXone\\ROCEPHIN 1 GM in Sodium Chloride 0.9% 100 ML IVPB SCH (12:23)
[2023-03-25] MEDS ORDERED: Morphine 2 MG/ML VIAL SLOW IVP SCH (20:15)
[2023-03-25] MEDS: Multivit, Therapeutic 1 TAB PO SCH ×2 (20:59→23:24)
[2023-03-26 04:03] LABS: #Monocytes 0.4 10x3/uL (0.0-1.1); #Neutrophils 2.7 10x3/uL (1.5-8.4); %Lymphocytes 8.8 % (18.0-47.0); %Monocytes 11.4 % (0.0-10.0); %Neutrophils 79.5 % (40.0-75.0); Hematocrit 26.8 % (34.9-44.5); Hemoglobin 8.2 g/dL (12.0-15.5); Mean Corpuscular HGB CONC 30.6 g/dL (32.0-36.0); Mean Corpuscular Hemoglobin 27.3 pg (27.0-33.0); Mean Corpuscular Volume 89.3 fl (81.6-98.3); Mean Platelet Volume 10.7 fl (7.4-10.4); Platelet Count 126 10x3/uL (150-450); RBC Distribution Width 20.3 % (11.5-14.5); White Blood Cell (WBC) Count 3.4 10x3/uL (3.5-10.5)
[2023-03-26 04:07] LABS: ALT (SGPT) 19 U/L (8-55); AST (SGOT) 34 U/L (5-34); Alkaline Phosphatase 229 U/L (40-110); Anion Gap 18 mmol/L (10-20); BUN (Urea Nitrogen) 46 mg/dL (9.8-20.1); Bilirubin, Total 2.4 mg/dL (0.2-1.2); Calc. Creatinine Clearance 53 mL/min (70-130); Calcium 8.6 mg/dL (7.8-10.44); Carbon Dioxide 23 mmol/L (23-31); Chloride 98 mmol/L (98-107); Estimated GFR 21; Glucose 140 mg/dL (83-110); Sodium 134 mmol/L (136-145)
[2023-03-26 04:10] LABS: INR-International Normal Ratio 1.6; PTT 43.6 sec (22.0-33.0)
[2023-03-26] MEDS: Mometasone/Formoterol 200/5 60 PUFF INH SCH (07:47)
[2023-03-26] MEDS: acetaZOLAMIDE Sodium 500 MG in Sodium Chloride 0.9% 50 ML IVPB SCH (08:22)
[2023-03-26] MEDS: Spironolactone 25 MG TAB PO SCH (08:23)
[2023-03-26] MEDS: Pramipexole Di-HCl 1 MG TAB PO SCH ×3 (08:23→20:59)
[2023-03-26] MEDS: Cholecalciferol 1,000 UNITS (25 MCG) TAB PO SCH (08:24)
[2023-03-26] MEDS: Metolazone 5 MG TAB PO SCH (08:24)
[2023-03-26] MEDS: Atorvastatin Calcium 40 MG TAB PO SCH (08:24)
[2023-03-26] MEDS: Apixaban 5 MG TAB PO SCH ×2 (08:24→21:09)
[2023-03-26] MEDS: Cyanocobalamin (Vitamin B-12) 1,000 MCG TAB PO SCH (08:24)
[2023-03-26] MEDS: Folic Acid 1 MG TAB PO SCH (08:24)
[2023-03-26] MEDS: Nystatin Cream 15 GM TUBE TOP SCH ×2 (08:35→21:01)
[2023-03-26] MEDS ORDERED: VANCOMYCIN 1.75 GM/350 ML BAG 1.75 GM in Premix Bag 1 BAG IVPB SCH (09:00)
[2023-03-26] MEDS: Pantoprazole 40 MG VIAL IVP SCH ×2 (09:01→20:59)
[2023-03-26] MEDS: cefTRIAXone\\ROCEPHIN 1 GM in Sodium Chloride 0.9% 100 ML IVPB SCH (11:11)
[2023-03-26] MEDS: Multivit, Therapeutic 1 TAB PO SCH (21:00)
[2023-03-27] MEDS ORDERED: Lorazepam 2 MG/ML VIAL SLOW IVP SCH (00:15)
[2023-03-27] MEDS ORDERED: Morphine 2 MG/ML VIAL SLOW IVP SCH ×2 (00:15→16:30)
[2023-03-27 03:54] LABS: #Eosinphils 0.2 10x3/uL (0.0-0.5); #Monocytes 0.9 10x3/uL (0.0-1.1); #Neutrophils 3.2 10x3/uL (1.5-8.4); %Basophils 0.4 % (0.0-2.0); %Eosinophils 3.4 % (0.0-6.0); %Lymphocytes 7.8 % (18.0-47.0); %Monocytes 19.5 % (0.0-10.0); %Neutrophils 68.5 % (40.0-75.0); Hematocrit 29.4 % (34.9-44.5); Hemoglobin 8.7 g/dL (12.0-15.5); Mean Corpuscular HGB CONC 29.6 g/dL (32.0-36.0); Mean Corpuscular Volume 91.3 fl (81.6-98.3); Mean Platelet Volume 11.1 fl (7.4-10.4); Platelet Count 145 10x3/uL (150-450); RBC Distribution Width 20.4 % (11.5-14.5); Red Blood Cell (RBC) Count 3.22 10x6/uL (3.90-5.03); White Blood Cell (WBC) Count 4.7 10x3/uL (3.5-10.5)
[2023-03-27 03:58] LABS: INR-International Normal Ratio 1.6; PTT 42.1 sec (22.0-33.0)
[2023-03-27 04:02] LABS: ALT (SGPT) 20 U/L (8-55); AST (SGOT) 37 U/L (5-34); Alkaline Phosphatase 228 U/L (40-110); Anion Gap 19 mmol/L (10-20); BUN (Urea Nitrogen) 52 mg/dL (9.8-20.1); Bilirubin, Total 2.1 mg/dL (0.2-1.2); Calc. Creatinine Clearance 44 mL/min (70-130); Calcium 8.4 mg/dL (7.8-10.44); Carbon Dioxide 22 mmol/L (23-31); Chloride 97 mmol/L (98-107); Estimated GFR 17; Globulin 2.8 g/dL (2.4-3.5); Glucose 116 mg/dL (83-110); Potassium 5.1 mmol/L (3.5-5.1); Protein, Total 6.8 g/dL (5.8-8.1); Sodium 133 mmol/L (136-145)
[2023-03-27 04:04] LABS: Vancomycin, Random 14.3 ug/mL (See Comment)
[2023-03-27] MEDS: Mometasone/Formoterol 200/5 60 PUFF INH SCH ×3 (05:26→18:50)
[2023-03-27] MEDS: Folic Acid 1 MG TAB PO SCH (08:33)
[2023-03-27] MEDS: Pramipexole Di-HCl 1 MG TAB PO SCH ×3 (08:33→20:11)
[2023-03-27] MEDS: Atorvastatin Calcium 40 MG TAB PO SCH (08:33)
[2023-03-27] MEDS: Pantoprazole 40 MG VIAL IVP SCH ×2 (08:33→21:15)
[2023-03-27] MEDS: Cyanocobalamin (Vitamin B-12) 1,000 MCG TAB PO SCH (08:33)
[2023-03-27] MEDS: Cholecalciferol 1,000 UNITS (25 MCG) TAB PO SCH (08:34)
[2023-03-27] MEDS: Apixaban 5 MG TAB PO SCH (08:34)
[2023-03-27] MEDS: Nystatin Cream 15 GM TUBE TOP SCH ×2 (08:37→21:16)
[2023-03-27] MEDS ORDERED: LOKELMA 10 GM PACKET PO SCH (10:00)
[2023-03-27] MEDS ORDERED: Vancomycin Dose by Levels Sliding Scale (Wt > 99) FS SCH (10:30)
[2023-03-27] MEDS: cefTRIAXone\\ROCEPHIN 1 GM in Sodium Chloride 0.9% 100 ML IVPB SCH (10:34)
[2023-03-27] MEDS ORDERED: Vancomycin HCl 1 GM in Sodium Chloride 0.9% 250 ML 250 ML IVPB SCH (11:00)
[2023-03-27] MEDS ORDERED: Sodium Chloride 0.9% 1,000 ML IV SCH (15:00)
[2023-03-27] MEDS: Multivit, Therapeutic 1 TAB PO SCH (20:10)
[2023-03-28 04:01] LABS: #Eosinphils 0.1 10x3/uL (0.0-0.5); #Monocytes 0.6 10x3/uL (0.0-1.1); #Neutrophils 3.3 10x3/uL (1.5-8.4); %Basophils 0.5 % (0.0-2.0); %Eosinophils 1.2 % (0.0-6.0); %Lymphocytes 6.7 % (18.0-47.0); %Monocytes 14.8 % (0.0-10.0); %Neutrophils 76.6 % (40.0-75.0); Hematocrit 28.1 % (34.9-44.5); Hemoglobin 8.6 g/dL (12.0-15.5); Mean Corpuscular HGB CONC 30.6 g/dL (32.0-36.0); Mean Corpuscular Hemoglobin 26.8 pg (27.0-33.0); Mean Corpuscular Volume 87.5 fl (81.6-98.3); Mean Platelet Volume 11.6 fl (7.4-10.4); Platelet Count 101 10x3/uL (150-450); RBC Distribution Width 20.2 % (11.5-14.5); Red Blood Cell (RBC) Count 3.21 10x6/uL (3.90-5.03); White Blood Cell (WBC) Count 4.3 10x3/uL (3.5-10.5)
[2023-03-28 04:05] LABS: INR-International Normal Ratio 1.6; PTT 40.5 sec (22.0-33.0); Prothrombin Time 16.7 sec (9.5-12.1)
[2023-03-28 04:10] LABS: ALT (SGPT) 21 U/L (8-55); AST (SGOT) 42 U/L (5-34); Albumin 3.7 g/dL (3.4-4.8); Alkaline Phosphatase 202 U/L (40-110); Anion Gap 20 mmol/L (10-20); BUN (Urea Nitrogen) 57 mg/dL (9.8-20.1); Bilirubin, Total 1.9 mg/dL (0.2-1.2); Calc. Creatinine Clearance 38 mL/min (70-130); Calcium 8.3 mg/dL (7.8-10.44); Carbon Dioxide 20 mmol/L (23-31); Chloride 98 mmol/L (98-107); Estimated GFR 15; Globulin 2.8 g/dL (2.4-3.5); Glucose 107 mg/dL (83-110); Potassium 5.1 mmol/L (3.5-5.1); Protein, Total 6.5 g/dL (5.8-8.1); Sodium 133 mmol/L (136-145)
[2023-03-28] MEDS: Mometasone/Formoterol 200/5 60 PUFF INH SCH (07:02)
[2023-03-28 08:24] VITALS: BP 96/74; TEMP 97
[2023-03-28] MEDS: Atorvastatin Calcium 40 MG TAB PO SCH (09:11)
[2023-03-28] MEDS: Folic Acid 1 MG TAB PO SCH (09:12)
[2023-03-28] MEDS: Cyanocobalamin (Vitamin B-12) 1,000 MCG TAB PO SCH (09:12)
[2023-03-28] MEDS: Cholecalciferol 1,000 UNITS (25 MCG) TAB PO SCH (09:12)
[2023-03-28] MEDS: Pramipexole Di-HCl 1 MG TAB PO SCH (09:12)
[2023-03-28] MEDS: Nystatin Cream 15 GM TUBE TOP SCH (09:18)
[2023-03-28] MEDS: Pantoprazole 40 MG VIAL IVP SCH (09:19)
[2023-03-28] MEDS ORDERED: Morphine 2 MG/ML VIAL SLOW IVP SCH (10:00)
[2023-03-28] MEDS: cefTRIAXone\\ROCEPHIN 1 GM in Sodium Chloride 0.9% 100 ML IVPB SCH (11:18)
== END 2023-03-28 14:02 | disposition hospice, inpatient (51) | DRG 291 ==
LOC: CSHERS 15:47 → SUATTDRO 15:47 → CSHTELE 19:53 → CSHIMCU 03-24 22:54
PROVIDERS: ADMIT Family Medicine; ATTEND Internal Medicine
PROC: 30233J1 Transfusion of Nonautologous Serum Albumin into Peripheral Vein, Percutaneous Approach (ICD-10-PCS; 2023-03-23)
PROC: 5A09357 Assistance with Respiratory Ventilation, Less than 24 Consecutive Hours, Continuous Positive Airway Pressure (ICD-10-PCS; principal; 2023-03-24)
PROC: 5A09457 Assistance with Respiratory Ventilation, 24-96 Consecutive Hours, Continuous Positive Airway Pressure (ICD-10-PCS; 2023-03-24)
PROC: 5A0945A Assistance with Respiratory Ventilation, 24-96 Consecutive Hours, High Flow/Velocity Cannula (ICD-10-PCS; 2023-03-26)
DX: I13.0 Hypertensive heart and chronic kidney disease with heart failure and stage 1 through stage 4 chronic kidney disease, or unspecified chronic kidney disease (principal); I50.23 Acute on chronic systolic (congestive) heart failure; J96.01 Acute respiratory failure with hypoxia; N18.4 Chronic kidney disease, stage 4 (severe); N17.9 Acute kidney failure, unspecified; Z68.43 Body mass index [BMI] 50.0-59.9, adult; E87.20 Acidosis, unspecified; N39.0 Urinary tract infection, site not specified; E78.5 Hyperlipidemia, unspecified; I48.91 Unspecified atrial fibrillation; E11.22 Type 2 diabetes mellitus with diabetic chronic kidney disease; Z66 Do not resuscitate; D70.9 Neutropenia, unspecified; E66.01 Morbid (severe) obesity due to excess calories; E88.09 Other disorders of plasma-protein metabolism, not elsewhere classified; E87.5 Hyperkalemia; Z51.5 Encounter for palliative care; Z85.3 Personal history of malignant neoplasm of breast; Z98.890 Other specified postprocedural states; Z88.1 Allergy status to other antibiotic agents; Z91.040 Latex allergy status; Z91.013 Allergy to seafood; Z91.09 Other allergy status, other than to drugs and biological substances; Z79.01 Long term (current) use of anticoagulants; Z79.899 Other long term (current) drug therapy
CPT/HCPCS: 36415; 36416; 70450; 71045; 71250; 74177; 76770; 80053; 80202; 81001; 82140; 82533; 82570; 82805; 83605; 83735; 83880; 84100; 84145; 84156; 84443; 84484; 85025; 85610; 85730; 87040; 87077; 87086; 87186; 93005; 94640; 94660; 94760; 94762; 96374; 97139; C9113; J0696; J1120; J2060; J2272; J2930; J3370; J3490; J7030; J7050; J7620; P9047

== ENCOUNTER 2023-03-28 14:02 | Inpatient (IN) | payer MEDICARE, OTHER ==
[2023-03-28] MEDS ORDERED: Ondansetron PF 4 MG/2 ML Vial IVP PRN (14:15)
[2023-03-28] MEDS ORDERED: Scopolamine 1.5 mg/72 hour Patch TOP PRN (14:15)
[2023-03-28 14:16] VITALS: BMI 54.5
[2023-03-28] MEDS ORDERED: Morphine 4 MG/ML VIAL ONE (14:28)
[2023-03-28] MEDS: Lorazepam 2 MG/ML VIAL SLOW IVP PRN (14:29)
[2023-03-28] MEDS: Morphine 4 MG/ML VIAL SLOW IVP PRN (14:29)
[2023-03-29] MEDS: Morphine 4 MG/ML VIAL SLOW IVP PRN (03:10)
[2023-03-29] MEDS: Lorazepam 2 MG/ML VIAL SLOW IVP PRN ×2 (03:33→09:05)
[2023-03-29] MEDS ORDERED: Lorazepam 2 MG/ML VIAL SLOW IVP SCH (11:30)
[2023-03-29] MEDS ORDERED: Morphine 2 MG/ML VIAL SLOW IVP SCH (11:30)
[2023-03-29] MEDS: Lorazepam 2 MG/ML VIAL SLOW IVP SCH ×3 (15:29→23:16)
[2023-03-29] MEDS: Morphine 2 MG/ML VIAL SLOW IVP SCH ×3 (15:30→23:15)
[2023-03-29] MEDS: Atropine Sulfate 1% Ophth Soln 5 ml Bottle SL PRN ×2 (21:42→23:20)
[2023-03-30] MEDS: Morphine 2 MG/ML VIAL SLOW IVP SCH ×5 (03:55→20:34)
[2023-03-30] MEDS: Lorazepam 2 MG/ML VIAL SLOW IVP SCH ×5 (03:56→20:34)
[2023-03-30] MEDS: Atropine Sulfate 1% Ophth Soln 5 ml Bottle SL PRN (11:31)
[2023-03-30] MEDS ORDERED: Atropine Sulfate 1% Ophth Soln 5 ml Bottle SL PRN (13:39)
[2023-03-30] MEDS: Morphine 4 MG/ML VIAL SLOW IVP PRN (13:48)
[2023-03-30] MEDS ORDERED: Scopolamine 1.5 mg/72 hour Patch TOP SCH (14:00)
[2023-03-31] MEDS: Lorazepam 2 MG/ML VIAL SLOW IVP SCH (00:20)
[2023-03-31] MEDS: Morphine 2 MG/ML VIAL SLOW IVP SCH (00:20)
[2023-03-31 01:38] VITALS: BP 0/0; TEMP 0
== END 2023-03-31 03:30 | disposition expired | DRG 951 ==
LOC: CSHIMCU 14:02 → CSHTELE 03-30 18:28
PROVIDERS: ADMIT Family Medicine; ATTEND Family Medicine
DX: Z51.5 Encounter for palliative care (principal); I50.23 Acute on chronic systolic (congestive) heart failure; J96.01 Acute respiratory failure with hypoxia; N18.4 Chronic kidney disease, stage 4 (severe); N17.9 Acute kidney failure, unspecified; N39.0 Urinary tract infection, site not specified; I13.0 Hypertensive heart and chronic kidney disease with heart failure and stage 1 through stage 4 chronic kidney disease, or unspecified chronic kidney disease; Z68.43 Body mass index [BMI] 50.0-59.9, adult; E88.09 Other disorders of plasma-protein metabolism, not elsewhere classified; D63.1 Anemia in chronic kidney disease; E66.01 Morbid (severe) obesity due to excess calories
CPT/HCPCS: 94760; 94762; J2060; J2270; J2272